=== PATIENT | female | born 1965 | race Caucasian/White ===

== ENCOUNTER → 2016-09-22 | Outpatient (CLI) | payer OTHER ==
--- NOTE | 2016-09-22 11:39 | REP ---
BILATERAL MAMMOGRAM WITH DIAGNOSTIC MAMMOGRAM RIGHT BREAST AND RIGHT BREAST ULTRASOUND: Bilateral mammography performed in the MLO and CC projections. Comparison made with prior studies 10/06/2010 and 10/28/2006. Moderate fibroglandular tissue is seen bilaterally. I see no mass or architectural distortion. Scattered tiny calcifications are again seen bilaterally compatible with sclerosis adenosis. Reportedly, there is a palpable abnormality at 12 -o'clock position right breast and that area is marked on the skin with a triangular marker. Additional spot compression views of that area failed to reveal an underlying mass. Real-time sonographic evaluation of the right breast is performed in the region of the 12 -o'clock position and demonstrates no cystic or solid nodule. IMPRESSION: ACR 2 benign. No mass or clustered microcalcifications. There is no mammographic or sonographic evidence of a mass at the site of the reported palpable abnormality at 12 -o'clock position right breast. A negative mammogram and ultrasound should not deter biopsy of there is a clinically suspicious palpable mass present. Recommend followup mammogram in one year. BI-RADS/ACR category 2 mammogram. Benign finding(s). Routine annual screening mammography (for women over age 40). This mammogram was interpreted with the aid of an FDA-approved computer-aided detection system. A. Negative x-ray reports should not delay biopsy if a dominant or clinically suspicious mass is present. B. Four to eight percent of cancers are not identified by x-ray. C. Adenosis and dense breasts may obscure an underlying neoplasm. The patient states she/he had a clinical breast exam in August 2016. The patient letter being requested is M2. Signed by Wolf Mercado MD 09/22/2016 05:21 P
== END ==
LOC: M RAD 09:30
PROVIDERS: ATTEND Family Medicine
DX: Z12.39 Encounter for other screening for malignant neoplasm of breast (principal); N63 Unspecified lump in breast

== ENCOUNTER → 2016-10-22 | Day surgery (SDC) | payer OTHER ==
[~2016-10-22] VITALS: Ht 170.2 cm; Wt 73.0 kg
[~2016-10-22] MED LIST: ATEN25TA PO; BUPIVACAINE/EPIN 0.25% 30 ML VIAL As Ordered ONE; CLINDAMYCIN 600 MG in APPROPRIATE DILUENT 1 EA IV ONE; EFFE150C PO; ENAL5TAB PO; GABA-283 PO; GLYCOPYRROLATE INJ 0.2 MG/ML 2 ML VIAL As Ordered ONE; HYDRO50TAB GT; LIDOCAINE 2% INJ 100 MG/5 ML SDV (FOR ANES.) As Ordered ONE; LR 1,000 ML IV SCH; MEPERIDINE INJ 25 MG/ML VIAL (J2175) IV PRN; MIDAZOLAM INJ 2 MG/2 ML VIAL (J2250) As Ordered ONE; NEOSTIGMINE 1MG/ML 5 ML SYRINGE (J2710) As Ordered ONE; NITR4TASL SL; NORCO, ANEXSIA 5/325MG TABLET (HYDROcodone/ACETAMINOPHEN) PO PRN; ONDANSETRON 4MG/2ML VIAL (J2405) As Ordered ONE; ONDANSETRON 4MG/2ML VIAL (J2405) IV PRN; PHENYLephrine HCL 500 MCG/5 ML (100MCG/ML) SYRINGE (J2370) As Ordered ONE; PRIL20CA9 PO; PROPOFOL 200 MG/20 ML VIAL As Ordered ONE; ROCURONIUM BROMIDE 50 MG/5 ML VIAL As Ordered ONE; SCOPOLAMINE 1.5 MG TRANSDERMAL As Ordered ONE; SCOPOLAMINE 1.5 MG TRANSDERMAL TOP ONE; VIST50CA PO; WELLTAB40 PO; XANA0.25 PO; ePHEDrine SULFATE 25 MG/5 ML(5MG/ML) SYRINGE As Ordered ONE; fentaNYL 100 MCG/2 ML INJECTION (J3010) As Ordered ONE; fentaNYL 100 MCG/2 ML INJECTION (J3010) IV PRN
[2016-10-22 10:10] VITALS: BP 110/60
--- NOTE | 2016-10-22 21:28 | RO ---
DATE OF PROCEDURE: 10/22/2016 PREOPERATIVE DIAGNOSIS: Symptomatic cholelithiasis. POSTOPERATIVE DIAGNOSIS: Symptomatic cholelithiasis. PROCEDURE: Laparoscopic cholecystectomy. SURGEON: Dr. Wolf Correa GYROSCOPIC INSTRUMENT MECHANIC: Dr. Nnamdi Rosas ANESTHESIA: General. ESTIMATED BLOOD LOSS: 5 mL. COMPLICATIONS: None. INDICATION FOR PROCEDURE: The patient is a 50-year-old female who presents with a history of persistent right upper quadrant abdominal pain, found to have stones on ultrasound. Recommendation was then to proceed with laparoscopic, possible open cholecystectomy. Risks and benefits of the procedure, not limited to but including bleeding, infection, hernia formation, damage to surrounding structures, and possible need for further surgery discussed in detail with the patient, informed consent was obtained and procedure was planned. DESCRIPTION OF PROCEDURE: The patient was brought back to operating room eight and after sufficient sedation, the abdomen was sterilely prepped and draped. Next, a time out was done to confirm proper patient and proper procedure. Following that, a stab incision was made in the left upper quadrant. Veress needle was inserted and the abdomen was insufflated to 15 mmHg. Next, a 5 mm infraumbilical incision was made. A 5 mm Optiview port was then used to gain access to the abdomen. Once the abdomen was entered, Veress needle site was examined. There were no signs of injury. Veress needle was then removed. 10 mm port was placed subxiphoid, two 5 mm ports in the right upper quadrant. The cystic duct and cystic artery were both then clearly dissected free. They were both then doubly clipped and cut. Gallbladder was then removed from the gallbladder fossa using electrocautery and then brought out through the subxiphoid port site in a 10 mm Endo Catch bag. The abdomen was then desufflated. Skin incisions were closed with #4-0 Vicryl subcuticular sutures. The abdomen was cleaned and dried. Steri-Strips, 4 x 4 and tape were applied, thus ending procedure.
== END | disposition home or self-care (01) ==
LOC: M SDC 06:06
PROVIDERS: ATTEND Surgery
DX: K80.20 Calculus of gallbladder without cholecystitis without obstruction (principal); I10 Essential (primary) hypertension; I25.2 Old myocardial infarction; F32.9 Major depressive disorder, single episode, unspecified; F17.290 Nicotine dependence, other tobacco product, uncomplicated; R94.31 Abnormal electrocardiogram [ECG] [EKG]; I20.9 Angina pectoris, unspecified; K21.9 Gastro-esophageal reflux disease without esophagitis; G89.29 Other chronic pain; M54.9 Dorsalgia, unspecified; M12.9 Arthropathy, unspecified; F41.9 Anxiety disorder, unspecified; M79.7 Fibromyalgia; G47.30 Sleep apnea, unspecified; Z88.1 Allergy status to other antibiotic agents; Z88.5 Allergy status to narcotic agent; Z88.6 Allergy status to analgesic agent; Z79.899 Other long term (current) drug therapy; Z98.84 Bariatric surgery status; Z90.710 Acquired absence of both cervix and uterus; Z98.51 Tubal ligation status
CPT/HCPCS: 47562; 88304; J2250; J2370; J2405; J2710; J3010

== ENCOUNTER 2016-11-07 14:23 | Emergency (ER) | payer OTHER ==
[~2016-11-07 14:23] MED LIST changes: -BUPIVACAINE/EPIN 0.25% 30 ML VIAL As Ordered ONE; -CLINDAMYCIN 600 MG in APPROPRIATE DILUENT 1 EA IV ONE; -GLYCOPYRROLATE INJ 0.2 MG/ML 2 ML VIAL As Ordered ONE; -LIDOCAINE 2% INJ 100 MG/5 ML SDV (FOR ANES.) As Ordered ONE; -LR 1,000 ML IV SCH; -MEPERIDINE INJ 25 MG/ML VIAL (J2175) IV PRN; -MIDAZOLAM INJ 2 MG/2 ML VIAL (J2250) As Ordered ONE; -NEOSTIGMINE 1MG/ML 5 ML SYRINGE (J2710) As Ordered ONE; -NORCO, ANEXSIA 5/325MG TABLET (HYDROcodone/ACETAMINOPHEN) PO PRN; -ONDANSETRON 4MG/2ML VIAL (J2405) As Ordered ONE; -ONDANSETRON 4MG/2ML VIAL (J2405) IV PRN; -PHENYLephrine HCL 500 MCG/5 ML (100MCG/ML) SYRINGE (J2370) As Ordered ONE; -PROPOFOL 200 MG/20 ML VIAL As Ordered ONE; -ROCURONIUM BROMIDE 50 MG/5 ML VIAL As Ordered ONE; -SCOPOLAMINE 1.5 MG TRANSDERMAL As Ordered ONE; -SCOPOLAMINE 1.5 MG TRANSDERMAL TOP ONE; -ePHEDrine SULFATE 25 MG/5 ML(5MG/ML) SYRINGE As Ordered ONE; -fentaNYL 100 MCG/2 ML INJECTION (J3010) As Ordered ONE; -fentaNYL 100 MCG/2 ML INJECTION (J3010) IV PRN
--- NOTE | 2016-11-07 15:06 | REP ---
Clinical: Trauma. Technique: AP, lateral, bilateral oblique and sunrise views of the right knee. Comparison: 03/28/2011. Findings: Mild tricompartmental osteoarthritic degenerative changes minimally progressed from prior examination. No acute fracture or dislocation. Small effusion cannot be excluded. No subcutaneous emphysema or radiodense foreign body. Impression: Mild tricompartmental degenerative changes. Possible small effusion. No acute fracture or dislocation Signed by Chris Ackerman MD 11/07/2016 02:58 P
[2016-11-07] MEDS ORDERED: ACETAMINOPHEN 325 MG TAB As Ordered ONE (15:43)
--- NOTE | 2016-11-07 15:53 | EDDOCDS ---
Physician Documentation [facility] Name: Lisa Samuel Age: 50 yrs Sex: Female : 1965 Arrival Date: 11/07/2016 Time: 14:23 Bed Triage 2 Private MD: Robbie Barnett W Disposition: 11/07/16 15:25 Discharged to Home/Self Care. Impression: Pain in right knee. - Condition is Stable. - Discharge Instructions: Knee Bracing, Knee Pain. - Medication Reconciliation, Local Pharmacy Hours form. - Follow up: Orthopaedics, [facility]; When: Call to arrange an appointment; Reason: Further diagnostic work-up, Recheck today's complaints, Continuance of care. - Problem is new. - Symptoms are unchanged. Historical: - Allergies: Keflex; Reglan; Ibuprofen (gastric bypass); - Home Meds: 1. atenolol 25 mg Oral tab 1 tab once daily 2. enalapril maleate 5 mg Oral tab 1 tab once daily 3. gabapentin 400 mg oral tab 3 times per day 4. Prilosec 20 mg Oral cpDR 1 cap 2 times per day 5. Wellbutrin XL 300 mg Oral Tb24 1 tab once daily 6. NitroQuick SL daily 7. Effexor 150 mg Oral daily 8. Vyvanse 20 mg oral cap once daily 9. hydroxyzine HCl 100 mg Oral tab nightly 1-2 tabs prn 10. Xanax 0.5 mg Oral tab 3 times per day - PMHx: CAD; Depression; Fibromyalgia; Hypertension; [place]; - PSHx: discetomy/laminectomy 01/2014; Hysterectomy; Laminectomy. lumbar; Gastric Bypass (October 2010); Cholecystectomy; - Social history: Smoking status: Patient uses tobacco products, current every day smoker. No barriers to communication noted, The patient speaks fluent Turkmen, Speaks appropriately for age. - Family history: Not pertinent. - : The pt / caregiver states he / she is not on anticoagulants. Home medication list is obtained from the patient. - Exposure Risk Screening:: None identified. 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 7 in. (170.18 cm) (R); Pain 10/10; 14:24 Body Mass Index 27.10 (78.47 kg, 170.18 cm) gr2 MDM: 14:34 Knee, Complete Ordered. EDMS 15:16 Financial registration complete. lg 15:25 Knee Immobilizer ordered. btw 15:25 Crutches ordered. btw 15:42 Acetaminophen Tablet 975 mg PO once ordered. btw Administered Medications: 15:49 Drug: Acetaminophen 975 mg [acetaminophen 325 mg tablet (3 tabs)] Route: PO; [facility] 15:52 Follow up: Response: Pt left department before re-evaluation is appropriate [facility] Signatures: Dispatcher [employer] EDMS Ruth Meyer, RN RN Umm Baer, Reg Reg Jim Rebolledo PA PA btw Gabi Lewis RN RN [facility] MTDD
--- NOTE | 2016-11-07 15:53 | EDDOCDS ---
Nurse's Notes [facility] Name: Lisa Samuel Age: 50 yrs Sex: Female : 1965 Arrival Date: 11/07/2016 Time: 14:23 Bed Triage 2 Private MD: Robbie Barnett W Diagnosis: Pain in right knee Presentation: 11/07 14:28 Presenting complaint: Patient states: right knee pain while dancing last night .felt srm knee popped. states its swollen and feels like its disconnected when i walk. Adult Sepsis Screening: The patient does not have new or worsening altered mentation. Patient's respiratory rate is less than 22. Systolic blood pressure is greater than 100. Patient has a qSOFA score of 0- Negative Sepsis Screen. Suicide/Homicide risk assessment- the patient denies having any suicidal and/or homicidal ideations and does not present with any other emotional, behavioral or mental health complaints. 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 Transition of care: patient was not received from another setting of care. 14:28 Acuity: BUDDY Level 4 srm 14:28 Method Of Arrival: Wheelchair [facility] Triage Assessment: 14:32 General: Appears in no apparent distress, Behavior is appropriate for age, cooperative. srm Pain: Pain currently is 6 out of 10 on a pain scale. HIV screening NA for this visit Offered previously. 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 atenolol 25 mg Oral tab 1 tab once daily 2. enalapril maleate 5 mg Oral tab 1 tab once daily 3. gabapentin 400 mg oral tab 3 times per day 4. Prilosec 20 mg Oral cpDR 1 cap 2 times per day 5. Wellbutrin XL 300 mg Oral Tb24 1 tab once daily 6. NitroQuick SL daily 7. Effexor 150 mg Oral daily 8. Vyvanse 20 mg oral cap once daily 9. hydroxyzine HCl 100 mg Oral tab nightly 1-2 tabs prn 10. Xanax 0.5 mg Oral tab 3 times per day - PMHx: CAD; Depression; Fibromyalgia; Hypertension; [place]; - PSHx: discetomy/laminectomy 01/2014; Hysterectomy; Laminectomy. lumbar; Gastric Bypass (October 2010); Cholecystectomy; - Social history: Smoking status: Patient uses tobacco products, current every day smoker. No barriers to communication noted, The patient speaks fluent Samoan, Speaks appropriately for age. - Family history: Not pertinent. - : The pt / caregiver states he / she is not on anticoagulants. Home medication list is obtained from the patient. - Exposure Risk Screening:: None identified. Screenin:49 Screening information is obtained from the patient. Fall risk: No risks identified. [facility] Assistance ADL's: requires no assistance with activities of daily living. Abuse/DV Screen: The patient / caregiver reports he/she is: not in a situation that causes fear, pain or injury. Nutritional screening: No deficits noted. Advance Directives: There is no active DNR order. home support is adequate. Assessment: 15:49 General: Appears uncomfortable, Behavior is crying, related concerns regarding pain to [facility] provider, medications ordered and administered. Pain: Location: right knee Pain currently is 10 out of 10 on a pain scale. Respiratory: Airway is patent Respiratory effort is even, unlabored, Respiratory pattern is regular, symmetrical. Derm: Skin is pink, warm & dry. Vital Signs: 14:24 BP 145 / 81; Pulse 107; Resp 18 S; Temp 98.7(O); Pulse Ox 99% on R/A; Weight 78.47 kg gr2 (R); Height 5 ft. 7 in. (170.18 cm) (R); Pain 10/10; 14:24 Body Mass Index 27.10 (78.47 kg, 170.18 cm) gr2 Vitals: 14:24 Log In Time: November 07, 2016 at 14:24. gr2 ED Course: 14:24 Patient visited by Jaqueline Hogan. gr2 14:24 Robbie Barnett is Private Physician. gr2 14:24 Patient moved to Waiting gr2 14:25 Patient visited by Jaqueline Hogan. gr2 14:26 Patient moved to Pre RCE gr2 14:29 Triage Initiated srm 15:09 Knee, Complete Returned. EDMS 15:10 Patient moved to Triage 2 bcj 15:14 Jim Rebolledo PA is PHCP. btw 15:14 Bianca Wheat MD is Attending Physician. btw 15:14 Patient visited by Jim Rebolledo PA. btw 15:[facility]. btw 15:49 Patient visited by Yaneli Lynn. sew 15:49 The patient / caregiver is instructed regarding the plan of care and ED course. [facility] 15:49 Crutch training done. Knee immobilizer applied on right knee. Patient with positive sew distal sensation and brisk distal capillary refill after application. 15:49 No IV's were initiated during this patient's visit. No procedures done that require [facility] assistance. Administered Medications: 15:49 Drug: Acetaminophen 975 mg [acetaminophen 325 mg tablet (3 tabs)] Route: PO; [facility] 15:52 Follow up: Response: Pt left department before re-evaluation is appropriate [facility] Order Results: Radiology Order: Knee, Complete Test: Knee, Complete REASON FOR EXAMINATION: Trauma; Clinical: Trauma.; ; Technique: AP, lateral, bilateral oblique and sunrise views of the right knee.; ; Comparison: 03/28/2011.; ; Findings:; Mild tricompartmental osteoarthritic degenerative changes minimally progressed; from prior examination. No acute fracture or dislocation. Small effusion cannot; be excluded. No subcutaneous emphysema or radiodense foreign body.; ; Impression:; Mild tricompartmental degenerative changes.; Possible small effusion.; No acute fracture or dislocation; ; ; Signed by; Chris Ackerman MD 11/07/2016 02:58 P; Outcome: 15:25 Discharge ordered by Provider. btw 15:49 Discharge Assessment: Patient awake, alert and oriented x 3. No cognitive and/or [facility] functional deficits noted. Patient verbalized understanding of disposition instructions. patient administered narcotics - no. The following High Risk Discharge criteria are identified: None. Discharged to home with crutches, with significant other. Condition: good Condition: stable Condition: improved. Discharge instructions given to patient, Instructed on discharge instructions, follow up and referral plans. Rest, Ice, Compression and Elevation. Demonstrated understanding of instructions, medications, Pt was receptive of discharge instructions/ teaching. No special radiology studies were completed. Property :Personal belongings accompany Pt. 15:52 Patient left the ED. [facility] Signatures: Dispatcher [employer] EDNV Gonzalez Billingsley RN RN bcj Michelson, Staci, RN RN srm Wolfenden, Brandon, PA PA btw Hafner, Jane, RN RN [facility] Yaneli Lynn Gainslee gr2 JOEY
--- NOTE | 2016-11-09 16:53 | EDDOCDS ---
Physician Documentation [facility] Name: Lisa Samuel Age: 50 yrs Sex: Female : 1965 Arrival Date: 11/07/2016 Time: 14:23 Bed Triage 2 Private MD: Robbie Barnett W Disposition: 11/07/16 15:25 Discharged to Home/Self Care. Impression: Pain in right knee. - Condition is Stable. - Discharge Instructions: Knee Bracing, Knee Pain. - Medication Reconciliation, Local Pharmacy Hours form. - Follow up: Orthopaedics, [facility]; When: Call to arrange an appointment; Reason: Further diagnostic work-up, Recheck today's complaints, Continuance of care. - Problem is new. - Symptoms are unchanged. Historical: - Allergies: Keflex; Reglan; Ibuprofen (gastric bypass); - Home Meds: 1. atenolol 25 mg Oral tab 1 tab once daily 2. enalapril maleate 5 mg Oral tab 1 tab once daily 3. gabapentin 400 mg oral tab 3 times per day 4. Prilosec 20 mg Oral cpDR 1 cap 2 times per day 5. Wellbutrin XL 300 mg Oral Tb24 1 tab once daily 6. NitroQuick SL daily 7. Effexor 150 mg Oral daily 8. Vyvanse 20 mg oral cap once daily 9. hydroxyzine HCl 100 mg Oral tab nightly 1-2 tabs prn 10. Xanax 0.5 mg Oral tab 3 times per day - PMHx: CAD; Depression; Fibromyalgia; Hypertension; [place]; - PSHx: discetomy/laminectomy 01/2014; Hysterectomy; Laminectomy. lumbar; Gastric Bypass (October 2010); Cholecystectomy; - Social history: Smoking status: Patient uses tobacco products, current every day smoker. No barriers to communication noted, The patient speaks fluent Yakut, Speaks appropriately for age. - Family history: Not pertinent. - : The pt / caregiver states he / she is not on anticoagulants. Home medication list is obtained from the patient. - Exposure Risk Screening:: None identified. 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 7 in. (170.18 cm) (R); Pain 10/10; 14:24 Body Mass Index 27.10 (78.47 kg, 170.18 cm) gr2 MDM: 14:34 Knee, Complete Ordered. EDMS 15:16 Financial registration complete. lg 15:25 Knee Immobilizer ordered. btw 15:25 Crutches ordered. btw 15:42 Acetaminophen Tablet 975 mg PO once ordered. btw 16:03 [facility] Payment Agreement was scanned into [employer] and attached to record. lg 21:22 T-Sheet-- Draft Copy was scanned into [employer] and attached to record. klr Administered Medications: 15:49 Drug: Acetaminophen 975 mg [acetaminophen 325 mg tablet (3 tabs)] Route: PO; [facility] 15:52 Follow up: Response: Pt left department before re-evaluation is appropriate [facility] Signatures: Dispatcher [employer] EDMS Ruth Meyer, RN KATHRYN [facility] Umm Car, Adair Reg Jim Rebolledo PA PA w Gabi Lewis RN RN [facility] Anaya Perez klpadmini The chart was reviewed and I authenticate all verbal orders and agree with the evaluation and treatment provided.Attachments: 16:03 [facility] Payment Agreement lg 21:22 T-Sheet-- Draft Copy klr Chart Complete MTDD
--- NOTE | 2016-11-09 16:53 | EDDOCDS ---
Nurse's Notes [facility] Name: Lisa Samuel Age: 50 yrs Sex: Female : 1965 Arrival Date: 11/07/2016 Time: 14:23 Bed Triage 2 Private MD: Robbie Barnett W Diagnosis: Pain in right knee Presentation: 11/07 14:28 Presenting complaint: Patient states: right knee pain while dancing last night .felt srm knee popped. states its swollen and feels like its disconnected when i walk. Adult Sepsis Screening: The patient does not have new or worsening altered mentation. Patient's respiratory rate is less than 22. Systolic blood pressure is greater than 100. Patient has a qSOFA score of 0- Negative Sepsis Screen. Suicide/Homicide risk assessment- the patient denies having any suicidal and/or homicidal ideations and does not present with any other emotional, behavioral or mental health complaints. Status: Patient is not a financial services auditor or dependent. Transition of care: patient was not received from another setting of care. 14:28 Acuity: BUDDY Level 4 srm 14:28 Method Of Arrival: Wheelchair [facility] Triage Assessment: 14:32 General: Appears in no apparent distress, Behavior is appropriate for age, cooperative. srm Pain: Pain currently is 6 out of 10 on a pain scale. HIV screening NA for this visit Offered previously. 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 atenolol 25 mg Oral tab 1 tab once daily 2. enalapril maleate 5 mg Oral tab 1 tab once daily 3. gabapentin 400 mg oral tab 3 times per day 4. Prilosec 20 mg Oral cpDR 1 cap 2 times per day 5. Wellbutrin XL 300 mg Oral Tb24 1 tab once daily 6. NitroQuick SL daily 7. Effexor 150 mg Oral daily 8. Vyvanse 20 mg oral cap once daily 9. hydroxyzine HCl 100 mg Oral tab nightly 1-2 tabs prn 10. Xanax 0.5 mg Oral tab 3 times per day - PMHx: CAD; Depression; Fibromyalgia; Hypertension; [place]; - PSHx: discetomy/laminectomy 01/2014; Hysterectomy; Laminectomy. lumbar; Gastric Bypass (October 2010); Cholecystectomy; - Social history: Smoking status: Patient uses tobacco products, current every day smoker. No barriers to communication noted, The patient speaks fluent Macedonian, Speaks appropriately for age. - Family history: Not pertinent. - : The pt / caregiver states he / she is not on anticoagulants. Home medication list is obtained from the patient. - Exposure Risk Screening:: None identified. Screenin:49 Screening information is obtained from the patient. Fall risk: No risks identified. [facility] Assistance ADL's: requires no assistance with activities of daily living. Abuse/DV Screen: The patient / caregiver reports he/she is: not in a situation that causes fear, pain or injury. Nutritional screening: No deficits noted. Advance Directives: There is no active DNR order. home support is adequate. Assessment: 15:49 General: Appears uncomfortable, Behavior is crying, related concerns regarding pain to [facility] provider, medications ordered and administered. Pain: Location: right knee Pain currently is 10 out of 10 on a pain scale. Respiratory: Airway is patent Respiratory effort is even, unlabored, Respiratory pattern is regular, symmetrical. Derm: Skin is pink, warm & dry. Vital Signs: 14:24 BP 145 / 81; Pulse 107; Resp 18 S; Temp 98.7(O); Pulse Ox 99% on R/A; Weight 78.47 kg gr2 (R); Height 5 ft. 7 in. (170.18 cm) (R); Pain 10/10; 14:24 Body Mass Index 27.10 (78.47 kg, 170.18 cm) gr2 Vitals: 14:24 Log In Time: November 07, 2016 at 14:24. gr2 ED Course: 14:24 Patient visited by Jaqueline Hogan. gr2 14:24 Robbie Barnett is Private Physician. gr2 14:24 Patient moved to Waiting gr2 14:25 Patient visited by Jaqueline Hogan. gr2 14:26 Patient moved to Pre RCE gr2 14:29 Triage Initiated srm 15:09 Knee, Complete Returned. EDMS 15:10 Patient moved to Triage 2 bcj 15:14 Jim Rebolledo PA is PHCP. btw 15:14 Bianca Wheat MD is Attending Physician. btw 15:14 Patient visited by Jim Rebolledo PA. btw 15:25 [facility]. btw 15:49 Patient visited by Yaneli Lynn. sew 15:49 The patient / caregiver is instructed regarding the plan of care and ED course. [facility] 15:49 Crutch training done. Knee immobilizer applied on right knee. Patient with positive sew distal sensation and brisk distal capillary refill after application. 15:49 No IV's were initiated during this patient's visit. No procedures done that require [facility] assistance. 16:03 [facility] Payment Agreement was scanned into [employer] and attached to record. lg 21:22 T-Sheet-- Draft Copy was scanned into [employer] and attached to record. klr Administered Medications: 15:49 Drug: Acetaminophen 975 mg [acetaminophen 325 mg tablet (3 tabs)] Route: PO; [facility] 15:52 Follow up: Response: Pt left department before re-evaluation is appropriate [facility] Order Results: Radiology Order: Knee, Complete Test: Knee, Complete REASON FOR EXAMINATION: Trauma; Clinical: Trauma.; ; Technique: AP, lateral, bilateral oblique and sunrise views of the right knee.; ; Comparison: 03/28/2011.; ; Findings:; Mild tricompartmental osteoarthritic degenerative changes minimally progressed; from prior examination. No acute fracture or dislocation. Small effusion cannot; be excluded. No subcutaneous emphysema or radiodense foreign body.; ; Impression:; Mild tricompartmental degenerative changes.; Possible small effusion.; No acute fracture or dislocation; ; ; Signed by; Chris Ackerman MD 11/07/2016 02:58 P; Outcome: 15:25 Discharge ordered by Provider. [facility] 15:49 Discharge Assessment: Patient awake, alert and oriented x 3. No cognitive and/or [facility] functional deficits noted. Patient verbalized understanding of disposition instructions. patient administered narcotics - no. The following High Risk Discharge criteria are identified: None. Discharged to home with crutches, with significant other. Condition: good Condition: stable Condition: improved. Discharge instructions given to patient, Instructed on discharge instructions, follow up and referral plans. Rest, Ice, Compression and Elevation. Demonstrated understanding of instructions, medications, Pt was receptive of discharge instructions/ teaching. No special radiology studies were completed. Property :Personal belongings accompany Pt. 15:52 Patient left the ED. [facility] Signatures: Dispatcher [employer] EDGonzalez Quintana, RN RN Ruth Abbasi, RN RN Umm Baer, Adair Reg Jim Rodriguez PA PA btw Hafner, JaneRN RN [facility] Yaneli Lynn Gainslee gr2 Anaya Perez Chart Complete MTDD
--- NOTE | 2016-11-09 16:53 | EDDOCDS ---
Physician Documentation [facility] Name: Lisa Samuel Age: 50 yrs Sex: Female : 1965 Arrival Date: 11/07/2016 Time: 14:23 Bed Triage 2 Private MD: Robbie Barnett W Disposition: 11/07/16 15:25 Discharged to Home/Self Care. Impression: Pain in right knee. - Condition is Stable. - Discharge Instructions: Knee Bracing, Knee Pain. - Medication Reconciliation, Local Pharmacy Hours form. - Follow up: Orthopaedics, [facility]; When: Call to arrange an appointment; Reason: Further diagnostic work-up, Recheck today's complaints, Continuance of care. - Problem is new. - Symptoms are unchanged. Historical: - Allergies: Keflex; Reglan; Ibuprofen (gastric bypass); - Home Meds: 1. atenolol 25 mg Oral tab 1 tab once daily 2. enalapril maleate 5 mg Oral tab 1 tab once daily 3. gabapentin 400 mg oral tab 3 times per day 4. Prilosec 20 mg Oral cpDR 1 cap 2 times per day 5. Wellbutrin XL 300 mg Oral Tb24 1 tab once daily 6. NitroQuick SL daily 7. Effexor 150 mg Oral daily 8. Vyvanse 20 mg oral cap once daily 9. hydroxyzine HCl 100 mg Oral tab nightly 1-2 tabs prn 10. Xanax 0.5 mg Oral tab 3 times per day - PMHx: CAD; Depression; Fibromyalgia; Hypertension; CT; - PSHx: discetomy/laminectomy 01/2014; Hysterectomy; Laminectomy. lumbar; Gastric Bypass (October 2010); Cholecystectomy; - Social history: Smoking status: Patient uses tobacco products, current every day smoker. No barriers to communication noted, The patient speaks fluent Latvian, Speaks appropriately for age. - Family history: Not pertinent. - : The pt / caregiver states he / she is not on anticoagulants. Home medication list is obtained from the patient. - Exposure Risk Screening:: None identified. JAVA J2EE TECHNICAL LEAD: 11/07 14:32 LMP N/A - [facility] Vital Signs: 14:24 BP 145 / 81; Pulse 107; Resp 18 S; Temp 98.7(O); Pulse Ox 99% on R/A; Weight 78.47 kg / gr2 173 lbs (R); Height 5 ft. 7 in. (170.18 cm) (R); Pain 10/10; 14:24 Body Mass Index 27.10 (78.47 kg, 170.18 cm) gr2 MDM: 14:34 Knee, Complete Ordered. EDMS 15:16 Financial registration complete. lg 15:25 Knee Immobilizer ordered. btw 15:25 Crutches ordered. btw 15:42 Acetaminophen Tablet 975 mg PO once ordered. btw 16:03 [facility] Payment Agreement was scanned into [employer] and attached to record. lg 21:22 T-Sheet-- Draft Copy was scanned into [employer] and attached to record. klr Administered Medications: 15:49 Drug: Acetaminophen 975 mg [acetaminophen 325 mg tablet (3 tabs)] Route: PO; [facility] 15:52 Follow up: Response: Pt left department before re-evaluation is appropriate [facility] Signatures: Dispatcher [employer] EDMS Ruth Meyer, RN KATHRYN [facility] Umm Car, [place] Reg Jim Rebolledo PA PA w Gabi Lewis RN RN [facility] Anaya Perez klpadmini The chart was reviewed and I authenticate all verbal orders and agree with the evaluation and treatment provided.Attachments: 16:03 [facility] Payment Agreement lg 21:22 T-Sheet-- Draft Copy klr Chart Complete MTDD
== END 2016-11-07 15:52 | disposition home or self-care (01) ==
LOC: M ED 14:23
DX: M25.561 Pain in right knee (principal); I10 Essential (primary) hypertension; I25.10 Atherosclerotic heart disease of native coronary artery without angina pectoris; F32.9 Major depressive disorder, single episode, unspecified; M79.7 Fibromyalgia; I25.2 Old myocardial infarction; Z79.899 Other long term (current) drug therapy; Z88.1 Allergy status to other antibiotic agents; Z88.8 Allergy status to other drugs, medicaments and biological substances; Z88.6 Allergy status to analgesic agent; Z98.84 Bariatric surgery status; F17.210 Nicotine dependence, cigarettes, uncomplicated

== ENCOUNTER → 2017-02-08 | Outpatient (REF) | payer OTHER ==
[2017-02-08 18:51] LABS: ALBUMIN 3.6 GM/DL (3.2-5.2); ALBUMIN/GLOBULIN RATIO 1.16 (1.00-1.93); ALKALINE PHOSPHATASE 81 U/L (45-117); ALT/SGPT 21 U/L (12-78); ANION GAP 6 MEQ/L (8-16); AST/SGOT 11 U/L (15-37); BILIRUBIN,TOTAL 0.4 MG/DL (0.2-1.0); BLOOD UREA NITROGEN 8 MG/DL (7-18); CALCIUM LEVEL 8.9 MG/DL (8.5-10.1); CARBON DIOXIDE LEVEL 26 MEQ/L (21-32); CHLORIDE LEVEL 107 MEQ/L (98-107); CHOLESTEROL LEVEL 203 MG/DL (<200); CREATININE FOR GFR 0.69 MG/DL (0.55-1.02); GLOMERULAR FILTRATION RATE > 60.0 (>58); GLUCOSE, FASTING 88 MG/DL (70-105); POTASSIUM SERUM 4.2 MEQ/L (3.5-5.1); SODIUM LEVEL 139 MEQ/L (136-145); TOTAL PROTEIN 6.7 GM/DL (6.4-8.2); TRIGLYCERIDES LEVEL 104 MG/DL (<150)
== END ==
LOC: M SFHCCLAY 09:45
PROVIDERS: ATTEND Family Medicine
DX: E78.2 Mixed hyperlipidemia (principal); I10 Essential (primary) hypertension

== ENCOUNTER → 2017-04-19 | Outpatient (REF) | payer OTHER ==
[2017-04-20 14:20] LABS: ANION GAP 10 MEQ/L (8-16); BLOOD UREA NITROGEN 8 MG/DL (7-18); CALCIUM LEVEL 8.8 MG/DL (8.5-10.1); CARBON DIOXIDE LEVEL 24 MEQ/L (21-32); CHLORIDE LEVEL 105 MEQ/L (98-107); CREATININE FOR GFR 0.72 MG/DL (0.55-1.02); FERRITIN 8 NG/ML (8-252); GLOMERULAR FILTRATION RATE > 60.0 (>58); GLUCOSE, FASTING 83 MG/DL (70-105); POTASSIUM SERUM 4.9 MEQ/L (3.5-5.1); SODIUM LEVEL 139 MEQ/L (136-145)
== END ==
LOC: M SFHCCLAY 16:35
PROVIDERS: ATTEND Family Medicine
DX: R61 Generalized hyperhidrosis (principal); R19.7 Diarrhea, unspecified

== ENCOUNTER → 2017-04-22 | Outpatient (REF) | payer OTHER | LOC: M LAB REF 10:48 → M LABDRAWC 10:48 | PROVIDERS: ATTEND Nurse Practitioner Psychiatric/Mental Health | DX: F60.3 Borderline personality disorder (principal) ==

== ENCOUNTER → 2017-04-22 | Outpatient (REF) | payer OTHER | LOC: M SFHCCLAY 10:43 | PROVIDERS: ATTEND Family Medicine | DX: R19.7 Diarrhea, unspecified (principal) ==

== ENCOUNTER → 2017-08-24 | Outpatient (REF) | payer OTHER | LOC: M SFHCCLAY 16:37 | PROVIDERS: ATTEND Family Medicine | DX: R10.31 Right lower quadrant pain (principal) ==

== ENCOUNTER → 2018-02-15 | Outpatient (CLI) | payer OTHER | LOC: M RAD 13:30 | DX: R10.11 Right upper quadrant pain (principal); R10.31 Right lower quadrant pain; K43.9 Ventral hernia without obstruction or gangrene; N83.202 Unspecified ovarian cyst, left side | CPT/HCPCS: 74177 ==

== ENCOUNTER → 2018-02-15 | Outpatient (REF) | payer OTHER | LOC: M LAB REF 11:10 | DX: R10.11 Right upper quadrant pain (principal) | CPT/HCPCS: 87086 ==

== ENCOUNTER → 2018-02-15 | Outpatient (CLI) | payer OTHER ==
[2018-02-15 21:35] LABS: ALBUMIN/GLOBULIN RATIO 1.25 (1.00-1.93); ALKALINE PHOSPHATASE 78 U/L (45-117); ALT/SGPT 26 U/L (12-78); AMYLASE 81 U/L (25-115); ANION GAP 5 MEQ/L (8-16); AST/SGOT 20 U/L (7-37); BILIRUBIN,TOTAL 0.4 MG/DL (0.2-1.0); BLOOD UREA NITROGEN 7 MG/DL (7-18); CALCIUM LEVEL 8.9 MG/DL (8.5-10.1); CARBON DIOXIDE LEVEL 29 MEQ/L (21-32); CHLORIDE LEVEL 106 MEQ/L (98-107); CREATININE FOR GFR 0.76 MG/DL (0.55-1.30); GLOMERULAR FILTRATION RATE > 60.0 (>51); GLUCOSE, FASTING 81 MG/DL (70-100); LIPASE 135 U/L (73-393); POTASSIUM SERUM 4.8 MEQ/L (3.5-5.1); SODIUM LEVEL 140 MEQ/L (136-145); TOTAL PROTEIN 7.2 GM/DL (6.4-8.2)
[2018-02-15 22:36] LABS: BASO # 0.1 10^3/uL (0.0-0.2); BASO % 0.6 % (0.0-1.0); EOS # 0.4 10^3/uL (0.0-0.50); EOS % 3.9 % (0.0-3.0); HEMATOCRIT 40.7 % (36.0-47.0); IMMATURE GRANULOCYTE % 0.3 % (0-3.0); LYMPH # 2.7 10^3/uL (1.5-4.5); LYMPH % 23.7 % (24.0-44.0); MEAN CORPUSCULAR HEMOGLOBIN 27.2 pg (27.0-33.0); MEAN CORPUSCULAR HGB CONC 31.9 g/dl (32.0-36.5); MEAN CORPUSCULAR VOLUME 85.1 fl (80.0-96.0); MONO # 0.6 10^3/uL (0.0-0.8); NEUTROPHILS # 7.4 10^3/uL (1.8-7.7); NEUTROPHILS % 66.5 % (36.0-66.0); PLATELET COUNT, AUTOMATED 269 10^3/uL (150-450); RED BLOOD COUNT 4.78 10^6/uL (4.00-5.40); RED CELL DISTRIBUTION WIDTH 16.6 % (11.5-14.5); WHITE BLOOD COUNT 11.2 10^3/uL (4.0-10.0)
== END ==
LOC: M WUC 12:29
DX: R10.11 Right upper quadrant pain (principal); Z98.84 Bariatric surgery status
CPT/HCPCS: 82150

== ENCOUNTER 2018-03-10 07:22 | Day surgery (SDC) | payer OTHER ==
[2018-03-10] MEDS ORDERED: CLINDAMYCIN 600 MG in APPROPRIATE DILUENT 1 EA IV (07:30)
[2018-03-10] MEDS ORDERED: PROPOFOL 200 MG/20 ML VIAL As Ordered (08:12)
[2018-03-10] MEDS ORDERED: ROCURONIUM BROMIDE 50 MG/5 ML VIAL As Ordered (08:12)
[2018-03-10] MEDS ORDERED: LIDOCAINE 2% INJ 100 MG/5 ML SDV (FOR ANES.) As Ordered (08:12)
[2018-03-10] MEDS ORDERED: fentaNYL 100 MCG/2 ML INJECTION (J3010) As Ordered ×3 (08:13→10:09)
[2018-03-10] MEDS ORDERED: ONDANSETRON 4MG/2ML VIAL (J2405) As Ordered (08:13)
[2018-03-10] MEDS ORDERED: dexameTHASONE 4 MG/ML 1ML VIAL (J1100) As Ordered (08:13)
[2018-03-10] MEDS ORDERED: MIDAZOLAM INJ 2 MG/2 ML VIAL (J2250) As Ordered (08:13)
[2018-03-10] MEDS: LR 1,000 ML IV (08:30)
[2018-03-10] MEDS ORDERED: ePHEDrine SULFATE 25 MG/5 ML(5MG/ML) SYRINGE As Ordered (09:11)
[2018-03-10] MEDS ORDERED: PHENYLephrine HCL 500 MCG/5 ML (100MCG/ML) SYRINGE (J2370) As Ordered (09:15)
[2018-03-10] MEDS: BUPIVACAINE/EPIN 0.25% 30 ML VIAL As Ordered (09:23)
[2018-03-10] MEDS ORDERED: GLYCOPYRROLATE INJ 0.2 MG/ML 2 ML VIAL As Ordered ×2 (09:25)
[2018-03-10] MEDS ORDERED: NEOSTIGMINE 10 MG/10 ML VIAL (J2710) As Ordered (09:25)
[2018-03-10] MEDS: fentaNYL 100 MCG/2 ML INJECTION (J3010) IV ×4 (10:12→10:33)
[2018-03-10] MEDS ORDERED: MORPHINE 10 MG/ML 1ML VIAL (J2270) IV (10:15)
[2018-03-10] MEDS ORDERED: ONDANSETRON 4MG/2ML VIAL (J2405) IV (10:15)
[2018-03-10] MEDS: NORCO, ANEXSIA 5/325MG TABLET (HYDROcodone/ACETAMINOPHEN) PO ×2 (10:40→12:05)
== END 2018-03-10 14:15 | disposition home or self-care (01) ==
LOC: M SDC 07:22
DX: K43.0 Incisional hernia with obstruction, without gangrene (principal); I10 Essential (primary) hypertension; E03.9 Hypothyroidism, unspecified; K21.9 Gastro-esophageal reflux disease without esophagitis; E78.5 Hyperlipidemia, unspecified; F41.9 Anxiety disorder, unspecified; F32.9 Major depressive disorder, single episode, unspecified; Z88.1 Allergy status to other antibiotic agents; Z88.5 Allergy status to narcotic agent; Z79.899 Other long term (current) drug therapy; I25.2 Old myocardial infarction; I20.9 Angina pectoris, unspecified; F17.210 Nicotine dependence, cigarettes, uncomplicated
CPT/HCPCS: 49655

== ENCOUNTER 2018-03-13 18:11 | Emergency (ER) | payer OTHER ==
[2018-03-13] MEDS: KETOROLAC 30 MG/ML VIAL (J1885) IV (21:15)
[2018-03-13] MEDS: NS 500 ML IV (21:15)
[2018-03-13 21:38] LABS: BASO # 0.1 10^3/uL (0.0-0.2); BASO % 0.4 % (0.0-1.0); EOS # 0.2 10^3/uL (0.0-0.50); EOS % 1.4 % (0.0-3.0); HEMOGLOBIN 12.3 g/dl (12.0-15.5); IMMATURE GRANULOCYTE % 0.6 % (0-3.0); LYMPH # 1.5 10^3/uL (1.5-4.5); LYMPH % 10.5 % (24.0-44.0); MEAN CORPUSCULAR HEMOGLOBIN 27.6 pg (27.0-33.0); MEAN CORPUSCULAR HGB CONC 33.2 g/dl (32.0-36.5); MEAN CORPUSCULAR VOLUME 83.1 fl (80.0-96.0); MONO # 0.6 10^3/uL (0.0-0.8); MONO % 4.2 % (0.0-5.0); NEUTROPHILS # 11.8 10^3/uL (1.8-7.7); NEUTROPHILS % 82.9 % (36.0-66.0); PLATELET COUNT, AUTOMATED 222 10^3/uL (150-450); RED BLOOD COUNT 4.45 10^6/uL (4.00-5.40); RED CELL DISTRIBUTION WIDTH 16.2 % (11.5-14.5); WHITE BLOOD COUNT 14.2 10^3/uL (4.0-10.0)
[2018-03-13 21:44] LABS: ANION GAP 9 MEQ/L (8-16); BLOOD UREA NITROGEN 7 MG/DL (7-18); CALCIUM LEVEL 8.6 MG/DL (8.5-10.1); CARBON DIOXIDE LEVEL 27 MEQ/L (21-32); CHLORIDE LEVEL 102 MEQ/L (98-107); CREATININE FOR GFR 0.96 MG/DL (0.55-1.30); GLOMERULAR FILTRATION RATE > 60.0 (>51); GLUCOSE, FASTING 129 MG/DL (70-100); POTASSIUM SERUM 4.1 MEQ/L (3.5-5.1); SODIUM LEVEL 138 MEQ/L (136-145)
[2018-03-13 21:56] LABS: LACTIC ACID SEPSIS PROTOCOL 2.6 MMOL/L (0.4-2.0)
[2018-03-13] MEDS ORDERED: ISOVUE-370 76% 100ML VIAL (Q9967) As Ordered (22:13)
[2018-03-13] MEDS: LevoFLOXacin IV 750 MG in APPROPRIATE DILUENT 1 EA IV (23:38)
[2018-03-13] MEDS: NS 1,000 ML IV (23:38)
[2018-03-14 01:06] LABS: LACTIC ACID SEPSIS PROTOCOL 0.8 MMOL/L (0.4-2.0)
== END 2018-03-14 01:18 | disposition home or self-care (01) ==
LOC: M ED 03-14 01:18
DX: J18.1 Lobar pneumonia, unspecified organism (principal); I10 Essential (primary) hypertension; I25.2 Old myocardial infarction; E78.5 Hyperlipidemia, unspecified; K21.9 Gastro-esophageal reflux disease without esophagitis; F33.9 Major depressive disorder, recurrent, unspecified; F17.210 Nicotine dependence, cigarettes, uncomplicated; Z98.890 Other specified postprocedural states; Z88.5 Allergy status to narcotic agent; Z88.8 Allergy status to other drugs, medicaments and biological substances; Z79.899 Other long term (current) drug therapy
CPT/HCPCS: J1956

== ENCOUNTER 2018-04-11 16:43 | Emergency (ER) | payer OTHER ==
[2018-04-11] MEDS: NORCO, ANEXSIA 5/325MG TABLET (HYDROcodone/ACETAMINOPHEN) PO (19:02)
== END 2018-04-11 19:11 | disposition home or self-care (01) ==
LOC: M ED 16:43
DX: S92.215A Nondisplaced fracture of cuboid bone of left foot, initial encounter for closed fracture (principal); X50.1XXA Overexertion from prolonged static or awkward postures, initial encounter; Y92.098 Other place in other non-institutional residence as the place of occurrence of the external cause; I10 Essential (primary) hypertension; I25.2 Old myocardial infarction; M79.7 Fibromyalgia; J44.9 Chronic obstructive pulmonary disease, unspecified; K21.9 Gastro-esophageal reflux disease without esophagitis; M54.9 Dorsalgia, unspecified; F41.9 Anxiety disorder, unspecified; F32.9 Major depressive disorder, single episode, unspecified; Z98.84 Bariatric surgery status; F17.200 Nicotine dependence, unspecified, uncomplicated; Z88.8 Allergy status to other drugs, medicaments and biological substances; Z88.5 Allergy status to narcotic agent; Z88.1 Allergy status to other antibiotic agents; Z79.899 Other long term (current) drug therapy
CPT/HCPCS: 73630

== ENCOUNTER 2018-04-12 07:47 | Day surgery (SDC) | payer OTHER ==
[~2018-04-12 07:47] MED LIST changes: -ATEN25TA PO; -EFFE150C PO; -ENAL5TAB PO; -GABA-283 PO; -HYDRO50TAB GT; +LIDOCAINE 2% MDV 20 ML VIAL As Ordered; -NITR4TASL SL; -PRIL20CA9 PO; +PROPOFOL 200 MG/20 ML VIAL As Ordered; -VIST50CA PO; -WELLTAB40 PO; -XANA0.25 PO
[2018-04-12] MEDS: NS 1,000 ML IV (08:00)
== END 2018-04-12 09:55 | disposition home or self-care (01) ==
LOC: M OPP 07:47
DX: Z12.11 Encounter for screening for malignant neoplasm of colon (principal); K52.9 Noninfective gastroenteritis and colitis, unspecified; K62.1 Rectal polyp; K57.30 Diverticulosis of large intestine without perforation or abscess without bleeding; I10 Essential (primary) hypertension; I25.2 Old myocardial infarction; E78.00 Pure hypercholesterolemia, unspecified; M54.2 Cervicalgia; M79.7 Fibromyalgia; F41.9 Anxiety disorder, unspecified; F32.9 Major depressive disorder, single episode, unspecified; F17.210 Nicotine dependence, cigarettes, uncomplicated; M06.9 Rheumatoid arthritis, unspecified; Z79.82 Long term (current) use of aspirin; Z79.899 Other long term (current) drug therapy; Z88.8 Allergy status to other drugs, medicaments and biological substances; Z91.89 Other specified personal risk factors, not elsewhere classified; Z90.710 Acquired absence of both cervix and uterus
CPT/HCPCS: 45380

== ENCOUNTER → 2018-04-26 | Outpatient (REF) | payer OTHER ==
[2018-04-26 17:13] LABS: BASO # 0.1 10^3/uL (0.0-0.2); BASO % 0.5 % (0.0-1.0); EOS # 0.3 10^3/uL (0.0-0.50); EOS % 3.4 % (0.0-3.0); HEMOGLOBIN 12.3 g/dl (12.0-15.5); IMMATURE GRANULOCYTE % 0.8 % (0-3.0); LYMPH # 2.7 10^3/uL (1.5-4.5); LYMPH % 29.7 % (24.0-44.0); MEAN CORPUSCULAR HGB CONC 32.4 g/dl (32.0-36.5); MEAN CORPUSCULAR VOLUME 86.6 fl (80.0-96.0); MONO # 0.5 10^3/uL (0.0-0.8); MONO % 5.4 % (0.0-5.0); NEUTROPHILS # 5.5 10^3/uL (1.8-7.7); NEUTROPHILS % 60.2 % (36.0-66.0); PLATELET COUNT, AUTOMATED 253 10^3/uL (150-450); RED BLOOD COUNT 4.39 10^6/uL (4.00-5.40); RED CELL DISTRIBUTION WIDTH 15.9 % (11.5-14.5); WHITE BLOOD COUNT 9.1 10^3/uL (4.0-10.0)
[2018-04-26 17:19] LABS: ALBUMIN 3.6 GM/DL (3.2-5.2); ALBUMIN/GLOBULIN RATIO 1.16 (1.00-1.93); ALKALINE PHOSPHATASE 77 U/L (45-117); ALT/SGPT 21 U/L (12-78); ANION GAP 5 MEQ/L (8-16); AST/SGOT 10 U/L (7-37); BILIRUBIN,TOTAL 0.4 MG/DL (0.2-1.0); BLOOD UREA NITROGEN 5 MG/DL (7-18); C REACTIVE PROTEIN QUANTITATIV < 0.30 MG/DL (0.00-0.30); CALCIUM LEVEL 9.2 MG/DL (8.5-10.1); CARBON DIOXIDE LEVEL 29 MEQ/L (21-32); CHLORIDE LEVEL 106 MEQ/L (98-107); CREATININE FOR GFR 0.72 MG/DL (0.55-1.30); GLOMERULAR FILTRATION RATE > 60.0 (>51); GLUCOSE, FASTING 79 MG/DL (70-100); POTASSIUM SERUM 4.2 MEQ/L (3.5-5.1); RHEUMATOID FACTOR QUANT < 10.0 IU/ML (<15.0); SODIUM LEVEL 140 MEQ/L (136-145); TOTAL PROTEIN 6.7 GM/DL (6.4-8.2)
[2018-04-26 18:46] LABS: ERYTHROCYTE SEDIMENTATION RATE 12 mm/hr (0-30)
[2018-04-29 00:06] LABS: ANA (HEP2) Positive (.)
== END ==
LOC: M SFHCCLAY 13:13
DX: M79.7 Fibromyalgia (principal)

== ENCOUNTER → 2018-08-15 | Outpatient (REF) | payer OTHER ==
[2018-08-18 00:06] LABS: CYCLIC CITRULLINATED PEPTIDE 4 units (0-19)
== END ==
LOC: M SFHCPLAZ 13:55
DX: R76.8 Other specified abnormal immunological findings in serum (principal)
CPT/HCPCS: 36415

== ENCOUNTER → 2018-08-29 | Outpatient (CLI) | payer OTHER | LOC: M RAD 10:25 | DX: M51.34 Other intervertebral disc degeneration, thoracic region (principal); M25.78 Osteophyte, vertebrae; M54.9 Dorsalgia, unspecified | CPT/HCPCS: 72070 ==

== ENCOUNTER → 2018-10-23 | Outpatient (REF) | payer OTHER ==
[~2018-10-23] MED LIST changes: +ALPR0.25 PO; +ATEN25TA PO; +BUSP10TA PO; +CYCL10TA PO; +EFFE150C2 PO; +ENAL5TAB PO; +GABA-845 PO; +HYDRO50TAB GT; +LEVA750T7 PO; -LIDOCAINE 2% MDV 20 ML VIAL As Ordered; +MULT1TAB10 PO; +NITR4TASL SL; +NORCOTAB PO; +PRIL20CA9 PO; -PROPOFOL 200 MG/20 ML VIAL As Ordered; +SIMV20TA2 PO; +VIIB40TA PO; +VIST50CA PO; +WELLTAB40 PO; +XANA0.25 PO
[2018-10-23 17:13] LABS: BASO # 0.1 10^3/uL (0.0-0.2); BASO % 0.8 % (0.0-1.0); EOS # 0.2 10^3/uL (0.0-0.50); EOS % 2.7 % (0.0-3.0); HEMATOCRIT 39.4 % (36.0-47.0); HEMOGLOBIN 12.5 g/dl (12.0-15.5); LYMPH # 2.3 10^3/uL (1.5-4.5); LYMPH % 26.5 % (24.0-44.0); MEAN CORPUSCULAR HEMOGLOBIN 26.7 pg (27.0-33.0); MEAN CORPUSCULAR HGB CONC 31.7 g/dl (32.0-36.5); MEAN CORPUSCULAR VOLUME 84.2 fl (80.0-96.0); MONO # 0.4 10^3/uL (0.0-0.8); MONO % 4.5 % (0.0-5.0); NEUTROPHILS # 5.7 10^3/uL (1.8-7.7); PLATELET COUNT, AUTOMATED 265 10^3/uL (150-450); RED BLOOD COUNT 4.68 10^6/uL (4.00-5.40); WHITE BLOOD COUNT 8.8 10^3/uL (4.0-10.0)
[2018-10-23 17:28] LABS: ALBUMIN 3.9 GM/DL (3.2-5.2); ALT/SGPT 17 U/L (12-78); BILIRUBIN,TOTAL 0.2 MG/DL (0.2-1.0); BLOOD UREA NITROGEN 8 MG/DL (7-18); CALCIUM LEVEL 9.4 MG/DL (8.5-10.1); CARBON DIOXIDE LEVEL 28 MEQ/L (21-32); CHLORIDE LEVEL 105 MEQ/L (98-107); FREE T4 0.97 NG/DL (0.76-1.46); GLOMERULAR FILTRATION RATE > 60.0 (>51); GLUCOSE, FASTING 91 MG/DL (70-100); POTASSIUM SERUM 4.3 MEQ/L (3.5-5.1); SODIUM LEVEL 140 MEQ/L (136-145); TOTAL PROTEIN 7.2 GM/DL (6.4-8.2)
[2018-10-23 17:29] LABS: FOLLICLE STIMULATING HORMONE 65.5 mIU/mL; LUTEINIZING HORMONE 40.7 mIU/mL
== END ==
LOC: M SFHCCLAY 12:06
PROVIDERS: ATTEND Family Medicine
DX: F32.9 Major depressive disorder, single episode, unspecified (principal)

== ENCOUNTER 2020-08-08 17:49 | Emergency (ER) | payer MEDICAID, OTHER, SELFPAY ==
[~2020-08-08] VITALS: Ht 170.2 cm; Wt 73.6 kg
[~2020-08-08 17:49] MED LIST changes: +CYCL-707 PO; -CYCL10TA PO; +ENAL5TA PO; -ENAL5TAB PO; +HYDR-3715 PO; +HYDR1TAB33 GT; -HYDRO50TAB GT; -NORCOTAB PO; -SIMV20TA2 PO; +SIMV20TA22 PO
--- NOTE | 2020-08-08 19:08 | REP ---
INDICATION: pain after fall COMPARISON: 03/28/2015 TECHNIQUE: AP, lateral, bilateral oblique views left foot. FINDINGS: Prior surgical intervention at the 5th metatarsal bone remains stable. Generalized age-related changes are appreciated. No acute fracture or dislocation. Lateral view demonstrates small calcaneal heel spur. IMPRESSION: No acute fracture or dislocation. <Electronically signed by Chris Ackerman > 08/08/20 5424
--- NOTE | 2020-08-08 19:11 | REP ---
INDICATION: pain after fall COMPARISON: None TECHNIQUE: AP, lateral, bilateral oblique views. FINDINGS: Small avulsion fracture of the distal fibula with overlying soft tissue swelling is suspected and should be correlated with physical examination, mechanism of injury and point of tenderness. IMPRESSION: Possible small avulsion fracture at the distal fibula with overlying soft tissue swelling. <Electronically signed by Chris Ackerman > 08/08/20 8421
[2020-08-08] MEDS ORDERED: KETOROLAC 60MG 2ML VIAL IM ONE (19:45)
[2020-08-08 20:31] VITALS: BP 138/68
== END 2020-08-08 20:00 | disposition home or self-care (01) ==
LOC: M ED 17:49
DX: S82.832A Other fracture of upper and lower end of left fibula, initial encounter for closed fracture (principal); X50.9XXA Other and unspecified overexertion or strenuous movements or postures, initial encounter; Y92.018 Other place in single-family (private) house as the place of occurrence of the external cause; I10 Essential (primary) hypertension; J44.9 Chronic obstructive pulmonary disease, unspecified; E78.5 Hyperlipidemia, unspecified; F33.9 Major depressive disorder, recurrent, unspecified; F41.9 Anxiety disorder, unspecified; M79.7 Fibromyalgia; M32.9 Systemic lupus erythematosus, unspecified; K21.9 Gastro-esophageal reflux disease without esophagitis; Z88.1 Allergy status to other antibiotic agents; Z88.5 Allergy status to narcotic agent; Z88.8 Allergy status to other drugs, medicaments and biological substances; F17.210 Nicotine dependence, cigarettes, uncomplicated
CPT/HCPCS: 73610; 73630; 96372; 99284; J1885

== ENCOUNTER 2020-12-14 20:28 | Day surgery (SDC) | payer MEDICAID, OTHER ==
[~2020-12-14] VITALS: Ht 170.2 cm; Wt 75.5 kg
[2020-12-14] MEDS ORDERED: IBUP80TA PO (20:39)
[2020-12-14 21:40] LABS: BASO # 0.1 10^3/uL (0.0-0.2); BASO % 0.6 % (0.0-1.0); EOS # 0.3 10^3/uL (0.0-0.5); EOS % 2.3 % (0.0-3.0); HEMATOCRIT 37.9 % (36.0-47.0); HEMOGLOBIN 12.1 g/dl (12.0-15.5); LYMPH # 2.8 10^3/uL (1.5-5.0); LYMPH % 25.7 % (24.0-44.0); MEAN CORPUSCULAR HEMOGLOBIN 27.8 pg (27.0-33.0); MEAN CORPUSCULAR HGB CONC 31.9 g/dl (32.0-36.5); MEAN CORPUSCULAR VOLUME 87.1 fl (80.0-96.0); MONO # 0.7 10^3/uL (0.0-0.8); NEUTROPHILS # 7.1 10^3/uL (1.5-8.5); PLATELET COUNT, AUTOMATED 228 10^3/uL (150-450); RED BLOOD COUNT 4.35 10^6/uL (4.00-5.40); WHITE BLOOD COUNT 10.8 10^3/uL (4.0-10.0)
[2020-12-14 21:53] LABS: ALBUMIN 3.8 GM/DL (3.2-5.2); ALT/SGPT 16 U/L (12-78); BILIRUBIN,DIRECT < 0.1 MG/DL (0.0-0.2); BILIRUBIN,TOTAL 0.3 MG/DL (0.2-1.0); LIPASE 158 U/L (73-393); TOTAL PROTEIN 7.1 GM/DL (6.4-8.2)
[2020-12-14] MEDS ORDERED: KETOROLAC 30 MG/ML 1ML VIAL IV ONE (22:00)
[2020-12-14] MEDS ORDERED: ONDANSETRON 4MG/2ML VIAL IV ONE (22:00)
[2020-12-14] MEDS ORDERED: NS 1,000 ML IV ONE (22:00)
[2020-12-14] MEDS ORDERED: ISOVUE-370 76% 100ML VIAL As Ordered ONE (22:13)
[2020-12-14] MEDS ORDERED: PIPERACILLIN/TAZOBACTAM SOD 3.375 GM in D5W MINI-BAG PLUS 50 ML IV ONE (22:55)
[2020-12-14] MEDS ORDERED: MORPHINE 4 MG/ML 1ML VIAL/SYRINGE (J2270) IV ONE (22:55)
[2020-12-14] MEDS ORDERED: MORPHINE 2 MG/ML 1ML VIAL (J2270) IV PRN (23:40)
[2020-12-14] MEDS ORDERED: ONDANSETRON 4MG/2ML VIAL IV PRN (23:40)
[2020-12-15] MEDS: LR 1,000 ML IV SCH ×2 (00:22→10:49)
[2020-12-15] MEDS ORDERED: LIDOCAINE 2% 100MG/5ML SDV (FOR ANES.) As Ordered ONE (01:12)
[2020-12-15] MEDS ORDERED: ROCURONIUM BROMIDE 50 MG/5 ML VIAL As Ordered ONE (01:12)
[2020-12-15] MEDS ORDERED: MIDAZOLAM INJ 2MG/2ML VIAL (J2250 PER 1MG) As Ordered ONE (01:12)
[2020-12-15] MEDS ORDERED: propofoL 200 MG/20 ML VIAL As Ordered ONE (01:12)
[2020-12-15] MEDS ORDERED: fentaNYL 100 MCG/2 ML INJECTION (J3010) As Ordered ONE ×2 (01:12→03:06)
[2020-12-15] MEDS ORDERED: SCOPOLAMINE 1MG TRANSDERMAL PATCH TOP ONE (02:25)
[2020-12-15] MEDS ORDERED: dexameTHASONE 4 MG/ML 1ML VIAL (J1100 PER 1MG) As Ordered ONE (02:34)
[2020-12-15] MEDS ORDERED: ACETAMINOPHEN 1000MG 100ML IV BTL (OFIRMEV) (J0131 PER 10MG) As Ordered ONE (02:38)
[2020-12-15] MEDS ORDERED: PHENYLephrine 500MCG 5ML (100MCG/ML) SYRINGE As Ordered ONE ×2 (02:38→02:59)
[2020-12-15] MEDS ORDERED: ePHEDrine SULFATE 25 MG/5 ML(5MG/ML) SYRINGE As Ordered ONE (02:44)
[2020-12-15] MEDS ORDERED: BUPIVACAINE HCL 0.25% 30ML VIAL As Ordered ONE (02:47)
[2020-12-15] MEDS ORDERED: ONDANSETRON 4MG/2ML VIAL As Ordered ONE (02:51)
[2020-12-15] MEDS ORDERED: NORCO, ANEXSIA 5/325MG TABLET (HYDROcodone/ACETAMINOPHEN) PO PRN (04:30)
[2020-12-15] MEDS ORDERED: KETOROLAC 30 MG/ML 1ML VIAL IV PRN (04:30)
[2020-12-15] MEDS ORDERED: ACETAMINOPHEN TAB 650MG DOSE (2X325MG) PO PRN (04:30)
[2020-12-15] MEDS ORDERED: HYDROMORPHONE HCL 0.5 MG/ 0.5 ML SYRINGE (J1170 PER 1) IV PRN (04:35)
[2020-12-15] MEDS ORDERED: LR 1,000 ML IV SCH (04:35)
[2020-12-15] MEDS ORDERED: ONDANSETRON 4MG/2ML VIAL IV PRN (04:35)
[2020-12-15] MEDS ORDERED: fentaNYL 100 MCG/2 ML INJECTION (J3010) IV PRN (04:35)
[2020-12-15 05:00] VITALS: BP 137/80
[2020-12-15 05:30] VITALS: BP 134/79
[2020-12-15 06:30] VITALS: BP 134/80
[2020-12-15] MEDS ORDERED: PIPERACILLIN/TAZOBACTAM SOD 3.375 GM in D5W MINI-BAG PLUS 50 ML IV ONE (06:30)
[2020-12-15 07:30] VITALS: BP 111/56
--- NOTE | 2020-12-15 09:07 | REP ---
INDICATION: RLQ abd pain, vomiting. The patient reports hysterectomy, cholecystectomy, and gastric bypass surgery along with incisional hernia surgery. Repeat dictation. Preliminary report is provided at the time of the exam by dhruv CHAU. COMPARISON: Comparison CT study February 15, 2018.. TECHNIQUE: Helical scanning was acquired and 4 mm axial images are re-formatted. Coronal and sagittal MPR images were generated and reviewed. The contrast enhancement dose is 100 mL of intravenous Isovue 370. 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 The lung bases are essentially clear on axial CT images. The liver and the spleen are normal in size homogeneous in texture. No abnormality is noted in the pancreas. The gallbladder surgically absent. There is an accessory splenule in the left upper quadrant. Normal adrenal glands are seen. The kidneys enhance symmetrically and are morphologically intact. No retroperitoneal mass or adenopathy is seen. Postoperative changes are seen in the stomach post bypass. Urinary bladder is intact. There is a septated cystic mass lesion in the cul-de-sac originating the left or Suzan. This measures 7.9 cm in greatest diameter. There are right ovarian cysts as well with 3.9 cm aggregate dimension. The prior CT study from 2018 showed bilateral ovarian cystic lesions. The left-sided cystic lesion has enlarged. The uterus is surgically absent. Today's CT study demonstrates mural thickening, fluid distention, and adjacent inflammatory change and fluid in the appendix consistent with acute appendicitis. There is no evidence of abscess or free air. No abdominal wall defect or bony destructive lesion is seen. IMPRESSION: 1. CT findings consistent with acute appendicitis. No abscess or free air. 2. Bilateral cystic ovarian masses left larger than right, 7.9 cm. Further evaluation with pelvic sonography and gynecologic evaluation should be considered. <Electronically signed by Justice Chadwick > 12/15/20 09
[2020-12-15 13:47] VITALS: BP 123/73
--- NOTE | 2020-12-15 19:18 | RO ---
OPERATIVE NOTE DATE OF OPERATION: 12/15/2020 PREOPERATIVE DIAGNOSIS: Acute appendicitis. POSTOPERATIVE DIAGNOSIS: Acute appendicitis. PROCEDURE PERFORMED: Laparoscopic appendectomy with resection of appendix with portion of cecum. SURGEON: Rodriguez Martinez MD ANESTHESIA: General. INDICATION FOR PROCEDURE: The patient is a 55-year-old woman who presented to the emergency department with a roughly one day history of abdominal pain, which became localized to the right lower quadrant. She was found to have moderate to marked tenderness to the right lower quadrant. Her white blood cell count was normal, but a CT scan showed inflammation involving the appendix. She is now for a laparoscopic appendectomy. OPERATIVE PROCEDURE: The patient was brought to the operating room and placed on the table in a supine position. She was placed under general endotracheal anesthesia. The patient's abdomen was prepped and draped in a sterile fashion. 25% Marcaine was infiltrated at each of the trocar sites as needed. I elected to attempt insufflation in the left upper quadrant. A short incision was made and the Veress needle was inserted. After a positive hanging drop test, insufflation was begun, but it was clear that the insufflation was going into the abdominal wall. Therefore the insufflation was stopped and the needle removed. I elected to move to the supraumbilical midline for placement of the Veress needle. A longitudinal incision was made and deepened to the fascia. The Veress needle was inserted; and after positive hanging drop test, the abdomen was insufflated with carbon dioxide without. Once the abdomen was filled, the Veress needle was removed and an incision was made in the fascia along the midline and a 12 mm port was placed without difficulty. The laparoscope was placed. Initial examination showed no evidence of significant inflammation in the small or large bowel. The liver appeared normal. 2 mm ports were placed in the left lower quadrant. The patient was rolled to the left and tilted to a Trendelenburg position. The cecum was identified in the right mid abdomen. The terminal ileum was elevated and the inflamed appendix was identified adherent to the retroperitoneum. With some blunt dissection with the graspers, the distal portion of the appendix was freed such that it could be grasped with a grasper to provide traction. The appendix was quite inflamed and adherent to the retroperitoneum just posterior to the cecum. It was necessary to use the hook cautery to dissect through the periappendiceal fibrofatty tissues. This was accomplished without significant difficulty. The mesoappendix was also quite inflamed and this was also divided with care to ensure complete cauterization of the appendicular vessels. The appendix overall appeared to be fairly short and stubby. As dissection worked towards the base of the appendix, it was clear that the base was somewhat indistinct and widened and was not a sharp demarcation at the junction with the cecum. Dissection was conducted to free the portion of the cecum and a stapler was used to transect the cecum and remove this with the appendix. Three loads of the stapler were used to complete the transection. The appendix was placed in an Endopouch. The right lower quadrant was then irrigated and inspected for hemostasis, which was found to be excellent. I then turned my attention briefly to the pelvis. Her CT scan had suggested the presence of a large approximately 7.5 cm cyst in the left adnexa. Inspection showed a right ovary and tube that contained perhaps two small thin walled fluid filled cysts. On the left hand side, there was a large cystic appearing mass. The wall was white and appeared significantly thicker. There was no obvious nodularity or metastatic deposits to suggest cancer. It was mobile relative to the retroperitoneum and appeared to be based off the usual vascular pedicle of the ovary. A photograph was taken for her record. The patient was then returned to a flat position. The abdomen was deflated and the trocars were removed. The appendix was recovered through the supraumbilical site, which necessitated extending the incision slightly. The fascia was then closed with interrupted simple sutures of 2-0 Vicryl. The skin incisions were all closed with buried 4-0 Vicryl and Steri-Strips. Some additional local anesthesia was injected, particularly at the supraumbilical site. Light dressings were applied. She was awaken then in the operating room and extubated and moved to the recovery room in stable condition.
--- NOTE | 2020-12-17 17:16 | IPN ---
PROGRESS NOTE DATE: 12/15/2020 HISTORY: Patient is a 55-year-old woman who presented to the emergency department on December 14 with a history of abdominal pain becoming localized in the right lower quadrant. She was admitted just before midnight on December 14 with a diagnosis confirmed by CT scan of acute appendicitis. She was taken to the operating room and had a laparoscopic appendectomy, which was completed at about 4 o'clock in the morning of December 15. She has been doing well since surgery. Vital signs show that she has been afebrile. Her pulse is in the 70s to 90s, and her blood pressure is good. Intake and output show that she has taken oral intake well with good urine output so far today. PHYSICAL EXAMINATION: Patient is lying quietly in the hospital bed. She denies any significant discomfort but admits to some soreness. She has had no nausea or vomiting. Heart exam shows a regular rhythm. The abdomen is flat. Her dressings are clean and dry. She has bowel sounds present and no undue tenderness on palpation. IMPRESSION: Patient is doing well, now about 8 hours postoperative from her laparoscopic appendectomy for acute appendicitis. She has been using any pain medication sparingly and believes she is ready to go home. PLAN: Patient will be discharged home. She was counseled that she should avoid any strenuous physical activity for about 2 weeks. Light activity is fine. She can shower 24 hours after the surgery but should leave her Steri-Strips to come off on their own. She was counseled to try [id number] pain medications as needed, and she indicated that this, she thinks, will be fine for her based on her past experience. She indicates that she is planning on traveling to [place] via [email or web address] within the next few days to celebrate [facility] with her family. I advised her there is no absolute reason she could not go on a trip as long as she is comfortable enough to travel. She should followup in my office on her return just for a routine visit. If she develops any new problems, she should contact my office as needed.
== END 2020-12-15 14:09 | disposition home or self-care (01) ==
LOC: M ED 20:28 → M SDC 23:38 → M MS5PR 12-15 05:05 → M SDC 12-15 14:09
PROVIDERS: ATTEND Surgery
DX: K35.890 Other acute appendicitis without perforation or gangrene (principal); I10 Essential (primary) hypertension; E78.49 Other hyperlipidemia; J44.9 Chronic obstructive pulmonary disease, unspecified; K21.9 Gastro-esophageal reflux disease without esophagitis; Z98.84 Bariatric surgery status; Z88.1 Allergy status to other antibiotic agents; Z88.8 Allergy status to other drugs, medicaments and biological substances; Z88.5 Allergy status to narcotic agent; M32.9 Systemic lupus erythematosus, unspecified; M79.7 Fibromyalgia; F17.218 Nicotine dependence, cigarettes, with other nicotine-induced disorders; I25.2 Old myocardial infarction
CPT/HCPCS: 36415; 44970; 80047; 80076; 81001; 83690; 85025; 88304; 96361; 96365; 96366; 96375; 96376; 99284; J0131; J1100; J1885; J2250; J2270; J2370; J2405; J2543; J3010; Q9967; U0002

== ENCOUNTER → 2021-01-08 | Outpatient (REF) | payer OTHER ==
[~2021-01-08] MED LIST changes: +GABA-283 PO; -GABA-845 PO; +IBUP80TA PO
[2021-01-08 15:45] LABS: CA 125 24.7 U/ML (<30.2)
[2021-01-12 07:33] LABS: CA19-9 TUMOR MARKER,CARBOHYDRA 10.9 U/ML (<35.0)
== END ==
LOC: M PLALAB 10:23
PROVIDERS: ATTEND Nurse Practitioner Women's Health
DX: N83.8 Other noninflammatory disorders of ovary, fallopian tube and broad ligament (principal); Z80.41 Family history of malignant neoplasm of ovary

== ENCOUNTER → 2021-01-21 | Outpatient (CLI) | payer OTHER ==
[~2021-01-21] MED LIST changes: -GABA-283 PO; +GABA-845 PO
--- NOTE | 2021-01-22 06:20 | REP ---
INDICATION: M25.551 RIGHT HIP PAIN COMPARISON: None. TECHNIQUE: AP and frog-lateral views of the right hip FINDINGS: Mild/moderate degenerative changes include increased sclerosis to the acetabulum with minimal joint space narrowing. No further overt osteoarthritic or significant degenerative changes are appreciated. No evidence for acute or healed injury. Surrounding soft tissues are normal. IMPRESSION: Mild/moderate degenerative change. <Electronically signed by Chris Ackerman > 01/22/21 0617
== END ==
LOC: M CLY 15:07
PROVIDERS: ATTEND Nurse Practitioner Family
DX: M25.551 Pain in right hip (principal)

== ENCOUNTER → 2021-02-27 | Outpatient (CLI) | payer OTHER ==
[~2021-02-27] MED LIST changes: +GABA-283 PO; -GABA-845 PO
[2021-02-27 12:57] LABS: BLOOD UREA NITROGEN 9 MG/DL (7-18); CREATININE FOR GFR 0.61 MG/DL (0.55-1.30); GLOMERULAR FILTRATION RATE > 60.0 (>51)
== END ==
LOC: M LAB 10:36
PROVIDERS: ATTEND Physician Assistant Surgical
DX: M51.26 Other intervertebral disc displacement, lumbar region (principal); M54.16 Radiculopathy, lumbar region

== ENCOUNTER → 2021-02-27 | Outpatient (CLI) | payer OTHER ==
[2021-02-27 12:14] LABS: BASO # 0.1 10^3/uL (0.0-0.2); EOS # 0.4 10^3/uL (0.0-0.5); HEMATOCRIT 36.7 % (36.0-47.0); HEMOGLOBIN 11.5 g/dl (12.0-15.5); LYMPH # 2.1 10^3/uL (1.5-5.0); LYMPH % 34.4 % (24.0-44.0); MEAN CORPUSCULAR HEMOGLOBIN 26.7 pg (27.0-33.0); MEAN CORPUSCULAR HGB CONC 31.3 g/dl (32.0-36.5); MEAN CORPUSCULAR VOLUME 85.2 fl (80.0-96.0); MONO # 0.4 10^3/uL (0.0-0.8); MONO % 5.9 % (2.0-8.0); NEUTROPHILS # 3.1 10^3/uL (1.5-8.5); NEUTROPHILS % 51.2 % (36.0-66.0); PLATELET COUNT, AUTOMATED 228 10^3/uL (150-450); RED BLOOD COUNT 4.31 10^6/uL (4.00-5.40); WHITE BLOOD COUNT 6.1 10^3/uL (4.0-10.0)
[2021-02-27 13:01] LABS: PERCENT SATURATION 11.4 % (13.2-45.0)
== END ==
LOC: M LAB 10:32
PROVIDERS: ATTEND Nurse Practitioner Family
DX: F50.89 Other specified eating disorder (principal)

== ENCOUNTER → 2021-04-24 | Outpatient (CLI) | payer OTHER ==
[~2021-04-24] MED LIST changes: +DICL50TA2 PO; +LISI-898 PO; +NITR0.4S14 SL; +ROSU20TA5 PO; +[UNRECOGNIZED DRUG - CODE] PO
--- NOTE | 2021-04-24 11:30 | ECGEPIP ---
[facility] Test Date: 2021-04-24 Pat Name: SHAW MCCLELLAN Department: Room: - Gender: Female [facility] Medicine: DARCY : 1965 Requested By: JIM Gasca Order Number: [id number] Reading MD: Lupe Cortez Measurements Intervals Heber Rate: 72 P: 64 WV: 152 QRS: 25 QRSD: 92 T: 51 QT: 386 QTc: 422 Interpretive Statements Normal sinus rhythm Low voltage QRS PRECODIAL LEADS NEW RATE FASTER C/W 06/26/16 Electronically Signed on 04-24-2021 11:30:27 EDT by Lupe Cortez
== END ==
LOC: M EKG 10:16
PROVIDERS: ATTEND Anesthesiology
DX: R07.89 Other chest pain (principal)

== ENCOUNTER → 2021-04-24 | Outpatient (CLI) | payer OTHER | LOC: M LABSMTC 09:34 | PROVIDERS: ATTEND Anesthesiology | DX: Z11.52 Encounter for screening for COVID-19 (principal) ==

== ENCOUNTER → 2021-05-13 | Outpatient (CLI) | payer OTHER ==
[2021-05-13 11:41] LABS: BASO # 0.1 10^3/uL (0.0-0.2); BASO % 0.8 % (0.0-1.0); EOS # 0.4 10^3/uL (0.0-0.5); EOS % 5.7 % (0.0-3.0); HEMOGLOBIN 13.6 g/dl (12.0-15.5); LYMPH # 2.3 10^3/uL (1.5-5.0); MEAN CORPUSCULAR HEMOGLOBIN 28.4 pg (27.0-33.0); MEAN CORPUSCULAR HGB CONC 31.6 g/dl (32.0-36.5); MEAN CORPUSCULAR VOLUME 89.8 fl (80.0-96.0); MONO # 0.4 10^3/uL (0.0-0.8); MONO % 4.9 % (2.0-8.0); NEUTROPHILS # 4.3 10^3/uL (1.5-8.5); NEUTROPHILS % 57.3 % (36.0-66.0); PLATELET COUNT, AUTOMATED 252 10^3/uL (150-450); RED BLOOD COUNT 4.79 10^6/uL (4.00-5.40); WHITE BLOOD COUNT 7.6 10^3/uL (4.0-10.0)
[2021-05-13 12:10] LABS: ALBUMIN 3.5 GM/DL (3.2-5.2); ALT/SGPT 24 U/L (12-78); BILIRUBIN,TOTAL 0.5 MG/DL (0.2-1.0); BLOOD UREA NITROGEN 6 MG/DL (7-18); CALCIUM LEVEL 9.5 MG/DL (8.5-10.1); CARBON DIOXIDE LEVEL 29 MEQ/L (21-32); CHLORIDE LEVEL 108 MEQ/L (98-107); CHOLESTEROL LEVEL 145 MG/DL (<200); CHOLESTEROL RISK RATIO 3.625 (<5); CREATININE FOR GFR 0.67 MG/DL (0.55-1.30); GLOMERULAR FILTRATION RATE > 60.0 (>51); GLUCOSE, FASTING 81 MG/DL (70-100); HDL CHOLESTEROL 40 MG/DL (>40); LDL CHOLESTEROL 84 MG/DL (<100); NON-HDL-C 105 MG/DL; POTASSIUM SERUM 4.5 MEQ/L (3.5-5.1); SODIUM LEVEL 139 MEQ/L (136-145); TOTAL PROTEIN 6.8 GM/DL (6.4-8.2); TRIGLYCERIDES LEVEL 107 MG/DL (<150)
== END ==
LOC: M LAB 10:34
PROVIDERS: ATTEND Physician Assistant
DX: I25.118 Atherosclerotic heart disease of native coronary artery with other forms of angina pectoris (principal); I10 Essential (primary) hypertension; E78.00 Pure hypercholesterolemia, unspecified

== ENCOUNTER → 2021-05-29 | Outpatient (CLI) | payer OTHER ==
[2021-05-29 12:05] LABS: BASO # 0.1 10^3/uL (0.0-0.2); BASO % 0.6 % (0.0-1.0); EOS # 0.5 10^3/uL (0.0-0.5); EOS % 5.4 % (0.0-3.0); HEMATOCRIT 41.3 % (36.0-47.0); HEMOGLOBIN 13.5 g/dl (12.0-15.5); LYMPH # 2.3 10^3/uL (1.5-5.0); LYMPH % 25.8 % (24.0-44.0); MEAN CORPUSCULAR HEMOGLOBIN 29.7 pg (27.0-33.0); MEAN CORPUSCULAR HGB CONC 32.7 g/dl (32.0-36.5); MEAN CORPUSCULAR VOLUME 90.8 fl (80.0-96.0); MONO # 0.4 10^3/uL (0.0-0.8); MONO % 4.7 % (2.0-8.0); NEUTROPHILS # 5.5 10^3/uL (1.5-8.5); PLATELET COUNT, AUTOMATED 207 10^3/uL (150-450); RED BLOOD COUNT 4.55 10^6/uL (4.00-5.40); WHITE BLOOD COUNT 8.7 10^3/uL (4.0-10.0)
[2021-05-29 12:47] LABS: BLOOD UREA NITROGEN 8 MG/DL (7-18); CALCIUM LEVEL 9.6 MG/DL (8.5-10.1); CARBON DIOXIDE LEVEL 31 mmol/L (20-29); CHLORIDE LEVEL 109 MEQ/L (98-107); CREATININE FOR GFR 0.55 MG/DL (0.55-1.30); GLOMERULAR FILTRATION RATE > 60.0 (>51); GLUCOSE, FASTING 85 MG/DL (70-100); POTASSIUM SERUM 4.1 MEQ/L (3.5-5.1); SODIUM LEVEL 142 MEQ/L (136-145)
== END ==
LOC: M LAB 11:37
PROVIDERS: ATTEND Internal Medicine Cardiovascular Disease
DX: R07.9 Chest pain, unspecified (principal); R06.09 Other forms of dyspnea; I25.10 Atherosclerotic heart disease of native coronary artery without angina pectoris

== ENCOUNTER → 2021-06-08 | Outpatient (CLI) | payer OTHER | LOC: M LABSMTC 09:36 | PROVIDERS: ATTEND Internal Medicine Cardiovascular Disease | DX: Z11.52 Encounter for screening for COVID-19 (principal) ==

== ENCOUNTER → 2021-07-14 | Outpatient (CLI) | payer OTHER ==
[~2021-07-14] MED LIST changes: +ACET1TAB55 PO; +FERR325T3 PO; +GABA-282 PO; +VITMTA PO; +foot cream
--- NOTE | 2021-07-14 14:27 | REP ---
INDICATION: RT HIP PAIN injury December 2019 in March 2020, pain COMPARISON: Radiographs 01/21/2021. pelvic ultrasound 01/14/2021. TECHNIQUE: Coronal T1, STIR through the pelvis, axial, coronal, sagittal T2 fat sat right hip. FINDINGS: There is a subcentimeter well-defined cyst in the right femoral head laterally. This may represent a synovial herniation pit. There is no bone marrow edema or occult fracture. There is no evidence of avascular necrosis. There are tears of the superior, anterior and posterior labrum. There is no paralabral cyst. Surrounding soft tissue structures demonstrate no abnormal signal. There is no joint effusion. Large complex septated ovarian cysts are again noted in the visualized portions of the pelvis. IMPRESSION: There are tears of the superior, anterior and posterior labrum. No occult fracture. A subcentimeter well-defined cyst in the subcortical right femoral head laterally may represent a synovial herniation pit. Large complex septated ovarian cysts are again seen, as visualized on the prior pelvic ultrasound 01/14/2021. <Electronically signed by Wolf Mercado > 07/14/21 1422
== END ==
LOC: M PLAIMG 13:18
PROVIDERS: ATTEND Nurse Practitioner Family
DX: S73.191A Other sprain of right hip, initial encounter (principal); Y92.9 Unspecified place or not applicable; Y93.9 Activity, unspecified; Y99.9 Unspecified external cause status; N83.299 Other ovarian cyst, unspecified side

== ENCOUNTER → 2021-07-15 | Outpatient (REF) | payer OTHER ==
[2021-07-15 15:54] LABS: MAGNESIUM LEVEL 1.8 MG/DL (1.8-2.4); PERCENT SATURATION 29.8 % (13.2-45.0)
[2021-07-15 16:03] LABS: WHITE BLOOD COUNT 10.1 10^3/uL (4.0-10.0)
[2021-07-15 16:04] LABS: BASO # 0.1 10^3/uL (0.0-0.2); BASO % 0.7 % (0.0-1.0); EOS # 0.3 10^3/uL (0.0-0.5); EOS % 3.3 % (0.0-3.0); HEMATOCRIT 43.2 % (36.0-47.0); HEMOGLOBIN 14.4 g/dl (12.0-15.5); LYMPH % 20.2 % (24.0-44.0); MEAN CORPUSCULAR HEMOGLOBIN 31.4 pg (27.0-33.0); MEAN CORPUSCULAR HGB CONC 33.3 g/dl (32.0-36.5); MEAN CORPUSCULAR VOLUME 94.3 fl (80.0-96.0); MONO # 0.6 10^3/uL (0.0-0.8); MONO % 5.7 % (2.0-8.0); NEUTROPHILS % 69.6 % (36.0-66.0); PLATELET COUNT, AUTOMATED 207 10^3/uL (150-450); RED BLOOD COUNT 4.58 10^6/uL (4.00-5.40)
== END ==
LOC: M SFHCCLAY 10:23
PROVIDERS: ATTEND Nurse Practitioner Family
DX: F50.89 Other specified eating disorder (principal); T14.8XXA Other injury of unspecified body region, initial encounter

== ENCOUNTER → 2021-07-27 | Outpatient (CLI) | payer OTHER | LOC: M LABSMTC 10:17 | PROVIDERS: ATTEND Anesthesiology | DX: Z01.818 Encounter for other preprocedural examination (principal); Z11.52 Encounter for screening for COVID-19 ==

== ENCOUNTER 2021-07-31 07:01 | Day surgery (SDC) | payer OTHER ==
[~2021-07-31] VITALS: Ht 170.2 cm; Wt 70.5 kg
[~2021-07-31 07:01] MED LIST changes: +LR 1,000 ML IV ONE
--- OUTSIDE RECORDS SUMMARY | 2021-07-31 07:05 | CCD | Continuity of Care Document ---
Author Author Lisa EASTMAN MD Organization Unknown Address [address] [place] [address] [address] [place] [address] Phone [phone] Care Team Providers Care Clinical Consultant Name Role Phone Chavez Vale MD AUTM Patty JaraP-C AUTM [phone] [facility] [place] AUTM [phone] Direct, [facility] AUTM Unavailable 2-7 AUTM [phone] Problems Description No Information Available Social History Type Date Description Comments Sex Unknown Allergies, Adverse Reactions, Alerts Description No Information Available Medications Description No Information Available Immunizations Description No Information Available Vital Signs Description No Information Available Results Test Acquired Date Facility Test Result H/L Range Note Coronavirus 2019 Nasopharygeal 06/08/2021 [facility] [phone] Coronavirus 2019 Nasopharygeal ASSAY INFORMATIO <SEE N OTE> 1 CBC With Differential 05/29/2021 [facility] [phone] White Blood Count 8.7 10 Normal 4.0-10.0 Red Blood Count 4.55 10 Normal 4.00-5.40 Hemoglobin 13.5 g/dL Normal 12.0-15.5 Hematocrit 41.3 % Normal 36.0-47.0 Mean Corpuscular Volume 90.8 fl Normal 80.0-96.0 Mean Corpuscular Hemoglobin 29.7 pg Normal 27.0-33.0 Mean Corpuscular HGB Conc 32.7 g/dL Normal 32.0-36.5 Red Cell Distribution Width 18.2 % High 11.5-14.5 Platelet Count, Automated 207 10 Normal 150-450 Neutrophils % 63.0 % Normal 36.0-66.0 Lymph % 25.8 % Normal 24.0-44.0 [place] % 4.7 % Normal 2.0-8.0 Eos % 5.4 % High 0.0-3.0 Baso % 0.6 % Normal 0.0-1.0 Immature Granulocyte % 0.5 % Normal 0-3.0 Nucleated Red Blood Cell % 0.0 % Normal 0-0 Neutrophils # 5.5 10 Normal 1.5-8.5 Lymph # 2.3 10 Normal 1.5-5.0 [place] # 0.4 10 Normal 0.0-0.8 Eos # 0.5 10 Normal 0.0-0.5 Baso # 0.1 10 Normal 0.0-0.2 Basic Metabolic Profile 05/29/2021 [facility] [phone] Glucose, Fasting 85 mg/dL Normal 70-100 Blood Urea Nitrogen 8 mg/dL Normal 7-18 Creatinine For GFR 0.55 mg/dL Normal 0.55-1.30 Glomerular Filtration Rate > 60.0 Normal >51 2 Sodium Level 142 mEq/L Normal 136-145 Potassium Serum 4.1 mEq/L Normal 3.5-5.1 Chloride Level 109 mEq/L High 98-107 Carbon Dioxide Level 31 mmol/L High 20-29 Anion Gap 2 mEq/L Low 8-16 Calcium Level 9.6 mg/dL Normal 8.5-10.1 1 ASSAY INFORMATION: Real Time RT-PCR or TMA. Both RT-PCR and TMA are nucleic acid amplification tests (NAAT) which are molecular testing modalities and recommended by the CDC for passenger travel. Testing and International Air Travel, cdc.gov/coronavirus/2019-ncov/travelers/serdawu-ltm-ccvvpo.html 11/06/2020 NOTE: The COVID-19 assay is under Emergency Use Authorization (EUA) by the U.S. Food and Drug Administration. [facility] are designated as high complexity laboratories by the Clinical Laboratory Improvement Amendments of 1988 (CLIA) and are qualified to perform this test. Not Detected 2 Units are mL/min/1.73 m2 Chronic Kidney Disease Staging per NKF: Stage I & II GFR >=60 Normal to Mildly Decreased Stage III GFR 30-59 Moderately Decreased Stage IV GFR 15-29 Severely Decreased Stage V GFR <15 Very Little GFR Left ESRD GFR <15 on CHARGE LPN Procedures Date Code Description Status 05/21/2021 08704 Left Heart Cath W/Wo LV & Everett ry Angiography Completed 05/21/2021 06120 Perc Transcatheter Placement, In tracoronary Stent W/Plasty Completed Medical Devices Description No Information Available Encounters Description No Information Available Assessments Description No Information Available Plan of Treatment No Information Available Functional Status Description No Information Available Mental Status Description No Information Available Referrals Description No Information Available
--- OUTSIDE RECORDS SUMMARY | 2021-07-31 07:05 | CCD | Continuity of Care Document ---
Author Author Lisa MANLEY MD Organization Unknown Address [address] [place] [address] [place] [id number] Phone [phone] Care Team Providers Care Clinic Mgr Name Role Phone Chavez Vale MD AUTM Patty JaraP-C AUTM [phone] [facility] AUTM [phone] Problems Description No Information Available Social History Type Date Description Comments Sex Unknown Allergies, Adverse Reactions, Alerts Description No Information Available Medications Description No Information Available Immunizations Description No Information Available Vital Signs Description No Information Available Results Test Acquired Date Facility Test Result H/L Range Note CBC With Differential 05/29/2021 [facility] [phone] White Blood Count 8.7 10 Normal 4.0-10.0 [...] 36.0-66.0 Lymph % 25.8 % Normal 24.0-44.0 [place] % 4.7 % Normal 2.0-8.0 Eos % 5.4 % High 0.0-3.0 Baso % 0.6 % Normal 0.0-1.0 Immature Granulocyte % 0.5 % Normal 0-3.0 Nucleated Red Blood Cell % 0.0 % Normal 0-0 Neutrophils # 5.5 10 Normal 1.5-8.5 Lymph # 2.3 10 Normal 1.5-5.0 [place] # 0.4 10 Normal 0.0-0.8 Eos # 0.5 10 Normal 0.0-0.5 Baso # 0.1 10 Normal 0.0-0.2 Basic Metabolic Profile 05/29/2021 [facility] [phone] Glucose, Fasting 85 mg/dL Normal 70-100 Blood Urea Nitrogen 8 mg/dL Normal 7-18 Creatinine For GFR 0.55 mg/dL Normal 0.55-1.30 Glomerular Filtration Rate > 60.0 Normal >51 1 Sodium Level 142 mEq/L Normal 136-145 Potassium Serum 4.1 mEq/L Normal 3.5-5.1 Chloride Level 109 mEq/L High 98-107 Carbon Dioxide Level 31 mmol/L High 20-29 Anion Gap 2 mEq/L Low 8-16 Calcium Level 9.6 mg/dL Normal 8.5-10.1 1 Units are mL/min/1.73 m2 Chronic Kidney Disease Staging per NKF: Stage I & II GFR >=60 Normal to Mildly Decreased Stage III GFR 30-59 Moderately Decreased Stage IV GFR 15-29 Severely Decreased Stage V GFR <15 Very Little GFR Left ESRD 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 Procedures Date Code Description Status 05/21/2021 42720 Left Heart Cath W/Wo LV & Everett ry Angiography Completed 05/21/2021 73127 Perc Transcatheter Placement, In tracoronary Stent W/Plasty Completed Medical Devices Description No Information Available Encounters Description No Information Available Assessments Description No Information Available Plan of Treatment Future Appointment(s):* 06/11/2021 1:00 pm - Fernanda Manley MD at [facility] Functional Status Description No Information Available Mental Status Description No Information Available Referrals Description No Information Available
--- OUTSIDE RECORDS SUMMARY | 2021-07-31 07:05 | CCD ---
Author Author [facility] Organization [facility] Address Unknown Phone Unavailable Care Team Providers Care Tank Cooper Name Role Phone Robbie Trimble Unavailable PROBLEMS Type Condition ICD9-CM Code [id number] Code Onset Dates Condition S tatus W/U Status Risk SNOMED Code Notes Problem Multilevel degenerative disc disease M53.9 Act theresa confirmed 42328380 Problem Essential hypertension I10 Active confirmed 25249851 Problem Fibromyalgia M79.7 Active confirmed 0188002 7 Problem Gastroesophageal reflux disease without esophagitis K21.9 Active confirmed 696015387 Problem Acute myocardial infarction, unspecified site, episode of care unspecified 410.90 Active confirmed 85287691 Problem Mixed hyperlipidemia E78.2 Active confirmed 635041241 Problem Back pain, unspecified back location, unspecified back pain laterality, unspecified chronicity M54.9 Active confirmed 6937424 05 Problem Tobacco use disorder Z72.0 Active confirmed 16990385 Problem Chronic neck pain M54.2 Active confirmed 11 78096139542 Problem Ovarian mass, left N83.8 Active confirmed 1 [id number] Problem Family hx of ovarian malignancy Z80.41 Active confi rmed 389684127 Problem Hx of hysterectomy Z90.710 Active confirmed 955631438 Problem Nicotine dependence, uncomplicated, unspecified nicotine product type F17.200 Active confirmed 34613480 Problem Paresthesia of skin R20.2 Active confirmed 43701782 Problem Anxiety state F41.1 Active confirmed 435610 003 Problem Iron deficiency anemia secondary to inadequate d ietary iron intake D50.8 Active confirmed 248876608 Problem Positive HAVEN (antinuclear antibody) R76.8 Acti ve confirmed 805814229 Problem Chronic back pain M54.9 Active confirmed 13 2403041 Problem Depressive disorder, not elsewhere classified F32. 9 Active confirmed 93944163 Problem Dyspareunia in female N94.10 Active confirmed 88948800 Problem Tobacco use disorder F17.200 Active confirmed 373033957 Problem Coronary artery disease I25.10 Active confirmed 00930441 Problem Pica in adults F50.89 Active confirmed 81669 003 ALLERGIES Allergen (clinical drug ingredient) Drug/Non Drug Allergy do cumented on EMR Reaction Allergy Type Onset Date Status ibuprofen Ibuprofen([facility] Code:[address]-14) Cannot take du e to gastric bypass Drug Allergy Active cephalexin Keflex([facility] Code:[address]-09) Rash Drug Allergy Active acetaminophen / oxycodone Percocet([facility] Code:[address]-06) Nause a/Vomiting Drug Allergy Active metoclopramide Reglan([facility] Code:[address]-96) Anxiety Drug Allergy Active ENCOUNTERS from 1967 to 2021-06-08 Encounter Location Date Provider Diagnosis [facility] [phone] [place] [address] May, Robbie Trimble Ovarian cyst N83.209 IMMUNIZATIONS Vaccine Route Administration Date Status Influenza 18 yrs & older Flublok IM Intramuscular Jul 24, 2018 Administered Influenza 6mo & up Fluzone Unknown February 08, 2017 Refus ed Influenza 6mo & up Fluzone IM Sep 15, 2010 Admin istered SOCIAL HISTORY Tobacco Use: Social History Observation Description Date Details (start date - stop date) Current Smoker Sex Assigned At : Social History Observation Description Sex Assigned At Unknown Education: Question Answer Notes Level of Education: Not Finished College Audit Question Answer Notes Total Score: 0 Interpretation: Alcohol Education Language: Question Answer Notes Languages spoken: Slovenian Zoroastrian: Question Answer Notes Zoroastrian 08 [facility] Drug and Alcohol Question Answer Notes Total Score: 0 Interpretation: No problems reported Alcohol Screening: Question Answer Notes Did you have a drink containing alcohol in the past year? No Points 0 Interpretation Negative BMI Care Goal Follow-Up Question Answer Notes Above Normal BMI Follow-Up Dietary management educatio n, guidance, and counseling 25.4 Tobacco Use: Question Answer Notes Are you a: current smoker Additional Findings: Tobacco User Light cigarette smoker ((1 -9 cigs/day) Smoking Cessation Information Given 01/21/2021 Patient counseled on the dangers of tobacco use and urged to quit: 01/21/2021 How many cigarettes a day do you smoke? 6-10 Are you interested in quitting? Ready to quit Counseled the patient on tobacco use, cessation provided 01/2021 REASON FOR REFERRAL No Information VITAL SIGNS Weight 158 lbs May, Height 67.75 in May, BMI 24.2 kg/m2 May, Blood pressure systolic 132 mm Hg May, Blood pressure diastolic 78 mm Hg May, MEDICATIONS Medication SIG (Take, Route, Frequency, Duration) Notes Start Da te End Date Status Lisinopril 5 MG TAKE 1 TABLET BY MOUTH EVERY NIGHT AT BEDTIME Oral Active Gabapentin 400 MG 1 capsule Orally MDD 3 three times daily fibro myalgia Apr, Not-Taking Multivitamin Adult - 1 tablet Orally Once a day for 30 day(s) Active Rosuvastatin Calcium 20 MG TAKE 1 TABLET BY MOUTH EVERYDAY AT BEDTI ME Oral Active PriLOSEC 20 MG TAKE 1 CAPSULE BY MOUTH TWICE A DAY for 30 Not-Taking ALPRAZolam 0.25 MG 1 tablet Orally Daily anxiety Not-Taking Sleep Aid Active hydrOXYzine HCl 50 MG 2-3 tablet as needed Orally before bedtime anxiety, sleep Not-Taking Melatonin 5 MG 1 tablet in the evening Orally Once a day Not-Taking Diclofenac Sodium 50 MG TAKE 1 TABLET BY MOUTH TWICE A DAY NEEDED FOR PAIN Oral for 30 Active busPIRone HCl 10 MG 2 tablet Orally Twice a day anxiety Not-Taking Simvastatin 20 MG 1 tablet in the evening Orally Once a da y hypercholesterolemia Not-Taking Acetaminophen Active Enalapril Maleate 5 MG 1 tablet orally Daily hypertension Not-Taking Aspirin 81 Active Ferrous Sulfate 325 (65 Fe) MG 1 tablet Orally Once a day for 30 day(s) Mar, Active Brilinta 90 MG 1 tablet Twice a day Active predniSONE 20 MG 2 tablet Orally Once a day for 5 Not-Taking Famotidine 40 MG 1 tablet at bedtime Orally Once a day for 30 da y(s) Oct, Not-Taking Viibryd 40 MG TAKE 1 TABLET BY MOUTH ONCE A DAY IN THE MORNING. Orally Once a day depression Not-Taking Atenolol 25 mg 1 tablet Orally Once a day for 30 day(s) Not-Taking Chantix Starting Month Michael 0.5 MG X 11 & 1 MG X 42 1 tab Ora lly as directed on 1 mg now Aug, Not-Taking Cipro 500 MG 1 tablet Orally every 12 hrs for 10 day(s) Jul, Not-Taking Omeprazole 40 MG 1 capsule Orally bid for 30 day(s) January Not-Taking Aspirin 325 MG 1 tablet Orally Once a day CAD Not-Taking Cyclobenzaprine HCl 10 MG 1 tablet as needed Orally Th ree times a day prn pain/spasms for 30 day(s) muscle relaxant Not-Ta cha Nitroglycerin 0.4 MG 1 tablet under the tongue Sublingual prn Chest pain CAD Not-Taking Magnesium 250 MG 1 tablet with a meal Orally Once a day Not-Taking PROCEDURES No Information RESULTS No Results REASON FOR VISIT PRE OP SURG 06/05/21 MEDICAL (GENERAL) HISTORY Type Description Date Medical History Fibromyalgia Medical History Hypertension Medical History Cyst lt breast Medical History Elevated cholesterol Medical History Depression Medical History GERD Medical History [place]/CAD 2007 Medical History Antibody 1 lupus Surgical History Tubal 1991 Surgical History Hysterectomy Ovaries remain 1997 Surgical History laminectomyL4-5, L5-S1 2008 Surgical History Bx on lt breast 2002 Surgical History Abd lipoma removal 2005 Surgical History Bariatric Surgery 10/24/10 Surgical History Back surgery X 3 01/2014 Surgical History bunionectomy left foot 03/2015 Surgical History Cholecystectomy 10/23/16 Surgical History Incisional hernia-post gall bladder 03/14 Surgical History colonoscopy: Hyperplastic Polyp, diverti culosis 03/2018 Surgical History Injections-right knee 10/13/18 Surgical History Appendectomy 12/15/20 Hospitalization History [place] 2007 Hospitalization History [facility] overnight for overdose on tyleno l pm 02/22/2013 Hospitalization History [facility] ER-chest pain 06/25/16 Hospitalization History [facility] knee injury 11/07/16 Hospitalization History [facility] 03/18/18 Goals Section No Information Health Concerns No Information MEDICAL EQUIPMENT No Information MENTAL STATUS No Information FUNCTIONAL STATUS No Information ASSESSMENTS Encounter Date Diagnosis Assessment Notes Treatment Notes Treatm ent Clinical Notes May, Ovarian cyst (ICD-10 - N83.209) PLAN OF TREATMENT Next Appt Details Provider Name:Patty Jara, 2020-0 9- 03:00:00 PM, [address], , [place], [address], Provider Name:Robbie Florentino Trimble, 2021-06-19 08:15:00 AM, [address] [facility], , [place], [address], Insurance Providers Payer Name Payer Address Payer Phone Insured Name Patient Relati onship to Insured Coverage Start Date Coverage End Date [facility] [address] [facility] [address] [place]AW MCCLELLAN self
--- OUTSIDE RECORDS SUMMARY | 2021-07-31 07:05 | CCD ---
Author Author [facility] Organization [facility] Address Unknown Phone Unavailable Care Team Providers Care Bar Manager Name Role Phone Robbie Trimble Unavailable PROBLEMS Type Condition ICD9-CM Code NJE71-RD Code Onset Dates Condition S tatus W/U Status Risk SNOMED Code Notes Problem Multilevel degenerative disc disease M53.9 Act theresa confirmed 29851103 Problem Essential hypertension I10 Active confirmed 93396315 Problem Fibromyalgia M79.7 Active confirmed 3525556 7 Problem Gastroesophageal reflux disease without esophagitis K21.9 Active confirmed 114016031 Problem Acute myocardial infarction, unspecified site, episode of care unspecified 410.90 Active confirmed 22517971 Problem Mixed hyperlipidemia E78.2 Active confirmed 623280043 Problem Back pain, unspecified back location, unspecified back pain laterality, unspecified chronicity M54.9 Active confirmed 9837617 05 Problem Tobacco use disorder Z72.0 Active confirmed 50391823 Problem Chronic neck pain M54.2 Active confirmed 11 17688117718 Problem Ovarian mass, left N83.8 Active confirmed 1 7340674208932449 Problem Family hx of ovarian malignancy Z80.41 Active confi rmed 772662574 Problem Hx of hysterectomy Z90.710 Active confirmed 698817122 Problem Nicotine dependence, uncomplicated, unspecified nicotine product type F17.200 Active confirmed 79646395 Problem Paresthesia of skin R20.2 Active confirmed 49835862 Problem Anxiety state F41.1 Active confirmed 670451 003 Problem Iron deficiency anemia secondary to inadequate d ietary iron intake D50.8 Active confirmed 107756731 Problem Positive HAVEN (antinuclear antibody) R76.8 Acti ve confirmed 912014974 Problem Chronic back pain M54.9 Active confirmed 13 9453341 Problem Depressive disorder, not elsewhere classified F32. 9 Active confirmed 13933563 Problem Dyspareunia in female N94.10 Active confirmed 50151797 Problem Tobacco use disorder F17.200 Active confirmed 601280343 Problem Coronary artery disease I25.10 Active confirmed 80226137 Problem Pica in adults F50.89 Active confirmed 16631 003 ALLERGIES Allergen (clinical drug ingredient) Drug/Non Drug Allergy do cumented on EMR Reaction Allergy Type Onset Date Status ibuprofen Ibuprofen([facility] Code:[address]-56) Cannot take du e to gastric bypass Drug Allergy Active cephalexin Keflex([facility] Code:[address]-91) Rash Drug Allergy Active acetaminophen / oxycodone Percocet([facility] Code:[address]-09) Nause a/Vomiting Drug Allergy Active metoclopramide Reglan([facility] Code:[address]-50) Anxiety Drug Allergy Active ENCOUNTERS from 1967 to 2021-05-14 Encounter Location Date Provider Diagnosis [facility] [employer] [facility] [phone] [place] [address] Apr, Robbie Trimble IMMUNIZATIONS Vaccine Route Administration Date Status Influenza [...] Education Language: Question Answer Notes Languages spoken: Sri Lankan Presybeterian: Question Answer Notes Presybeterian 08 Catholic Drug and Alcohol Question Answer Notes Total [...] REASON FOR REFERRAL No Information VITAL SIGNS No information MEDICATIONS Medication SIG (Take, Route, Frequency, Duration) Notes Start Da te End Date Status busPIRone HCl 10 MG 2 tablet Orally Twice a day anxiety Not-Taking Omeprazole 40 MG 1 capsule Orally bid for 30 day(s) January Not-Taking Cipro 500 MG 1 tablet Orally every 12 hrs for 10 day(s) Jul, Not-Taking predniSONE 20 MG 2 tablet Orally Once a day for 5 Not-Taking Nitroglycerin 0.4 MG 1 tablet under the tongue Sublingual prn Chest pain CAD Not-Taking Gabapentin 400 MG 1 capsule Orally MDD 3 three times daily fibro myalgia Apr, Not-Taking Aspirin 325 MG 1 tablet Orally Once a day CAD Not-Taking hydrOXYzine HCl 50 MG 2-3 tablet as needed Orally before bedtime anxiety, sleep Not-Taking Enalapril Maleate 5 MG 1 tablet orally Daily hypertension Not-Taking Viibryd 40 MG TAKE 1 TABLET BY MOUTH ONCE A DAY IN THE MORNING. Orally Once a day depression Not-Taking ALPRAZolam 0.25 MG 1 tablet Orally Daily anxiety Not-Taking Multivitamin Adult - 1 tablet Orally Once a day for 30 day(s) Active Acetaminophen Active Cyclobenzaprine HCl 10 MG 1 tablet as needed Orally Th ree times a day prn pain/spasms for 30 day(s) muscle relaxant Not-Ta cha Ferrous Sulfate 325 (65 Fe) MG 1 tablet Orally Once a day for 30 day(s) Mar, Active Chantix Starting Month Michael 0.5 MG X 11 & 1 MG X 42 1 tab Ora lly as directed on 1 mg now Aug, Not-Taking Magnesium 250 MG 1 tablet with a meal Orally Once a day Not-Taking Atenolol 25 mg 1 tablet Orally Once a day for 30 day(s) Not-Taking Melatonin 5 MG 1 tablet in the evening Orally Once a day Not-Taking Simvastatin 20 MG 1 tablet in the evening Orally Once a da y hypercholesterolemia Not-Taking Rosuvastatin Calcium 20 MG TAKE 1 TABLET BY MOUTH EVERYDAY AT BEDTI ME Oral Active Lisinopril 5 MG TAKE 1 TABLET BY MOUTH EVERY NIGHT AT BEDTIME Oral Active Sleep Aid Active PriLOSEC 20 MG TAKE 1 CAPSULE BY MOUTH TWICE A DAY for 30 Not-Taking Famotidine 40 MG 1 tablet at bedtime Orally Once a day for 30 da y(s) Oct, Not-Taking Diclofenac Sodium 50 MG TAKE 1 TABLET BY MOUTH TWICE A DAY NEEDED FOR PAIN Oral for 30 Active PROCEDURES No Information RESULTS No Results REASON FOR VISIT SURGERY 06/05/21 AUTH MEDICAL (GENERAL) HISTORY Type Description Date Medical History Fibromyalgia Medical History Hypertension Medical History Cyst lt breast Medical History Elevated cholesterol Medical History Depression Medical History GERD Medical History [place]/CAD 2007 Medical History Antibody 1 lupus Surgical [...] 12/15/20 Hospitalization History [place] 2007 Hospitalization History [facility] overnight for overdose on tyleno l pm 02/22/2013 Hospitalization History [facility] ER-chest pain 06/25/16 Hospitalization History [facility] knee injury 11/07/16 Hospitalization History [facility] 03/18/18 Goals Section No Information Health Concerns No Information MEDICAL EQUIPMENT No Information MENTAL STATUS No Information FUNCTIONAL STATUS No Information ASSESSMENTS No Information PLAN OF TREATMENT Next Appt Details Provider Name:Robbie Trimble, 2021-05-20 08:00:00 AM, [address] [facility], , [place], [address], Provider Name:Patty Jara, 06-03 08:00:00 AM, [address] [place] [address], , [place], [address], Provider Name:Robbie Trimble, 2021-06-05 11:30:00 AM, [address] [facility] [phone], [place], [address], Provider Name:Patty Jara, 06-16 03:00:00 PM, [facility], , [place], [address], Provider Name:Robbie Trimble, 2021-06-19 08:15:00 AM, [address] [facility], , [place], [address], Insurance Providers Payer Name Payer Address Payer Phone Insured Name Patient Relati onship to Insured Coverage Start Date Coverage End Date [facility] COMM[facility] [address] [facility] [phone] [place]AW MCCLELLAN self
--- OUTSIDE RECORDS SUMMARY | 2021-07-31 07:05 | CCD ---
Author Author [facility] Organization [facility] Address Unknown Phone Unavailable Care Team Providers Care Associate Entertainment Editor Name Role Phone Patty Jara Unavailable PROBLEMS Type Condition ICD9-CM Code CCK90-[place] Code Onset Dates Condition S tatus W/U Status Risk SNOMED Code Notes Problem Gastroesophageal reflux disease without esophagitis K21.9 Active confirmed 315090295 Problem Multilevel degenerative disc disease M53.9 Act theresa confirmed 59994602 Problem Mixed hyperlipidemia E78.2 Active confirmed 046821156 Problem Fibromyalgia M79.7 Active confirmed 7363351 7 Problem Chronic neck pain M54.2 Active confirmed 11 [id number] Problem Acute myocardial infarction, unspecified site, episode of care unspecified 410.90 Active confirmed 20709811 Problem Positive HAVEN (antinuclear antibody) R76.8 Acti ve confirmed 009340581 Problem Chronic back pain M54.9 Active confirmed 13 4939724 Problem Back pain, unspecified back location, unspecified back pain laterality, unspecified chronicity M54.9 Active confirmed 1804016 05 Problem Tobacco use disorder Z72.0 Active confirmed 06179994 Problem Tobacco use disorder F17.200 Active confirmed 671910234 Problem Family hx of ovarian malignancy Z80.41 Active confi rmed 994987001 Problem Hx of hysterectomy Z90.710 Active confirmed 655974472 Problem Iron deficiency anemia secondary to inadequate d ietary iron intake D50.8 Active confirmed 463529626 Problem Dyspareunia in female N94.10 Active confirmed 47918587 Problem Depressive disorder, not elsewhere classified F32. 9 Active confirmed 31558423 Problem Cigarette nicotine dependence without complication F17.210 Active confirmed 57476975 Problem Paresthesia of skin R20.2 Active confirmed 98044076 Problem Anxiety state F41.1 Active confirmed 150526 003 Problem Essential hypertension I10 Active confirmed 37274849 Problem Ovarian mass, left N83.8 Active confirmed 1 [id number] Problem Coronary artery disease I25.10 Active confirmed 73679613 Problem Pica in adults F50.89 Active confirmed 95252 003 Problem Nicotine dependence, uncomplicated, unspecified nicotine product type F17.200 Active confirmed 30239175 ALLERGIES Allergen (clinical drug ingredient) Drug/Non Drug Allergy do cumented on EMR Reaction Allergy Type Onset Date Status ibuprofen Ibuprofen([facility] Code:[address]-19) Cannot take du e to gastric bypass Drug Allergy Active cephalexin Keflex([facility] Code:[address]-30) Rash Drug Allergy Active acetaminophen / oxycodone Percocet([facility] Code:[address]-05) Nause a/Vomiting Drug Allergy Active metoclopramide Reglan([facility] Code:[address]-90) Anxiety Drug Allergy Active ENCOUNTERS from 1967 to 2021-07-16 Encounter Location Date Provider Diagnosis [facility] Benny GOMEZ [phone] [place] [address] Jun, Pattyleonor [place]ry Tear of right acetabular labrum, subsequ ent encounter S73.191D ; Bruising T14.8XXA and Pica in adults F50.89 IMMUNIZATIONS Vaccine Route Administration Date Status Influenza [...] Education Language: Question Answer Notes Languages spoken: Wolof Gnosticist: Question Answer Notes Gnosticist 08 Mandaeism Drug and Alcohol Question Answer Notes Total [...] use, cessation provided 01/2021 REASON FOR REFERRAL from 1967 to 2021-07-16 Reason please eval and treat for ri ght hip pain with labral tear confirmed on MRI. Diagnosis 1 Tear of right acetabular lab rum, subsequent encounter (S73.191D) Referral Organization [facility] Benny Referring Provider First Name Patty Referring Provider Last Name Marek Referring Provider Specialty Family Medicine Referred Provider Gerry Gifford Referral Priority Routine General Notes Elizabeth Keene 07/15/2021 11:59:25 AM > sent with imaging attached. VITAL SIGNS Weight 155.8 lbs Jun, Weight-kg 70.67 kg Jun, Height 67.75 in Jun, BMI 23.86 kg/m2 Jun, Heart Rate 90 /min Jun, Respiratory Rate 20 /min Jun, Temperature 98.2 degrees Fahrenheit Jun, Oximetry 98 Jun, Blood pressure systolic 108 mm Hg Jun, Blood pressure diastolic 72 mm Hg Jun, MEDICATIONS Medication SIG (Take, Route, Frequency, Duration) Notes Start Da te End Date Status Diclofenac Sodium 50 MG TAKE 1 TABLET BY MOUTH TWICE A DAY NEEDED FOR PAIN Oral for 30 Active Magnesium 250 MG 1 tablet with a meal Orally Once a day Not-Taking Multivitamin Adult - 1 tablet Orally Once a day for 30 day(s) Active Gabapentin 400 MG 1 capsule Orally MDD 3 three times daily fibro myalgia Apr, Not-Taking Atenolol 25 mg 1 tablet Orally Once a day for 30 day(s) Not-Taking Aspirin 81 Active predniSONE 20 MG 2 tablet Orally Once a day for 5 Not-Taking Aspirin 325 MG 1 tablet Orally Once a day CAD Not-Taking Acetaminophen Active Enalapril Maleate 5 MG 1 tablet orally Daily hypertension Not-Taking Clopidogrel Bisulfate 75 MG 1 tablet Orally Once a day for 30 day(s) Not-Taking busPIRone HCl 10 MG 2 tablet Orally Twice a day anxiety Not-Taking Lisinopril 5 MG TAKE 1 TABLET BY MOUTH EVERY NIGHT AT BEDTIME Oral Active Rosuvastatin Calcium 20 MG TAKE 1 TABLET BY MOUTH EVERYDAY AT BEDTI ME Oral Active Ferrous Sulfate 325 (65 Fe) MG TAKE 1 TABLET BY MOUTH EVERY DAY for 3 0 Active Nitroglycerin 0.4 MG 1 tablet under the tongue Sublingual prn Chest pain CAD Active Cyclobenzaprine HCl 10 MG 1 tablet as needed Orally Th ree times a day prn pain/spasms for 30 day(s) muscle relaxant Not-Ta cha ALPRAZolam 0.25 MG 1 tablet Orally Daily anxiety Not-Taking Gabapentin 300 MG 1 capsule Orally tid for 30 day(s) 2020 Active Omeprazole 40 MG 1 capsule Orally bid for 30 day(s) January Not-Taking hydrOXYzine HCl 50 MG 2-3 tablet as needed Orally before bedtime anxiety, sleep Not-Taking Brilinta 90 MG 1 tablet Twice a day Active Cipro 500 MG 1 tablet Orally every 12 hrs for 10 day(s) Jul, Not-Taking Sleep Aid Active Chantix Starting Month Michael 0.5 MG X 11 & 1 MG X 42 1 tab Ora lly as directed on 1 mg now Aug, Not-Taking Viibryd 40 MG TAKE 1 TABLET BY MOUTH ONCE A DAY IN THE MORNING. Orally Once a day depression Not-Taking Melatonin 5 MG 1 tablet in the evening Orally Once a day Not-Taking Famotidine 40 MG 1 tablet at bedtime Orally Once a day for 30 da y(s) Oct, Not-Taking Simvastatin 20 MG 1 tablet in the evening Orally Once a da y hypercholesterolemia Not-Taking PriLOSEC 20 MG TAKE 1 CAPSULE BY MOUTH TWICE A DAY for 30 Not-Taking PROCEDURES No Information RESULTS Component Value Reference Range CBC with Differential Reviewed date:07/16/2021 07:03:12 Interpretation:Normal Performing Lab:[facility], [facility] [id number] , ,[place] [address] WHITE BLOOD COUNT 10.1 4.0-10.0 RED BLOOD COUNT 4.58 4.00-5.40 HEMOGLOBIN 14.4 12.0-15.5 HEMATOCRIT 43.2 36.0-47.0 MEAN CORPUSCULAR VOLUME 94.3 80.0-96.0 MEAN CORPUSCULAR HEMOGLOBIN 31.4 27.0-33.0 MEAN CORPUSCULAR HGB CONC 33.3 32.0-36.5 RED CELL DISTRIBUTION WIDTH 15.7 11.5-14.5 PLATELET COUNT, AUTOMATED 207 150-450 NEUTROPHILS % 69.6 36.0-66.0 LYMPH % 20.2 24.0-44.0 MONO % 5.7 2.0-8.0 EOS % 3.3 0.0-3.0 BASO % 0.7 0.0-1.0 NEUTROPHILS # 7.0 1.5-8.5 LYMPH # 2.0 1.5-5.0 MONO # 0.6 0.0-0.8 EOS # 0.3 0.0-0.5 BASO # 0.1 0.0-0.2 MAGNESIUM LEVEL Reviewed date:07/16/2021 07:03:12 Interpretation:Normal Performing Lab:[facility] [address] [place] [address] , ,[place] [address] MAGNESIUM LEVEL 1.8 1.8-2.4 TOTAL IRON BINDING CAPACIT Reviewed date:07/16/2021 07:03:12 Interpretation:Normal Performing Lab:[facility] [address] [address] , ,[place] [address] IRON (FE) 98 50-170 TOTAL IRON BINDING CAPACITY 329 250-450 PERCENT SATURATION 29.8 13.2-45.0 VITAMIN B12 LEVEL Reviewed date:07/16/2021 07:03:12 Interpretation:Normal Performing Lab:[facility] [address] [address] , ,[place] [address] VITAMIN B12 LEVEL [phone] REASON FOR VISIT 4 wk MEDICAL (GENERAL) HISTORY Type Description Date Medical History Fibromyalgia Medical History Hypertension Medical History Cyst lt breast Medical History Elevated cholesterol Medical History Depression Medical History GERD Medical History CT/CAD 2007 Medical History Antibody 1 lupus Surgical History Tubal 1992 Surgical History Hysterectomy Ovaries remain 1997 Surgical [...] Injections-right knee 10/13/18 Surgical History Appendectomy 12/15/20 Surgical History Angioplasty - [facility] [place] 06/11/2021 Hospitalization History [place] 2007 Hospitalization History [facility] overnight for overdose on tyleno l pm 02/22/2013 Hospitalization History [facility] ER-chest pain 06/25/16 Hospitalization History [facility] knee injury 11/07/16 Hospitalization History [facility] 03/18/18 Hospitalization History Childbirth Goals Section No Information Health Concerns No Information MEDICAL EQUIPMENT No Information MENTAL STATUS No Information FUNCTIONAL STATUS No Information ASSESSMENTS Encounter Date Diagnosis Assessment Notes Treatment Notes Treatm ent Clinical Notes Jun, Tear of right acetabular lab rum, subsequent encounter (ICD-10 - S73.191D) referred to orthopedics. MRI reviewed with patient. Jun, Bruising (ICD-10 - T14.8XXA) labs ordered. Jun, Pica in adults (ICD-10 - F50.89) resolved with addition of iron PLAN OF TREATMENT Treatment Notes Assessment Notes Clinical Notes Tear of right acetabular labrum, subsequent encounter referred to orthopedics. MRI reviewed with patient. Bruising labs ordered. Pica in adults resolved with additi on of iron Referrals Referral Date Details please eval and treat for ri ght hip pain with labral tear confirmed on MRI.Gerry Next Appt Details Provider Name:Robbie Trimble, 2021-07-31 08:45:00 AM, [address] [place] [address], , [place], [address], Provider Name:Robbie Trimble, 2021-08-17 09:00:00 AM, [address] [place] [address], , [place], [address], Insurance Providers Payer Name Payer Address Payer Phone Insured Name Patient Relati onship to Insured Coverage Start Date Coverage End Date [facility] [place] [place] [address] [facility] [address] SHAW MCCLELLAN self
--- OUTSIDE RECORDS SUMMARY | 2021-07-31 07:05 | CCD | Continuity of Care Document ---
Author Author [facility]IE P.A[facility] Organization Unknown Address [address], [facility] [address] [place] [address] Phone [phone] Care Team Providers Care Producer Assistant Name Role Phone Cande Jara AUTM [phone] Gerry Gifford MD AUTM [phone] Problems Description No Information Available Social History Type Date Description Comments Sex Unknown ETOH Use Rarely consumes alcohol Tobacco Use Start: Unknown Patient is a current smoker, smo kes every day Allergies and adverse reactions Active Allergies Criticality Reaction | Severity Comments Date Keflex Unable to assess criticality 11/15/2016 Ibuprofen Unable to assess criticality 11/15/2016 Reglan Unable to assess criticality 11/15/2016 Percocet Unable to assess criticality 11/15/2016 Medications Active Medications SIG Qnty Indications Ordering Provide r Date Enalapril Tablets Unknown Atenolol Tablets 1 by jesica th every day Unknown Hydroxyzine HCL Tablets 1 by mouth four times daily Unknown Prilosec Capsules DR 1 by mouth every day, please fill generic Unknown 000 Gabapentin Capsules 1 by mouth twice a day Unknown Cyclobenzaprine HCL 10mg Tablets take one tablet by mouth three times a day as needed Unkn own Multivitamins Capsules Unknown Simvastatin 20mg Tablets take one tablet by mouth at bedtime Unknown Alprazolam 0.25mg Tablets 1 by mouth two times a day Unknown Viibryd 40mg Tablets Unknown Buspirone HCL 10mg Tablets 1 by mouth by mouth twice a day Unknown Nitroglycerin 0.4mg Tablets Sub 1 tab sl every 5 min times 3 doses as needed chest discomfort/pain Unknown Immunizations Description No Information Available Vital Signs Date Vital Result Comment 07/24/2021 8:50am Body Temperature 96.9 F Height 66.5 inches 5'6.50" Weight 156.12 lb BMI (Body Mass Index) 24.8 kg/m2 08/12/2020 11:25am Body Temperature 97.3 F Height 67 inches 5'7" Weight 162.00 lb BMI (Body Mass Index) 25.4 kg/m2 Results Description No Information Available Procedures Description No Information Available Medical Devices Description No Information Available Encounters Description No Information Available Assessments Date Code Description Provider 07/24/2021 M16.11 Unilateral primary osteoarthriti s, right hip Talat Marie, Jill. 07/24/2021 M67.853 Other specified disorders of ten don, right hip Paulina Goyal Plan of Treatment 07/24/2021 - Jill Goyal.* M16.11 Unilateral primary osteoarthritis, right hip* New Xrays:* Fluroscopic xray guided steroid injection right hip, Ordered: 07/24/21 * Follow up:* after rt hip inj with [facility] * M67.853 Other specified disorders of tendon, right hip Functional Status Description No Information Available Mental Status Description No Information Available Referrals Refer to Reason for Referral Status Appt Date Gerry Gifford MD S73.191D OTHER SPRAIN OF RIGHT HIP, SUBS EQUENT ENCOUNTER Created [facility], [address] [place] [address] [phone]
--- OUTSIDE RECORDS SUMMARY | 2021-07-31 07:05 | CCD ---
Author Author [facility] Organization [facility] Address Unknown Phone Unavailable Care Team Providers Care Caustic Strength Inspector Name Role Phone Patty Jara Unavailable PROBLEMS Type Condition ICD9-CM Code SRT09-MG Code Onset Dates Condition S tatus W/U Status Risk SNOMED Code Notes Problem Gastroesophageal reflux disease without esophagitis K21.9 Active confirmed 639024421 Problem Multilevel degenerative disc disease M53.9 Act theresa confirmed 77932432 Problem Mixed hyperlipidemia E78.2 Active confirmed 302780689 Problem Fibromyalgia M79.7 Active confirmed 1328567 7 Problem Chronic neck pain M54.2 Active confirmed 11 06145949898 Problem Acute myocardial infarction, unspecified site, episode of care unspecified 410.90 Active confirmed 63692055 Problem Positive HAVEN (antinuclear antibody) R76.8 Acti ve confirmed 224403806 Problem Chronic back pain M54.9 Active confirmed 13 4966967 Problem Back pain, unspecified back location, unspecified back pain laterality, unspecified chronicity M54.9 Active confirmed 8059352 05 Problem Tobacco use disorder Z72.0 Active confirmed 44723712 Problem Tobacco use disorder F17.200 Active confirmed 245652410 Problem Family hx of ovarian malignancy Z80.41 Active confi rmed 823977230 Problem Hx of hysterectomy Z90.710 Active confirmed 343260503 Problem Iron deficiency anemia secondary to inadequate d ietary iron intake D50.8 Active confirmed 963051962 Problem Dyspareunia in female N94.10 Active confirmed 94792700 Problem Depressive disorder, not elsewhere classified F32. 9 Active confirmed 77862412 Problem Cigarette nicotine dependence without complication F17.210 Active confirmed 47843964 Problem Paresthesia of skin R20.2 Active confirmed 52024086 Problem Anxiety state F41.1 Active confirmed 582995 003 Problem Essential hypertension I10 Active confirmed 88713168 Problem Ovarian mass, left N83.8 Active confirmed 1 0598686285028921 Problem Coronary artery disease I25.10 Active confirmed 06840432 Problem Pica in adults F50.89 Active confirmed 09595 003 Problem Nicotine dependence, uncomplicated, unspecified nicotine product type F17.200 Active confirmed 20234656 ALLERGIES Allergen (clinical drug ingredient) Drug/Non Drug Allergy do cumented on EMR Reaction Allergy Type Onset Date Status ibuprofen Ibuprofen([facility] Code:[address]-76) Cannot take du e to gastric bypass Drug Allergy Active cephalexin Keflex([facility] Code:[address]-73) Rash Drug Allergy Active acetaminophen / oxycodone Percocet([facility] Code:[address]-08) Nause a/Vomiting Drug Allergy Active metoclopramide Reglan([facility] Code:[address]-37) Anxiety Drug Allergy Active ENCOUNTERS from 1967 to 2021-06-17 Encounter Location Date Provider Diagnosis [facility] [address] [place] [address] [place] [address] 28 May, 2021 Patty Alberry Right hip pain M25.551 ; Ovarian cyst, l eft N83.202 ; Ovarian cyst, right N83.201 ; Fibromyalgia M79.7 ; Essential hypertension I10 ; Gastroesophageal reflux disease without esophagitis K21.9 ; Multilevel degenerative disc disease M53.9 ; Weakness R53.1 ; Paresthesia of skin R20.2 ; Coronary artery disease, unspecified vessel or lesion type, unspecified whether angina present, unspecified whether [place] or transplanted heart I25.10 ; Pica in adults F50.89 ; Pain in left foot M79.672 ; Pain in right foot M79.671 and Cigarette nicotine dependence without complication F17.210 IMMUNIZATIONS Vaccine Route Administration Date Status Influenza [...] Education Language: Question Answer Notes Languages spoken: [place] Evangelical: Question Answer Notes Evangelical 08 Anglican Drug and Alcohol Question Answer Notes Total [...] FOR REFERRAL No Information VITAL SIGNS Weight 157 lbs May, Weight-kg 71.21 kg May, Height 67.75 in May, BMI 24.05 kg/m2 May, Heart Rate 93 /min May, Respiratory Rate 20 /min May, Temperature 98.4 degrees Fahrenheit May, Oximetry 99 May, Blood pressure systolic 130 mm Hg May, Blood pressure diastolic 74 mm Hg May, MEDICATIONS Medication SIG (Take, Route, Frequency, Duration) Notes Start Da te End Date Status Rosuvastatin Calcium 20 MG TAKE 1 TABLET BY MOUTH EVERYDAY AT BEDTI ME Oral Active PriLOSEC 20 MG TAKE 1 CAPSULE BY MOUTH TWICE A DAY for 30 Not-Taking Chantix Starting Month Michael 0.5 MG X 11 & 1 MG X 42 1 tab Ora lly as directed on 1 mg now Aug, Not-Taking Famotidine 40 MG 1 tablet at bedtime Orally Once a day for 30 da y(s) Oct, Not-Taking Melatonin 5 MG 1 tablet in the evening Orally Once a day Not-Taking busPIRone HCl 10 MG 2 tablet Orally Twice a day anxiety Not-Taking Lisinopril 5 MG TAKE 1 TABLET BY MOUTH EVERY NIGHT AT BEDTIME Oral Active Nitroglycerin 0.4 MG 1 tablet under the tongue Sublingual prn Chest pain CAD Active hydrOXYzine HCl 50 MG 2-3 tablet as needed Orally before bedtime anxiety, sleep Not-Taking Viibryd 40 MG TAKE 1 TABLET BY MOUTH ONCE A DAY IN THE MORNING. Orally Once a day depression Not-Taking ALPRAZolam 0.25 MG 1 tablet Orally Daily anxiety Not-Taking Gabapentin 400 MG 1 capsule Orally MDD 3 three times daily fibro myalgia Apr, Not-Taking predniSONE 20 MG 2 tablet Orally Once a day for 5 Not-Taking Clopidogrel Bisulfate 75 MG 1 tablet Orally Once a day for 30 day(s) Active Aspirin 325 MG 1 tablet Orally Once a day CAD Not-Taking Cipro 500 MG 1 tablet Orally every 12 hrs for 10 day(s) Jul, Not-Taking Simvastatin 20 MG 1 tablet in the evening Orally Once a da y hypercholesterolemia Not-Taking Sleep Aid Active Acetaminophen Active Ferrous Sulfate 325 (65 Fe) MG 1 tablet Orally Once a day for 30 day(s) Mar, Active Multivitamin Adult - 1 tablet Orally Once a day for 30 day(s) Active Gabapentin 100 MG 1 capsule Orally tid for 30 day(s) 2020 Active Diclofenac Sodium 50 MG TAKE 1 TABLET BY MOUTH TWICE A DAY NEEDED FOR PAIN Oral for 30 Active Brilinta 90 MG 1 tablet Twice a day Active Aspirin 81 Active Magnesium 250 MG 1 tablet with a meal Orally Once a day Not-Taking Omeprazole 40 MG 1 capsule Orally bid for 30 day(s) January Not-Taking Cyclobenzaprine HCl 10 MG 1 tablet as needed Orally Th ree times a day prn pain/spasms for 30 day(s) muscle relaxant Not-Ta cha Enalapril Maleate 5 MG 1 tablet orally Daily hypertension Not-Taking Atenolol 25 mg 1 tablet Orally Once a day for 30 day(s) Not-Taking PROCEDURES No Information RESULTS No Results REASON FOR VISIT 3 MONTHS MEDICAL (GENERAL) HISTORY Type Description Date Medical History Fibromyalgia Medical History Hypertension Medical History Cyst lt breast Medical History Elevated cholesterol Medical History Depression Medical History GERD Medical History [place]/CAD 2007 Medical History Antibody 1 lupus Surgical [...] Hospitalization History Mi 2007 Hospitalization History [facility] overnight for overdose on tyleno l pm 02/22/2013 Hospitalization History [facility] ER-chest pain 06/25/16 Hospitalization History [facility]-urfpi knee injury 11/07/16 Hospitalization History [facility]-Uaxxmmpry LLL 03/18/18 Hospitalization History Childbirth Goals Section No Information Health Concerns No Information MEDICAL EQUIPMENT No Information MENTAL STATUS No Information FUNCTIONAL STATUS No Information ASSESSMENTS Encounter Date Diagnosis Assessment Notes Treatment Notes Treatm ent Clinical Notes May, Right hip pain (ICD-10 - M25.551) Spine surgeon does not feel related to spinal disease, has recommended spinal fusion and patient wishes to hold off on this. In tolerant to PT. Will proceed with MRI. May, Ovarian cyst, left (ICD-10 - N83.202) Continue with Dr. Olea. May, Ovarian cyst, right (ICD-10 - N83.201) May, Fibromyalgia (ICD-10 - M79.7) She declines referral back to rheumatology. Trial Gabapentin May, Essential hypertension (ICD-10 - I10) Her blood pressure is stable today. Continue with cardiology May, Gastroesophageal reflux dise ase without esophagitis (ICD-10 - K21.9) Denies any active symptoms May, Multilevel degenerative disc disease (ICD-10 - M 53.9) Continue with spine surgeon and the recommendations as well as testing May, Weakness (ICD-10 - R53.1) May be related to her spine issues May, Paresthesia of skin (ICD-10 - R20.2) May, Coronary artery disease, uns pecified vessel or lesion type, unspecified whether angina present, unspecified whether [place] or transplanted heart (ICD-10 - I25.10) Continue with cardiology. May, Pica in adults (ICD-10 - F50.89) We will Thornton, CBC, iron and B12 level. This may be some type of abnormal post Covid symptom. We will continue to monitor May, Pain in left foot (ICD-10 - M79.672) Continue with podiatry May, Pain in right foot (ICD-10 - M79.671) Continue with podiatry May, Cigarette nicotine dependenc e without complication (ICD-10 - F17.210) smoking cessation counseling given. Risks of smoking, including vascular disease (including stroke, heart attack), COPD ( including emphysema and chronic bronchitis), as well as reduced quality of life reviewed with pt PLAN OF TREATMENT Medication Medication Name Sig Start Date Stop Date Gabapentin 100 MG 1 capsule Orally tid for 30 day(s) May, Treatment Notes Assessment Notes Clinical Notes Right hip pain Spine surgeon does n ot feel related to spinal disease, has recommended spinal fusion and patient wishes to hold off on this. In tolerant to PT. Will proceed with MRI. Ovarian cyst, left Continue with Dr. Gagnon. Fibromyalgia She declines referra l back to rheumatology. Trial Gabapentin Essential hypertension Her blood pressur e is stable today. Continue with cardiology Gastroesophageal reflux disease without esophagitis Denies any active symptoms Multilevel degenerative disc disease Con tinue with spine surgeon and the recommendations as well as testing Weakness May be related to he r spine issues Coronary artery disease, unspecified ves katrin or lesion type, unspecified whether angina present, unspecified whether [place] or transplanted heart Continue with cardiology. Pica in adults We will Thornton, CBC, iron and B12 level. This may be some type of abnormal post Covid symptom. We will continue to monitor Pain in left foot Continue with podia try Cigarette nicotine dependence without complication smoking cessation counseling given. Risks of smoking, including vascular disease (including stroke, heart attack), COPD ( including emphysema and chronic bronchitis), as well as reduced quality of life reviewed with pt Pain in right foot Continue with podia try Treatment Notes Test Name Order Date [facility] MRI Hip WITHOUT CONTRAST 2021-06-16 Next Appt Details 4 Weeks Reason: Provider Name:Robbie Trimble, 2021-06-19 08:15:00 AM, [address] [facility], , [place], [address], Provider Name:Patty Jara, 2020-09 10:00:00 AM, [address], , [place], [address], Insurance Providers Payer Name Payer Address Payer Phone Insured Name Patient Relati onship to Insured Coverage Start Date Coverage End Date [facility] PLAN [facility] [address] [facility] [address] SHAW MCCLELLAN self
--- OUTSIDE RECORDS SUMMARY | 2021-07-31 07:05 | CCD ---
Author Author [facility] Organization [facility] Address Unknown Phone Unavailable Care Team Providers Care Sample Weaver Name Role Phone Robbie Trimble Unavailable PROBLEMS Type Condition ICD9-CM Code AKP77-YH Code Onset Dates Condition S tatus W/U Status Risk SNOMED Code Notes Problem Multilevel degenerative disc disease M53.9 Act theresa confirmed 43759053 Problem Essential hypertension I10 Active confirmed 88112192 Problem Fibromyalgia M79.7 Active confirmed 1745930 7 Problem Gastroesophageal reflux disease without esophagitis K21.9 Active confirmed 846487564 Problem Acute myocardial infarction, unspecified site, episode of care unspecified 410.90 Active confirmed 08604829 Problem Mixed hyperlipidemia E78.2 Active confirmed 151352723 Problem Back pain, unspecified back location, unspecified back pain laterality, unspecified chronicity M54.9 Active confirmed 6675623 05 Problem Tobacco use disorder Z72.0 Active confirmed 20192803 Problem Chronic neck pain M54.2 Active confirmed 11 67558356316 Problem Ovarian mass, left N83.8 Active confirmed 1 1295704807015877 Problem Family hx of ovarian malignancy Z80.41 Active confi rmed 500450185 Problem Hx of hysterectomy Z90.710 Active confirmed 630968024 Problem Nicotine dependence, uncomplicated, unspecified nicotine product type F17.200 Active confirmed 25986062 Problem Paresthesia of skin R20.2 Active confirmed 43321060 Problem Anxiety state F41.1 Active confirmed 799157 003 Problem Iron deficiency anemia secondary to inadequate d ietary iron intake D50.8 Active confirmed 667422156 Problem Positive HAVEN (antinuclear antibody) R76.8 Acti ve confirmed 154803032 Problem Chronic back pain M54.9 Active confirmed 13 4032306 Problem Depressive disorder, not elsewhere classified F32. 9 Active confirmed 80357058 Problem Dyspareunia in female N94.10 Active confirmed 21946062 Problem Tobacco use disorder F17.200 Active confirmed 631099556 Problem Coronary artery disease I25.10 Active confirmed 48103653 Problem Pica in adults F50.89 Active confirmed 86115 003 ALLERGIES Allergen (clinical drug ingredient) Drug/Non Drug Allergy do cumented on EMR Reaction Allergy Type Onset Date Status ibuprofen Ibuprofen([facility] Code:[address]-61) Cannot take du e to gastric bypass Drug Allergy Active cephalexin Keflex([facility] Code:[address]-94) Rash Drug Allergy Active acetaminophen / oxycodone Percocet([facility] Code:[address]-39) Nause a/Vomiting Drug Allergy Active metoclopramide Reglan([facility] Code:[address]-52) Anxiety Drug Allergy Active ENCOUNTERS from 1967 to 2021-05-13 Encounter Location Date Provider Diagnosis [facility] [phone] [place] [address] Apr, Robbie Trimble IMMUNIZATIONS Vaccine Route Administration [...] Education Language: Question Answer Notes Languages spoken: Polish Sabianist: Question Answer Notes Sabianist 08 Worship Drug and Alcohol Question Answer Notes Total [...] Information RESULTS No Results REASON FOR VISIT abnl echo MEDICAL (GENERAL) HISTORY Type Description Date Medical [...] 12/15/20 Hospitalization History Mi 2007 Hospitalization History [facility] overnight for overdose on tyleno l pm 02/22/2013 Hospitalization History [facility] ER-chest pain 06/25/16 Hospitalization History [facility]-IB-krird knee injury 11/07/16 Hospitalization History [facility]-QS-Qmryoteqz LLL 03/18/18 Goals Section No Information Health Concerns No Information MEDICAL EQUIPMENT No Information MENTAL STATUS No Information FUNCTIONAL STATUS No Information ASSESSMENTS No Information PLAN OF TREATMENT Next Appt Details Provider Name:Robbie Trimble, 2021-05-20 08:00:00 AM, [address] [facility] [phone], [place], [address], Provider Name:Patty Jara, 06-03 08:00:00 AM, [address] [place] [address], , [place], [address], Provider Name:Robbie Trimble 2021-06-05 11:30:00 AM, [address] [facility] [phone], [place], [address], Provider Name:Patty Jara, 06-16 03:00:00 PM, [address] [facility], , [place], [address], Provider Name:Robbie Trimble, 2021-06-19 08:15:00 AM, [address] [facility], , [place], [address], Insurance Providers Payer Name Payer Address Payer Phone Insured Name Patient Relati onship to Insured Coverage Start Date Coverage End Date [facility] PLAN [facility] [address] [facility] [address] SHAW MCCLELLAN self
--- OUTSIDE RECORDS SUMMARY | 2021-07-31 07:05 | CCD ---
Author Author [facility] Organization [facility] Address Unknown Phone Unavailable Care Team Providers Care Allergy Nurse Name Role Phone Robbie Trimble Unavailable PROBLEMS Type Condition ICD9-CM Code [id number] Code Onset Dates Condition S tatus W/U Status Risk SNOMED Code Notes Problem Multilevel degenerative disc disease M53.9 Act theresa confirmed 65921215 Problem Essential hypertension I10 Active confirmed 88752447 Problem Fibromyalgia M79.7 Active confirmed 2714709 7 Problem Gastroesophageal reflux disease without esophagitis K21.9 Active confirmed 799874492 Problem Acute myocardial infarction, unspecified site, episode of care unspecified 410.90 Active confirmed 19696202 Problem Mixed hyperlipidemia E78.2 Active confirmed 901470826 Problem Back pain, unspecified back location, unspecified back pain laterality, unspecified chronicity M54.9 Active confirmed 1628061 05 Problem Tobacco use disorder Z72.0 Active confirmed 92830014 Problem Chronic neck pain M54.2 Active confirmed 11 71372371875 Problem Ovarian mass, left N83.8 Active confirmed 1 1430351547990344 Problem Family hx of ovarian malignancy Z80.41 Active confi rmed 454108830 Problem Hx of hysterectomy Z90.710 Active confirmed 464736843 Problem Nicotine dependence, uncomplicated, unspecified nicotine product type F17.200 Active confirmed 29364226 Problem Paresthesia of skin R20.2 Active confirmed 09221274 Problem Anxiety state F41.1 Active confirmed 673303 003 Problem Iron deficiency anemia secondary to inadequate d ietary iron intake D50.8 Active confirmed 144898159 Problem Positive HAVEN (antinuclear antibody) R76.8 Acti ve confirmed 356818354 Problem Chronic back pain M54.9 Active confirmed 13 7990612 Problem Depressive disorder, not elsewhere classified F32. 9 Active confirmed 41012909 Problem Dyspareunia in female N94.10 Active confirmed 71626427 Problem Tobacco use disorder F17.200 Active confirmed 072699379 Problem Coronary artery disease I25.10 Active confirmed 15903304 Problem Pica in adults F50.89 Active confirmed 92318 003 ALLERGIES Allergen (clinical drug ingredient) Drug/Non Drug Allergy do cumented on EMR Reaction Allergy Type Onset Date Status ibuprofen Ibuprofen([facility] Code:[address]-62) Cannot take du e to gastric bypass Drug Allergy Active cephalexin Keflex([facility] Code:[address]-65) Rash Drug Allergy Active acetaminophen / oxycodone Percocet([facility] Code:[address]-48) Nause a/Vomiting Drug Allergy Active metoclopramide Reglan([facility] Code:[address]-70) Anxiety Drug Allergy Active ENCOUNTERS from 1967 to 2021-05-21 Encounter Location Date Provider Diagnosis [facility] [phone] [place] [address] May, Robbie Trimble IMMUNIZATIONS Vaccine Route Administration Date [...] Education Language: Question Answer Notes Languages spoken: Grenadian Anabaptism: Question Answer Notes Anabaptism 08 Mormon Drug and Alcohol Question Answer Notes Total [...] Information RESULTS No Results REASON FOR VISIT CANCEL 06/05/21 SURGERY MEDICAL (GENERAL) HISTORY Type Description Date Medical History Fibromyalgia Medical History Hypertension Medical History Cyst lt breast Medical History Elevated cholesterol Medical History Depression Medical History GERD Medical History [place]/CAD 2007 Medical History Antibody 1 lupus Surgical [...] 12/15/20 Hospitalization History Mi 2007 Hospitalization History [facility] overnight for overdose on tyleno l pm 02/22/2013 Hospitalization History [facility] ER-chest pain 06/25/16 Hospitalization History [facility]-ksrsj knee injury 11/07/16 Hospitalization History [facility]-Cemmeftmk LLL 03/18/18 Goals Section No Information Health Concerns No Information MEDICAL EQUIPMENT No Information MENTAL STATUS No Information FUNCTIONAL STATUS No Information ASSESSMENTS No Information PLAN OF TREATMENT Next Appt Details Provider Name:Patty Jara, 06-03 08:00:00 AM, [address], , [place], [address], Provider Name:Patty Jara 06-16 03:00:00 PM, [address], , [place], [address], Provider Name:Robbie Trimble 2021-06-19 08:15:00 AM, [address] [facility], , [place], [address], Insurance Providers Payer Name Payer Address Payer Phone Insured Name Patient Relati onship to Insured Coverage Start Date Coverage End Date [facility] PLAN [facility] [address] [facility] [address] SHAW MCCLELLAN self
--- OUTSIDE RECORDS SUMMARY | 2021-07-31 07:05 | CCD ---
Author Author [facility] Organization [facility] Address Unknown Phone Unavailable Care Team Providers Care Timber Treating Tank Operator Name Role Phone Patty Jara Unavailable PROBLEMS Type Condition ICD9-CM Code [id number] Code Onset Dates Condition S tatus W/U Status Risk SNOMED Code Notes Problem Gastroesophageal reflux disease without esophagitis K21.9 Active confirmed 785118619 Problem Multilevel degenerative disc disease M53.9 Act theresa confirmed 46248439 Problem Mixed hyperlipidemia E78.2 Active confirmed 165482960 Problem Fibromyalgia M79.7 Active confirmed 1531382 7 Problem Chronic neck pain M54.2 Active confirmed 11 05534981269 Problem Acute myocardial infarction, unspecified site, episode of care unspecified 410.90 Active confirmed 63572072 Problem Positive HAVEN (antinuclear antibody) R76.8 Acti ve confirmed 028239157 Problem Chronic back pain M54.9 Active confirmed 13 6959150 Problem Back pain, unspecified back location, unspecified back pain laterality, unspecified chronicity M54.9 Active confirmed 2612099 05 Problem Tobacco use disorder Z72.0 Active confirmed 86327353 Problem Tobacco use disorder F17.200 Active confirmed 449818236 Problem Family hx of ovarian malignancy Z80.41 Active confi rmed 980180898 Problem Hx of hysterectomy Z90.710 Active confirmed 884926456 Problem Iron deficiency anemia secondary to inadequate d ietary iron intake D50.8 Active confirmed 199571504 Problem Dyspareunia in female N94.10 Active confirmed 54767921 Problem Depressive disorder, not elsewhere classified F32. 9 Active confirmed 01075159 Problem Cigarette nicotine dependence without complication F17.210 Active confirmed 58070742 Problem Paresthesia of skin R20.2 Active confirmed 10321513 Problem Anxiety state F41.1 Active confirmed 388806 003 Problem Essential hypertension I10 Active confirmed 76253683 Problem Ovarian mass, left N83.8 Active confirmed 1 [id number] Problem Coronary artery disease I25.10 Active confirmed 79155589 Problem Pica in adults F50.89 Active confirmed 62927 003 Problem Nicotine dependence, uncomplicated, unspecified nicotine product type F17.200 Active confirmed 09755643 ALLERGIES Allergen (clinical drug ingredient) Drug/Non Drug Allergy do cumented on EMR Reaction Allergy Type Onset Date Status ibuprofen Ibuprofen([facility] Code:[address]-25) Cannot take du e to gastric bypass Drug Allergy Active cephalexin Keflex([facility] Code:[address]-75) Rash Drug Allergy Active acetaminophen / oxycodone Percocet([facility] Code:[address]-27) Nause a/Vomiting Drug Allergy Active metoclopramide Reglan([facility] Code:[address]-12) Anxiety Drug Allergy Active ENCOUNTERS from 1967 to 2021-06-30 Encounter Location Date Provider Diagnosis [facility] [phone] [place] [address] Jun, 2021 Patty Alberry Fibromyalgia M79.7 IMMUNIZATIONS Vaccine Route Administration Date Status Influenza [...] Education Language: Question Answer Notes Languages spoken: Icelandic Religious: Question Answer Notes Religious 08 Gnosticism Drug and Alcohol Question Answer Notes Total [...] Notes Start Da te End Date Status Gabapentin 300 MG 1 capsule Orally tid for 30 day(s) 2020 Active Famotidine 40 MG 1 tablet at bedtime Orally Once a day for 30 da y(s) Oct, Not-Taking Chantix Starting Month Michael 0.5 MG X 11 & 1 MG X 42 1 tab Ora lly as directed on 1 mg now Aug, Not-Taking Multivitamin Adult - 1 tablet Orally Once a day for 30 day(s) Active Lisinopril 5 MG TAKE 1 TABLET BY MOUTH EVERY NIGHT AT BEDTIME Oral Active Nitroglycerin 0.4 MG 1 tablet under the tongue Sublingual prn Chest pain CAD Active Rosuvastatin Calcium 20 MG TAKE 1 TABLET BY MOUTH EVERYDAY AT BEDTI ME Oral Active PriLOSEC 20 MG TAKE 1 CAPSULE BY MOUTH TWICE A DAY for 30 Not-Taking ALPRAZolam 0.25 MG 1 tablet Orally Daily anxiety Not-Taking Melatonin 5 MG 1 tablet in the evening Orally Once a day Not-Taking busPIRone HCl 10 MG 2 tablet Orally Twice a day anxiety Not-Taking hydrOXYzine HCl 50 MG 2-3 tablet as needed Orally before bedtime anxiety, sleep Not-Taking predniSONE 20 MG 2 tablet Orally Once a day for 5 Not-Taking Clopidogrel Bisulfate 75 MG 1 tablet Orally Once a day for 30 day(s) Active Aspirin 325 MG 1 tablet Orally Once a day CAD Not-Taking Cipro 500 MG 1 tablet Orally every 12 hrs for 10 day(s) Jul, Not-Taking Ferrous Sulfate 325 (65 Fe) MG 1 tablet Orally Once a day for 30 day(s) Mar, Active Sleep Aid Active Acetaminophen Active Viibryd 40 MG TAKE 1 TABLET BY MOUTH ONCE A DAY IN THE MORNING. Orally Once a day depression Not-Taking Simvastatin 20 MG 1 tablet in the evening Orally Once a da y hypercholesterolemia Not-Taking Gabapentin 400 MG 1 capsule Orally MDD 3 three times daily fibro myalgia Apr, Not-Taking Diclofenac Sodium 50 MG TAKE 1 [...] Information RESULTS No Results REASON FOR VISIT MRI of hip/increase gabapentin MEDICAL (GENERAL) HISTORY Type Description Date Medical [...] 12/15/20 Hospitalization History Mi 2007 Hospitalization History [facility] overnight for overdose on tyleno l pm 02/22/2013 Hospitalization History [facility] ER-chest pain 06/25/16 Hospitalization History [facility] knee injury 11/07/16 Hospitalization History [facility] 03/18/18 Hospitalization History Childbirth Goals Section No Information Health Concerns No Information MEDICAL EQUIPMENT No Information MENTAL STATUS No Information FUNCTIONAL STATUS No Information ASSESSMENTS Encounter Date Diagnosis Assessment Notes Treatment Notes Treatm ent Clinical Notes Jun, Fibromyalgia (ICD-10 - M79.7) PLAN OF TREATMENT Medication Medication Name Sig Start Date Stop Date Gabapentin 300 MG 1 capsule Orally tid for 30 day(s) May, Next Appt Details Provider Name:Patty Jara, 2020- 0 10:00:00 AM, [address] , , [place], [address], Provider Name:Robbie Trimble, 2021-07-31 08:45:00 AM, [address] [place] [address], , [place], [address], Provider Name:Robbie Trimble, 2021-08-17 09:00:00 AM, [address] [place] [address], , [place], [address], Insurance Providers Payer Name Payer Address Payer Phone Insured Name Patient Relati onship to Insured Coverage Start Date Coverage End Date [facility] [address] [facility] [address] SHAW MCCLELLAN self
--- OUTSIDE RECORDS SUMMARY | 2021-07-31 07:06 | CCD ---
Author Author [facility] Organization [facility] Address Unknown Phone Unavailable Care Team Providers Care Clutch Inspector Name Role Phone Patty Jara Unavailable PROBLEMS Type Condition ICD9-CM Code NPI06-JB Code Onset Dates Condition S tatus W/U Status Risk SNOMED Code Notes Problem Multilevel degenerative disc disease M53.9 Act theresa confirmed 84152030 Problem Essential hypertension I10 Active confirmed 25027283 Problem Fibromyalgia M79.7 Active confirmed 3686693 7 Problem Gastroesophageal reflux disease without esophagitis K21.9 Active confirmed 591314043 Problem Acute myocardial infarction, unspecified site, episode of care unspecified 410.90 Active confirmed 88084716 Problem Mixed hyperlipidemia E78.2 Active confirmed 215798918 Problem Back pain, unspecified back location, unspecified back pain laterality, unspecified chronicity M54.9 Active confirmed 4072121 05 Problem Tobacco use disorder Z72.0 Active confirmed 56612170 Problem Chronic neck pain M54.2 Active confirmed 11 49372471650 Problem Ovarian mass, left N83.8 Active confirmed 1 3373732313902683 Problem Family hx of ovarian malignancy Z80.41 Active confi rmed 644182525 Problem Hx of hysterectomy Z90.710 Active confirmed 734864861 Problem Nicotine dependence, uncomplicated, unspecified nicotine product type F17.200 Active confirmed 50615120 Problem Paresthesia of skin R20.2 Active confirmed 05542723 Problem Anxiety state F41.1 Active confirmed 139016 003 Problem Iron deficiency anemia secondary to inadequate d ietary iron intake D50.8 Active confirmed 068525782 Problem Positive HAVEN (antinuclear antibody) R76.8 Acti ve confirmed 631282545 Problem Chronic back pain M54.9 Active confirmed 13 0124047 Problem Depressive disorder, not elsewhere classified F32. 9 Active confirmed 92155265 Problem Dyspareunia in female N94.10 Active confirmed 79837418 Problem Tobacco use disorder F17.200 Active confirmed 573600136 Problem Coronary artery disease I25.10 Active confirmed 78489518 Problem Pica in adults F50.89 Active confirmed 65468 003 ALLERGIES Allergen (clinical drug ingredient) Drug/Non Drug Allergy do cumented on EMR Reaction Allergy Type Onset Date Status ibuprofen Ibuprofen([facility] Code:[address]-60) Cannot take du e to gastric bypass Drug Allergy Active cephalexin Keflex([facility] Code:[address]-52) Rash Drug Allergy Active acetaminophen / oxycodone Percocet([facility] Code:[address]-65) Nause a/Vomiting Drug Allergy Active metoclopramide Reglan([facility] Code:[address]-64) Anxiety Drug Allergy Active ENCOUNTERS from 1967 to 2021-05-07 Encounter Location Date Provider Diagnosis [address] [phone] [place] [address] Apr, Patty Jara Essential hypertension I10 and Gastroeso phageal reflux disease without esophagitis K21.9 IMMUNIZATIONS Vaccine Route Administration Date Status Influenza [...] Education Language: Question Answer Notes Languages spoken: Turkmen Scientology: Question Answer Notes Scientology 08 Alevism Drug and Alcohol Question Answer Notes Total [...] Information RESULTS No Results REASON FOR VISIT pre op appt MEDICAL (GENERAL) HISTORY Type Description Date Medical History Fibromyalgia Medical History Hypertension Medical History Cyst lt breast Medical History Elevated cholesterol Medical History Depression Medical History GERD Medical History [place]/CAD 2007 Medical History Antibody 1 lupus Surgical [...] 12/15/20 Hospitalization History Mi 2007 Hospitalization History [facility] overnight for overdose on tyleno l pm 02/22/2013 Hospitalization History [facility] ER-chest pain 06/25/16 Hospitalization History [facility] knee injury 11/07/16 Hospitalization History [facility] LLL 03/18/18 Goals Section No Information Health Concerns No Information MEDICAL EQUIPMENT No Information MENTAL STATUS No Information FUNCTIONAL STATUS No Information ASSESSMENTS Encounter Date Diagnosis Assessment Notes Treatment Notes Treatm ent Clinical Notes Apr, Essential hypertension (ICD-10 - I10) Apr, Gastroesophageal reflux dise ase without esophagitis (ICD-10 - K21.9) PLAN OF TREATMENT Future Test Test Name Order Date Comprehensive Metabolic Profile (CMP) [id number] Next Appt Details Provider Name:Robbie Trimble, 2021-05-20 08:00:00 AM, [address] [facility], , [place], [address], Provider Name:Patty Jara, 06-03 08:00:00 AM, [address] , , [place], [address], Provider Name:Robbie Trimble, 2021-06-05 11:30:00 AM, [address] [facility], , [place], [address], Provider Name:Patty Jara, 06-16 03:00:00 PM, [address] , , [place], [address], Provider Name:Robbie Trimble, 2021-06-19 08:15:00 AM, [address] [facility], , [place], [address], Insurance Providers Payer Name Payer Address Payer Phone Insured Name Patient Relati onship to Insured Coverage Start Date Coverage End Date [facility] [employer] [facility] [address] [facility] [address] SHAW MCCLELLAN self
--- OUTSIDE RECORDS SUMMARY | 2021-07-31 07:06 | CCD | Continuity of Care Document ---
Author Author [facility] , Lisa Chapin Organization Unknown Address [address] [facility] [place] [address] Phone [phone] Care Team Providers Care Restorative Art Embalmer Name Role Phone Chris StevensonC AUTM [phone] Candida Smith MD AUTM [phone] Cameron Aguilar MD AUTM [phone] Wolf Correa DO AUTM [phone] Patty Jara GENERAL SERVICE TECHNICIAN AUTM [phone] Problems Active Problems Provider Date Coronary arteriosclerosis Jo Boone PA-C Onset: 2013 Old myocardial infarction Jo Boone PA-C Onset: 2013 Essential hypertension NATALIIA Cunha-C Onset: 6 Pure hypercholesterolemia NATALIIA Cunha-C Onset: 2013 Cigarette smoker NATALIIA Cunha-C Onset: 09/27/2016 Syncope and collapse NATALIIA Cunha-C Onset: 08/24/2017 Paroxysmal supraventricular tachycardia NATALIIA Cunha-C Onset: 02/27/2018 Social History Type Date Description Comments Sex Unknown Tobacco Use Start: Unknown End: Unknown Former Cigarette Smo ker Smoked cigarettes x 25 years, up to 2ppd. Quit 01/2008. ETOH Use Does not consume alcohol Tobacco Use Start: Unknown Patient is a current smoker, smo kes every day started in 2011, currently smoking 1ppd Smoking Status Reviewed: 02/26/21 Patient is a current smoker, smokes every day started in 2011, currently smoking 1ppd Exercise Type/Frequency Does housework daily Exercise Type/Frequency Walks sporadically Exercise Limitations Fibromyalgia Exercise Limitations Back Pain Exercise Limitations Joint Pain Exercise Limitations Orthopedic Problem bilatera l feet Allergies, Adverse Reactions, Alerts Active Allergies Criticality Reaction | Severity Comments Date Keflex Unable to assess criticality rash, facial swelling 02/20/2008 Reglan Unable to assess criticality irratated,an xious 06/19/2010 Lipitor Unable to assess criticality nausea 09/08/2014 NSAIDs Unable to assess criticality gastric bypa ss patient 03/09/2015 Pravastatin Unable to assess criticality GI upset 03/25/2016 Ibuprofen Unable to assess criticality 09/27/2016 Medications Active Medications SIG Qnty Indications Ordering Provide r Date Lisinopril 5mg Tablets 1 by mouth every night at bedtime 90tabs I10 Chano Mederos MD 02/26/2021 I25.118 Rosuvastatin Calcium 20mg Tablets 1 by mouth every night at bedtime 90tabs E78.00 Chano Mederos MD 02/26/2021 I25.[address] 1 by mouth every day I25.118 Chano Mederos MD 02/26/2021 Nitrostat 0.4mg Tablets Sub 1 sl every 5min x3 as needed for chest pain 25tabs I25.118 Chano Mederos MD 03/06/2014 Tylenol Extra Strength 500mg Table ts As needed Unknown Immunizations Description No Information Available Vital Signs Date Vital Result Comment 05/08/2021 8:16am Weight 149.00 lb Height 67 inches 5'7" BMI (Body Mass Index) 23.3 kg/m2 02/26/2021 9:43am Weight 163.00 lb Home Weight 159lb Height 67 inches 5'7" BMI (Body Mass Index) 25.5 kg/m2 Heart Rate 84 /min Regular Respiratory Rate 16 /min BP Systolic Right Arm 144 mmHg sitting, regular c uff BP Diastolic Right Arm 80 mmHg sitting, regular cuff BP Systolic Left Arm 144 mmHg sitting BP Diastolic Left Arm 84 mmHg sitting Results Test Acquired Date Facility Test Result H/L Range Note Liver Function Test/ Liver Hep 12/14/2020 [facility] - not interfaced (315)- - Ast/Sgot 7 7-37 Alt/SGPT 16 30-65 Alk Phos 97 50-136 Albumin 3.8 3.2-5.2 Total Bilirubin 0.3 0.0-1.0 Total Protein 7.1 6.4-8.2 A/G Ratio 1.2 1.00-1.93 Laboratory test finding 12/14/2020 [facility] - not interf aced (315)- - Lipase 158 CBC without Differential 12/14/2020 [facility] - not inter faced (315)- - White Blood Count 10.8 High 4.0-10.0 Red Blood Count 4.35 4.00-5.40 Platelets 228 150-450 Hemoglobin 12.1 Hematocrit 37.9 Procedures Date Code Description Status 05/08/2021 52568 Stress Echocardiography Complete d 05/08/2021 18519 Doppler Color Flow Velocity Zeke ing Completed 02/26/2021 57254 Smoking & Tobacco Ce ssation Counseling Visit Intermediate 3-10Min Completed 02/26/2021 67260 Office/Outpatient Established Mo d MDM 30-39 Min Completed 02/26/2021 28847 ECG 12-Lead Completed Medical Devices Description No Information Available Encounters Type Date Location Provider Dx Diagnosis Office Visit 02/26/2021 9:45a Main Office Jo Boone PA-C I25.1 18 Athscl heart disease [place] cor art w oth ang pctrs I25.2 Old myocardial infarction I10 Essential (primary) hyperten aline I47.1 Supraventricular tachycardia E78.00 Pure hypercholesterolemia, u nspecified F17.218 Nicotine dependence, cigaret jamir, w oth disorders Z87.891 Personal history of nicotine dependence Z71.6 Tobacco abuse counseling Assessments Date Code Description Provider 05/08/2021 R06.02 Shortness of breath Stress Nucle ar/Reg Treadmill 05/08/2021 I25.118 Atherosclerotic hear t disease [place] coronary artery with other forms of angina pectoris Stress Nuclear/Reg Treadmill 02/26/2021 I25.118 Atherosclerotic hear t disease [place] coronary artery with other forms of angina pectoris Jo Boone PA-C 02/26/2021 I25.2 Old myocardial infarction Jo Boone PA-C 02/26/2021 I10 Essential (primary) hypertension Jo Boone PA-C 02/26/2021 I47.1 Supraventricular tachycardia Aydee Boone PA-C 02/26/2021 E78.00 Pure hypercholesterolemia, unspe cified Jo Boone PA-C 02/26/2021 F17.218 Nicotine dependence, cigarettes, with other nicotine-induced Jo Boone PA-C 02/26/2021 Z87.891 Personal history of nicotine dep endence Jo Boone PA-C 02/26/2021 Z71.6 Tobacco abuse counseling Jo Boone PA-C Plan of Treatment Future Appointment(s):* 08/28/2021 1:00 pm - Jo Boone PA-C at Main Office 02/26/2021 - Jo Boone PA-C* I25.118 Atherosclerotic heart disease of [place] coronary artery with other forms of angina pectoris* New Medication:* Lisinopril 5 mg - 1 by mouth every night at bedtime * Rosuvastatin Calcium 20 mg - 1 by mouth every night at bedtime * Aspirin 81 mg - 1 by mouth every day * New Labs:* Comprehensive Metabolic Profil, Scheduled: 05/04/21 * Lipid Panel, Scheduled: 05/04/21 * Recommendations:* 1. Start aspirin 81 mg one pill every day. 2. Start rosuvastatin 20 mg one pill every evening. 3. Start taking lisinopril 5 mg one pill every evening. 4. Do fasting lab work in about 2 months. * I25.2 Old myocardial infarction * I10 Essential (primary) hypertension* New Medication:* Lisinopril 5 mg - 1 by mouth every night at bedtime * New Labs:* Comprehensive Metabolic Profil, Scheduled: 05/04/21 * I47.1 Supraventricular tachycardia * E78.00 Pure hypercholesterolemia, unspecified* New Medication:* Rosuvastatin Calcium 20 mg - 1 by mouth every night at bedtime * New Labs:* Comprehensive Metabolic Profil, Scheduled: 05/04/21 * Lipid Panel, Scheduled: 05/04/21 * F17.218 Nicotine dependence, cigarettes, with other nicotine-induced* Recommendations:* Smoke cessation is crucial. * Z87.891 Personal history of nicotine dependence * Z71.6 Tobacco abuse counseling * All * Follow up:* 6 month follow up. 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 [place] Cr [place]ated [address] [facility] [address] [phone]
--- OUTSIDE RECORDS SUMMARY | 2021-07-31 07:06 | CCD ---
Author Author [facility] Organization [facility] Address Unknown Phone Unavailable Support Name Relationship Address Phone SELF Next Of Kin Unknown Unavailable DOORDASH Next Of Kin [id number] [place] [address] CHAYITO RAIN Next Of Kin [address] [place] [address] STEPHANIE TARANGO Next Of Kin [address] [facility] [address] [place] [address] ELEUTERIO LISA Next Of Kin [address] [place] [address] Meri Ac Next Of Kin [address] [facility] [place] [address] [address] BARB TARANGO Next Of Kin [address] [facility] [address] [place] [address] CHAYITO HARTMAN Next Of Kin [address] [place] [address] JACOBO HARTMAN Next Of Kin Unknown [facility]* Next Of Kin [address] [place] [address] [facility] Next Of Kin [address] [place] [address] UE Next Of Kin Unknown Unavailable CARFRESH Next Of Kin [address] [place] [address] [facility]* Next Of Kin [address] [place] [address] UNEMPLOYED Next Of Kin Unknown JENN AGUILERA Next Of Kin [address] [place] [address] [facility] Next Of Kin [address] [place] [address] JENN YADAV Next Of Kin [address] [place], [place] [id number] JULIO, CHIQUI Next Of Kin [address] [place], [place] [id number] [facility] Next Of Kin Unknown Unavailable ANGELIQUE ZHAO Next [place] [address] Chayito Hartamn ECON [address] [place] [address] [phone] Care Team Providers Care Inbound Telemarketer Name Role Phone Alberry, D Patty MANAGER INTERVENTIONAL Unavailable Unavailable Alberry, D Patty MANAGER INTERVENTIONAL Unavailable Unavailable Alberry, D Patty MANAGER INTERVENTIONAL Unavailable Unavailable Alberry, D Patty MANAGER INTERVENTIONAL Unavailable Unavailable Alberry, D Patty MANAGER INTERVENTIONAL Unavailable Unavailable Alberry, D Patty MANAGER INTERVENTIONAL Unavailable Unavailable Alberry, D Patty MANAGER INTERVENTIONAL Unavailable Unavailable Alberry, D Patty MANAGER INTERVENTIONAL Unavailable Unavailable Alberry, D Patty MANAGER INTERVENTIONAL Unavailable Unavailable Alberry, D Patty MANAGER INTERVENTIONAL Unavailable Unavailable Alberry, D Patty MANAGER INTERVENTIONAL Unavailable Unavailable Alberry, D Patty MANAGER INTERVENTIONAL Unavailable Unavailable Alberry, D Patty MANAGER INTERVENTIONAL Unavailable Unavailable Alberry, D Patty MANAGER INTERVENTIONAL Unavailable Unavailable Alberry, D Patty MANAGER INTERVENTIONAL Unavailable Unavailable Alberry, D Patty MANAGER INTERVENTIONAL Unavailable Unavailable Alberry, D Patty MANAGER INTERVENTIONAL Unavailable Unavailable Alberry, D Patty MANAGER INTERVENTIONAL Unavailable Unavailable Alberry, D Patty MANAGER INTERVENTIONAL Unavailable Unavailable Alberry, D Patty MANAGER INTERVENTIONAL Unavailable Unavailable Alberry, D Patty MANAGER INTERVENTIONAL Unavailable Unavailable Alberry, D Patty MANAGER INTERVENTIONAL Unavailable Unavailable Alberry, D Patty MANAGER INTERVENTIONAL Unavailable Unavailable Alberry, D Patty MANAGER INTERVENTIONAL Unavailable Unavailable Alberry, D Patty MANAGER INTERVENTIONAL Unavailable Unavailable Alberry, D Patty MANAGER INTERVENTIONAL Unavailable Unavailable Alberry, D Patty MANAGER INTERVENTIONAL Unavailable Unavailable Alberry, D Patty MANAGER INTERVENTIONAL Unavailable Unavailable Alberry, D Patty MANAGER INTERVENTIONAL Unavailable Unavailable Alberry, D Patty MANAGER INTERVENTIONAL Unavailable Unavailable Alberry, D Patty MANAGER INTERVENTIONAL Unavailable Unavailable Alberry, D Patty MANAGER INTERVENTIONAL Unavailable Unavailable Alberry, D Patty MANAGER INTERVENTIONAL Unavailable Unavailable Alberry, D Patty MANAGER INTERVENTIONAL Unavailable Unavailable Alberry, D Patty MANAGER INTERVENTIONAL Unavailable Unavailable Alberry, D Patty MANAGER INTERVENTIONAL Unavailable Unavailable Alberry, D Patty MANAGER INTERVENTIONAL Unavailable Unavailable Alberry, D Patty MANAGER INTERVENTIONAL Unavailable Unavailable Alberry, D Patty MANAGER INTERVENTIONAL Unavailable Unavailable Alberry, D Patty MANAGER INTERVENTIONAL Unavailable Unavailable Alberry, D Patty MANAGER INTERVENTIONAL Unavailable Unavailable Alberry, D Patty MANAGER INTERVENTIONAL Unavailable Unavailable Alberry, D Patty MANAGER INTERVENTIONAL Unavailable Unavailable Alberry, D Patty MANAGER INTERVENTIONAL Unavailable Unavailable Alberry, D Patty MANAGER INTERVENTIONAL Unavailable Unavailable Alberry, D Patty MANAGER INTERVENTIONAL Unavailable Unavailable Alberry, D Patty MANAGER INTERVENTIONAL Unavailable Unavailable Alberry, D Patty MANAGER INTERVENTIONAL Unavailable Unavailable Alberry, D Patty MANAGER INTERVENTIONAL Unavailable Unavailable Alberry, D Patty MANAGER INTERVENTIONAL Unavailable Unavailable Alberry, D Patty MANAGER INTERVENTIONAL Unavailable Unavailable Alberry, D Patty MANAGER INTERVENTIONAL Unavailable Unavailable Alberry, D Patty MANAGER INTERVENTIONAL Unavailable Unavailable Alberry, D Patty MANAGER INTERVENTIONAL Unavailable Unavailable Alberry, D Patty MANAGER INTERVENTIONAL Unavailable Unavailable Connie, A Jay Jay MONSIVAIS Unavailable Unavailable Connie, A Jay Jay MONSIVAIS Unavailable Unavailable Connie, A Jay Jay MONSIVAIS Unavailable Unavailable Connie, A Jay Jay MONSIVAIS Unavailable Unavailable Connie, A Jay Jay MONSIVAIS Unavailable Unavailable Connie, A Jay Jay MONSIVAIS Unavailable Unavailable Connie, A Jay Jay MONSIVAIS Unavailable Unavailable Connie, Chapin Goyal MD Unavailable Unavailable Connie, Chapin Goyal MD Unavailable Unavailable Connie, Chapin Goyal MD Unavailable Unavailable Connie, Chapin Goyal MD Unavailable Unavailable Connie, A Jay Jay MONSIVAIS Unavailable Unavailable Connie, A Jay Jay MONSIVAIS Unavailable Unavailable Connie, Chapin Goyal MD Unavailable Unavailable Connie, Chapin Goyal MD Unavailable Unavailable Connie, Chapin Goyal MD Unavailable Unavailable Connie, Chapin Goyal MD Unavailable Unavailable Connie, Chapin Goyal MD Unavailable Unavailable Connie, A Jay Jay MONSIVAIS Unavailable Unavailable Connie, Chapin Goyal MD Unavailable Unavailable Connie, A Jay Jay MONSIVAIS Unavailable Unavailable Connie, Chapin Goyal MD Unavailable Unavailable Connie, Chapin Goyal MD Unavailable Unavailable Connie, Chapin Goyal MD Unavailable Unavailable Connie, Chapin Goyal MD Unavailable Unavailable Connie, Chapin Goyal MD Unavailable Unavailable Connie, Chapin Goyal MD Unavailable Unavailable Connie, Chapin Goyal MD Unavailable Unavailable Connie, Chapin Goyal MD Unavailable Unavailable Connie, Chapin Goyal MD Unavailable Unavailable Connie, Chapin Goyal MD Unavailable Unavailable Connie, Chapin Goyal MD Unavailable Unavailable Connie, Chapin Goyal MD Unavailable Unavailable Connie, A Jay Jay MONSIVAIS Unavailable Unavailable Connie, Chapin Goyal MD Unavailable Unavailable Connie, Chapin Goyal MD Unavailable Unavailable Connie, A Jay Jay MD Unavailable Unavailable Connie, A Jay Jay MD Unavailable Unavailable Connie, A Jay Jay MD Unavailable Unavailable Connie, A Jay Jay MD Unavailable Unavailable Connie, A Jay Jay MD Unavailable Unavailable Connie, A Jay Jay MD Unavailable Unavailable Connie, A Jay Jay MD Unavailable Unavailable Connie, A Jay Jay MD Unavailable Unavailable Connie, A Jay Jay MD Unavailable Unavailable Connie, A Jay Jay MD Unavailable Unavailable Connie, A Jay Jay MD Unavailable Unavailable Connie, A Jay Jay MD Unavailable Unavailable Connie, A Jay Jay MD Unavailable Unavailable Connie, A Jay Jay MD Unavailable Unavailable Connie, A Jay Jay MD Unavailable Unavailable Connie, A Jay Jay MD Unavailable Unavailable Connie, A Jay Jay MD Unavailable Unavailable Connie, A Jay Jay MD Unavailable Unavailable Connie, A Jay Jay MD Unavailable Unavailable Connie, A Jay Jay MD Unavailable Unavailable Connie, A Jay Jay MD Unavailable Unavailable Connie, A Jay Jay MD Unavailable Unavailable Connie, A Jay Jay MD Unavailable Unavailable Connie, A Jay Jay MD Unavailable Unavailable Connie, A Jay Jay MD Unavailable Unavailable Connie, A Jay Jay MD Unavailable Unavailable Connie, A Jay Jay MD Unavailable Unavailable Connie, A Jay Jay MD Unavailable Unavailable Connie, A Jay Jay MD Unavailable Unavailable Connie, A Jay Jay MD Unavailable Unavailable Connie, A Jay Jay MD Unavailable Unavailable Connie, A Jay Jay MD Unavailable Unavailable Connie, A Jay Jay MD Unavailable Unavailable Connie, A Jay Jay MD Unavailable Unavailable Connie, A Jay Jay MD Unavailable Unavailable Connie, A Jay Jay MD Unavailable Unavailable Connie, A Jay Jay MD Unavailable Unavailable Connie, A Jay Jay MD Unavailable Unavailable Connie, A Jay Jay MD Unavailable Unavailable Connie, A Jay Jay MD Unavailable Unavailable Connie, A Jay Jay MD Unavailable Unavailable Symenow, Naomi Jo PA Unavailable Unavailable Symenow, Naomi Jo PA Unavailable Unavailable Symenow, Naomi Jo PA Unavailable Unavailable Symenow, Naomi Jo PA Unavailable Unavailable Symenow, Naomi Jo PA Unavailable Unavailable Symenow, Naomi Jo PA Unavailable Unavailable Symenow, Naomi Jo PA Unavailable Unavailable Symenow, Naomi Jo PA Unavailable Unavailable Symenow, Naomi Jo PA Unavailable Unavailable Symenow, Naomi Jo PA Unavailable Unavailable Symenow, Naomi Jo PA Unavailable Unavailable Symenow, Naomi Jo PA Unavailable Unavailable Symenow, Naomi Jo PA Unavailable Unavailable Symenow, Naomi Jo PA Unavailable Unavailable Symenow, Naomi Jo PA Unavailable Unavailable Symenow, Naomi Jo PA Unavailable Unavailable Symenow, Naomi Jo PA Unavailable Unavailable Symenow, Naomi Jo PA Unavailable Unavailable Symenow, Naomi Jo PA Unavailable Unavailable Symenow, Naomi Jo PA Unavailable Unavailable Symenow, Naomi Jo PA Unavailable Unavailable Symenow, Naomi Jo PA Unavailable Unavailable Symenow, Naomi Jo PA Unavailable Unavailable Symenow, Naomi Jo PA Unavailable Unavailable Symenow, Naomi Jo PA Unavailable Unavailable Symenow, Naomi Jo PA Unavailable Unavailable Symenow, Naomi Jo PA Unavailable Unavailable Symenow, Naomi Jo PA Unavailable Unavailable Symenow, Naomi Jo PA Unavailable Unavailable Symenow, Naomi Jo PA Unavailable Unavailable Symenow, Naomi Jo PA Unavailable Unavailable Symenow, Naomi Jo PA Unavailable Unavailable Symenow, Naomi Jo PA Unavailable Unavailable Symenow, Naomi Jo PA Unavailable Unavailable Emilia KAT MD Unavailable Unavailable Emilia KAT MD Unavailable Unavailable Emilia KAT MD Unavailable Unavailable Emilia KAT MD Unavailable Unavailable Emilia KAT MD Unavailable Unavailable Emilia KAT MD Unavailable Unavailable Emilia KAT MD Unavailable Unavailable Emilia KAT MD Unavailable Unavailable Emilia KTA MD Unavailable Unavailable Emilia KAT MD Unavailable Unavailable Emilia KAT MD Unavailable Unavailable Emilia KAT MD Unavailable Unavailable Emilia KAT MD Unavailable Unavailable Emilia KAT MD Unavailable Unavailable Emliia KAT MD Unavailable Unavailable Emilia KAT MD Unavailable Unavailable Emilia KAT MD Unavailable Unavailable Emilia KAT MD Unavailable Unavailable Emilia KAT MD Unavailable Unavailable Emilia KAT MD Unavailable Unavailable Emilia KAT MD Unavailable Unavailable Emilia KAT MD Unavailable Unavailable Emilia KAT MD Unavailable Unavailable Emilia KAT MD Unavailable Unavailable Emilia KAT MD Unavailable Unavailable Emilia KAT MD Unavailable Unavailable Emilia KAT MD Unavailable Unavailable Emilia KAT MD Unavailable Unavailable Emilia KAT MD Unavailable Unavailable Emilia KAT MD Unavailable Unavailable Emilia KAT MD Unavailable Unavailable Emilia KAT MD Unavailable Unavailable Emilia KAT MD Unavailable Unavailable Emilia KAT MD Unavailable Unavailable Emilia KAT MD Unavailable Unavailable Emilia KAT MD Unavailable Unavailable Emilia KAT MD Unavailable Unavailable Emilia KAT MD Unavailable Unavailable Emilia KAT MD Unavailable Unavailable Emilia KAT MD Unavailable Unavailable Emilia KAT MD Unavailable Unavailable Emilia KAT MD Unavailable Unavailable Emilia KAT MD Unavailable Unavailable Emilia KAT MD Unavailable Unavailable Emilia KAT MD Unavailable Unavailable HANIFIN, M CHAZ PA Unavailable Unavailable HANIFIN, M CHAZ PA Unavailable Unavailable HANIFIN, M CHAZ PA Unavailable Unavailable HANIFIN, M CHAZ PA Unavailable Unavailable HANIFIN, M CHAZ PA Unavailable Unavailable HANIFIN, M CHAZ PA Unavailable Unavailable HANIFIN, M CHAZ PA Unavailable Unavailable HANIFIN, M CHAZ PA Unavailable Unavailable HANIFIN, M CHAZ PA Unavailable Unavailable HANIFIN, M CHAZ PA Unavailable Unavailable HANIFIN, M CHAZ PA Unavailable Unavailable HANIFIN, M CHAZ PA Unavailable Unavailable HANIFIN, M CHAZ PA Unavailable Unavailable HANIFIN, M CHAZ PA Unavailable Unavailable HANIFIN, M CHAZ PA Unavailable Unavailable HANIFIN, M CHAZ PA Unavailable Unavailable HANIFIN, M CHAZ PA Unavailable Unavailable HANIFIN, M CHAZ PA Unavailable Unavailable HANIFIN, M CHAZ PA Unavailable Unavailable HANIFIN, M CHAZ PA Unavailable Unavailable HANIFIN, M CHAZ PA Unavailable Unavailable HANIFIN, M CHAZ PA Unavailable Unavailable HANIFIN, M CHAZ PA Unavailable Unavailable HANIFIN, M CHAZ PA Unavailable Unavailable HANIFIN, M CHAZ PA Unavailable Unavailable HANIFIN, M CHAZ PA Unavailable Unavailable HANIFIN, M CHAZ PA Unavailable Unavailable HANIFIN, M CHAZ PA Unavailable Unavailable HANIFIN, M CHAZ PA Unavailable Unavailable HANIFIN, M CHAZ PA Unavailable Unavailable HANIFIN, M CHAZ PA Unavailable Unavailable HANIFIN, M CHAZ PA Unavailable Unavailable HANIFIN, M CHAZ PA Unavailable Unavailable HANIFIN, M CHAZ PA Unavailable Unavailable HANIFIN, M CHAZ PA Unavailable Unavailable HANIFIN, M CHAZ PA Unavailable Unavailable HANIFIN, M CHAZ PA Unavailable Unavailable HANIFIN, M CHAZ PA Unavailable Unavailable HANIFIN, M CHAZ PA Unavailable Unavailable HANIFIN, M CHAZ PA Unavailable Unavailable HANIFIN, M CHAZ PA Unavailable Unavailable HANIFIN, M CHAZ PA Unavailable Unavailable HANIFIN, M CHAZ PA Unavailable Unavailable HANIFIN, M CHAZ PA Unavailable Unavailable HANIFIN, M CHAZ PA Unavailable Unavailable HANIFIN, M CHAZ PA Unavailable Unavailable HANIFIN, M CHAZ PA Unavailable Unavailable HANIFIN, M CHAZ PA Unavailable Unavailable HANIFIN, M CHAZ PA Unavailable Unavailable HANIFIN, M CHAZ PA Unavailable Unavailable HANIFIN, M CHAZ PA Unavailable Unavailable HANIFIN, M CHAZ PA Unavailable Unavailable HANIFIN, M CHAZ PA Unavailable Unavailable HANIFIN, M CHAZ PA Unavailable Unavailable DRAZEK, I FRACISCO PA Unavailable Unavailable DRAZEK, I FRACISCO PA Unavailable Unavailable DRAZEK, I FRACISCO PA Unavailable Unavailable DRAZEK, I FRACISCO PA Unavailable Unavailable DRAZEK, I FRACICSO PA Unavailable Unavailable DRAZEK, I FRACISCO PA Unavailable Unavailable DRAZEK, I FRACISCO PA Unavailable Unavailable DRAZEK, I FRACISCO PA Unavailable Unavailable DRAZEK, I FRACISCO PA Unavailable Unavailable DRAZEK, I FRACISCO PA Unavailable Unavailable DRAZEK, I FRACISCO PA Unavailable Unavailable DRAZEK, I FRACISCO PA Unavailable Unavailable DRAZEK, I FRACISCO PA Unavailable Unavailable DRAZEK, I FRACISCO PA Unavailable Unavailable DRAZEK, I FRACISCO PA Unavailable Unavailable DRAZEK, I FRACISCO PA Unavailable Unavailable DRAZEK, I FRACISCO PA Unavailable Unavailable DRAZEK, I FRACISCO PA Unavailable Unavailable DRAZEK, I FRACISCO PA Unavailable Unavailable DRAZEK, I FRACISCO PA Unavailable Unavailable DRAZEK, I FRACISCO PA Unavailable Unavailable DRAZEK, I FRACISCO PA Unavailable Unavailable DRAZEK, I FRACISCO PA Unavailable Unavailable DRAZEK, I FRACISCO PA Unavailable Unavailable DRAZEK, I FRACISCO PA Unavailable Unavailable DRAZEK, I FRAICSCO PA Unavailable Unavailable DRAZEK, I FRACISCO PA Unavailable Unavailable DRAZEK, I FRACISCO PA Unavailable Unavailable DRAZEK, I FRACISCO PA Unavailable Unavailable DRAZEK, I FRACISCO PA Unavailable Unavailable Shayne ARORA SYEDA MONSIVAIS Unavailable Unavailable HAHER R SYEDA MONSIVAIS Unavailable Unavailable HAHER, R SYEDA MONSIVAIS Unavailable Unavailable HAHER, R SYEDA MONSIVAIS Unavailable Unavailable HAHER, R SYEDA MONSIVAIS Unavailable Unavailable HAHER, R SYEDA MONSIVAIS Unavailable Unavailable HAHER, R SYEDA MONSIVAIS Unavailable Unavailable HAHER, R SYEDA MONSIVAIS Unavailable Unavailable HAHER, R SYEDA MONSIVAIS Unavailable Unavailable HAHER, R SYEDA MONSIVAIS Unavailable Unavailable HAHER, R SYEDA MONSIVAIS Unavailable Unavailable HAHER, R SYEDA MONSIVAIS Unavailable Unavailable HAHER, R SYEDA MONSIVAIS Unavailable Unavailable HAHER, R SYEDA MONSIVAIS Unavailable Unavailable HAHER, R SYEDA MONSIVAIS Unavailable Unavailable HAHER, R SYEDA MONSIVAIS Unavailable Unavailable HAHER, R SYEDA MONSIVAIS Unavailable Unavailable HAHER, R SYEDA MONSIVAIS Unavailable Unavailable HAHER, R SYEDA MONSIVAIS Unavailable Unavailable HAHER R SYEDA MONSIVAIS Unavailable Unavailable HA, R SYEDA MONSIVAIS Unavailable Unavailable HAHER R SYEDA MONSIVAIS Unavailable Unavailable HAHER R SYEDA MONSIVAIS Unavailable Unavailable HAHER R SYEDA MONSIVAIS Unavailable Unavailable HAHER R SYEDA MONSIVAIS Unavailable Unavailable HAHER R SYEDA MONSIVAIS Unavailable Unavailable HAHER R SYEDA MONSIVAIS Unavailable Unavailable HAHER R SYEDA MONSIVAIS Unavailable Unavailable HAHER R SYEDA MONSIVAIS Unavailable Unavailable HAHER R SYEDA MONSIVAIS Unavailable Unavailable HAHER R SYEDA MONSIVAIS Unavailable Unavailable HAShayne ATKINS MD Unavailable Unavailable HAHER R SYEDA MONSIVAIS Unavailable Unavailable HAHER R SYEDA MONSIVAIS Unavailable Unavailable HAHER R SYEDA MONSIVAIS Unavailable Unavailable HAHER R SYEDA MONSIVAIS Unavailable Unavailable HAHER R SYEDA MONSIVAIS Unavailable Unavailable HAHER R SYEDA MONSIVAIS Unavailable Unavailable HAHER R SYEDA MONSIVAIS Unavailable Unavailable HAHER R SYEDA MONSIVAIS Unavailable Unavailable HAHER R SYEDA MONSIVAIS Unavailable Unavailable HAHER R SYEDA MONSIVAIS Unavailable Unavailable HAHER R SYEDA MONSIVAIS Unavailable Unavailable HAHER R SYEDA MONSIVAIS Unavailable Unavailable HAHER R SYEDA MONSIVAIS Unavailable Unavailable HAHER R SYEDA MONSIVAIS Unavailable Unavailable HAHER R SYEDA MONSIVAIS Unavailable Unavailable HAHER R SYEDA MONSIVAIS Unavailable Unavailable HAHER R SYEDA MONSIVAIS Unavailable Unavailable HAHER R SYEDA MONSIVAIS Unavailable Unavailable HAHER R SYEDA MONSIVAIS Unavailable Unavailable HAHER R SYEDA MONSIVAIS Unavailable Unavailable HAHER R SYEDA MONSIVAIS Unavailable Unavailable HAHER R SYEDA MONSIVAIS Unavailable Unavailable HAHER R SYEDA MONSIVAIS Unavailable Unavailable HAHER R SYEDA MONSIVAIS Unavailable Unavailable HAHER R SYEDA MONSIVAIS Unavailable Unavailable HAHER R SYEDA MONSIVAIS Unavailable Unavailable HAHER R SYEDA MONSIVAIS Unavailable Unavailable HAHER R SYEDA MONSIVAIS Unavailable Unavailable HAHER R SYEDA MONSIVAIS Unavailable Unavailable HAHER R SYEDA MONSIVAIS Unavailable Unavailable HAHER R SYEDA MONSIVAIS Unavailable Unavailable HAHER R SYEDA MONSIVAIS Unavailable Unavailable HAHER R SYEDA MONSIVAIS Unavailable Unavailable HAHER, R SYEDA MONSIVAIS Unavailable Unavailable HA, R SYEDA MONSIVAIS Unavailable Unavailable HA, R SYEDA MONSIVAIS Unavailable Unavailable HA, R SYEDA MONSIVAIS Unavailable Unavailable HA, R SYEDA MONSIVAIS Unavailable Unavailable HA, R SYEDA MD Unavailable Unavailable JAREN S AYMAN MD Unavailable Unavailable JAREN, S AYMAN MD Unavailable Unavailable JAREN, S AYMAN MD Unavailable Unavailable JAREN, S AYMAN MD Unavailable Unavailable JAREN, S AYMAN MD Unavailable Unavailable JAREN, S AYMAN MD Unavailable Unavailable JAREN, S AYMAN MD Unavailable Unavailable JAREN, S AYMAN MD Unavailable Unavailable JAREN S AYDEMETRIUS MONSIVAIS Unavailable Unavailable JAREN S AYDEMETRIUS MONSIVAIS Unavailable Unavailable JAREN S AYMAN MD Unavailable Unavailable JAREN S AYDEMETRIUS MD Unavailable Unavailable JAREN S AYMAN MD Unavailable Unavailable JAREN S AYDEMETRIUS MONSIVAIS Unavailable Unavailable JAREN S AYDEMETRIUS MONSIVAIS Unavailable Unavailable JAREN S AYDEMETRIUS MD Unavailable Unavailable JAREN S AYMAN MD Unavailable Unavailable JAREN S AYMAN MD Unavailable Unavailable JAREN S AYDEMETRIUS MONSIVAIS Unavailable Unavailable JAREN, S AYDEMETRIUS MONSIVAIS Unavailable Unavailable JAREN, S AYDEMETRIUS MONSIVAIS Unavailable Unavailable JAREN S AYDEMETRIUS MD Unavailable Unavailable JAREN S AYDEMETRIUS MD Unavailable Unavailable JAREN S AYMAN MD Unavailable Unavailable JAREN, S AYDEMETRIUS MONSIVAIS Unavailable Unavailable JAREN, S AYDEMETRIUS MONSIVAIS Unavailable Unavailable JAREN, S AYDEMETRIUS MONSIVAIS Unavailable Unavailable JAREN S AYMAN MD Unavailable Unavailable JAREN S AYMAN MD Unavailable Unavailable JAREN S AYMAN MD Unavailable Unavailable JAREN S AYMAN MD Unavailable Unavailable JAREN, S AYMAN MD Unavailable Unavailable JAREN S AYMAN MD Unavailable Unavailable JAREN, S AYMAN MD Unavailable Unavailable JAREN, S AYMAN MD Unavailable Unavailable JAREN S AYMAN MD Unavailable Unavailable JAREN, S AYMAN MD Unavailable Unavailable JAREN S AYMAN MD Unavailable Unavailable JAREN, S AYMAN MD Unavailable Unavailable JAREN, S AYMAN MD Unavailable Unavailable JAERN, S AYMAN MD Unavailable Unavailable JAREN, S AYMAN MD Unavailable Unavailable JAREN, S AYMAN MD Unavailable Unavailable JAREN, S AYMAN MD Unavailable Unavailable JAREN, S AYMAN MD Unavailable Unavailable JAREN, S AYMAN MD Unavailable Unavailable JAREN, S AYMAN MD Unavailable Unavailable JAREN, S AYMAN MD Unavailable Unavailable JAREN, S AYMAN MD Unavailable Unavailable JAREN, S AYMAN MD Unavailable Unavailable JAREN, S AYMAN MD Unavailable Unavailable JAREN, S AYMAN MD Unavailable Unavailable JAREN, S AYMAN MD Unavailable Unavailable JAREN, S AYMAN MD Unavailable Unavailable JAREN, S AYMAN MD Unavailable Unavailable JAREN, S AYMAN MD Unavailable Unavailable JAREN, S AYMAN MD Unavailable Unavailable JAREN, S AYMAN MD Unavailable Unavailable JAREN, S AYMAN MD Unavailable Unavailable JAREN, S AYMAN MD Unavailable Unavailable JAREN, S AYMAN MD Unavailable Unavailable JAREN, S AYMAN MD Unavailable Unavailable JAREN, S AYMAN MD Unavailable Unavailable JAREN, S AYMAN MD Unavailable Unavailable JAREN, S AYMAN MD Unavailable Unavailable JAREN, S AYMAN MD Unavailable Unavailable JAREN, S AYMAN MD Unavailable Unavailable JAREN, S AYMAN MD Unavailable Unavailable JAREN, S AYMAN MD Unavailable Unavailable JAREN, S AYMAN MD Unavailable Unavailable JAREN, S AYMAN MD Unavailable Unavailable JAREN, S AYMAN MD Unavailable Unavailable JAREN, S AYMAN MD Unavailable Unavailable JAREN, S AYMAN MD Unavailable Unavailable JAREN, S AYMAN MD Unavailable Unavailable JAREN, S AYMAN MD Unavailable Unavailable JAREN, S AYMAN MD Unavailable Unavailable JAREN, S AYMAN MD Unavailable Unavailable JAREN, S AYMAN MD Unavailable Unavailable JAREN, S AYMAN MD Unavailable Unavailable JAREN, S AYMAN MD Unavailable Unavailable JAREN, S AYMAN MD Unavailable Unavailable JAREN, S AYMAN MD Unavailable Unavailable JAREN, S AYMAN MD Unavailable Unavailable JAREN, S AYMAN MD Unavailable Unavailable JAREN, S AYMAN MD Unavailable Unavailable Jermaine MANLEY MD Unavailable Unavailable Re-disclosure Warning The records that you are about to access may contain information from federally-assisted alcohol or drug abuse programs. If such information is present, then the following federally mandated warning applies: This information has been disclosed to you from records protected by federal confidentiality rules (42 CFR part 2). The federal rules prohibit you from making any further disclosure of this information unless further disclosure is expressly permitted by the written consent of the person to whom it pertains or as otherwise permitted by 42 CFR part 2. A general authorization for the release of medical or other information is NOT sufficient for this purpose. The Federal rules restrict any use of the information to criminally investigate or prosecute any alcohol or drug abuse patient.The records that you are about to access may contain highly sensitive health information, the redisclosure of which is protected by Article 27-F of the [facility] Public Health law. If you continue you may have access to information: Regarding HIV / AIDS; Provided by facilities licensed or operated by the [facility] Office of Mental Health; or Provided by the [facility] Office for People With Developmental Disabilities. If such information is present, then the following [facility] mandated warning applies: This information has been disclosed to you from confidential records which are protected by state law. State law prohibits you from making any further disclosure of this information without the specific written consent of the person to whom it pertains, or as otherwise permitted by law. Any unauthorized further disclosure in violation of state law may result in a fine or mcc sentence or both. A general authorization for the release of medical or other information is NOT sufficient authorization for further disc losure. Allergies and Adverse Reactions Type Description Substance Reaction Status Data Source(s ) Propensity to adverse reactions HYDROCODONE-ACETAMINOPHEN Hydrocodone-Acetaminophen Active [facility] Propensity to adverse reactions IBUPROFEN Ibuprofen Acti ve [facility] Propensity to adverse reactions CEPHALEXIN Cephalexin Rash Low Acti ve [facility] Low Family History Family Member Name Family Member Gender Family Member Status Date o f Status Description Data Source(s) Unknown Unknown Problem [facility] ([facility]) Encounters Encounter Providers Location Date Indications Data Source(s ) Unknown [address] [facility] [address] 07/21/2021 12:00:00 AM EDT eCW1 ([facility]patient [address] [facility] [address] 07/15/2021 12:00:00 AM EDT eCW1 [facility] Unknown [address] [facility] [address] 06/30/2021 12:00:00 AM EDT eCW1 ([facility]) Outpatient [address] [facility] [place] [address] 06/16/2021 12:00:00 AM EDT eCW1 ([facility]) Outpatient Attender: FERNANDA MANLEY MDA dmitter: FERNANDA MANLEY MDReferrer: FERNANDA MANLEY MD [email or web address].CVAU 06/11/2021 10:15:00 AM EDT - 06/11/2021 08:00:00 PM EDT [facility] Patient discharged. Unknown [address] [facility] [address] 05/21/2021 12:00:00 AM EDT eCW1 (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 [address] 05/13/2021 12:00:00 AM EDT eCW1 ([facility] Unknown [address] [facility] [place] [address] 05/12/2021 12:00:00 AM EDT eCW1 ([facility] Unknown [address] [facility] [place] [address] 05/07/2021 12:00:00 AM EDT eCW1 ([facility]) Unknown [address] [facility] [address] 04/27/2021 12:00:00 AM EDT eCW1 ([facility]) Outpatient [address] [facility] [address] 04/15/2021 12:00:00 AM EDT eCW1 ([facility]) Outpatient [address] [facility] [address] 04/15/2021 12:00:00 AM EDT eCW1 ([facility]) Unknown [address] [facility] [address] 04/08/2021 12:00:00 AM EDT eCW1 ([facility]) Outpatient Attender: Jay Jay Tamayo: Patty ruggiero [facility] 03/09/2021 02:46:04 PM EDT [facility] Outpatient Attender: Jo WILLIAM Main Office 02/26/2021 09:45:00 AM EDT MEDENT ([facility]) Outpatient [address] [facility] [address] 02/19/2021 12:00:00 AM EDT eCW1 ([facility]) Unknown [address] [facility] [address] 02/13/2021 12:00:00 AM EDT eCW1 ([facility]) Outpatient Attender: CHAZ Mckeoner: Patty KHANP 02/12/2021 11:38:10 AM EDT [facility] Recurring Patient Attender: CHAZ Mckeoner: Patty FRIEDMAN 02/11/2021 12:36:42 PM EDT [facility] Unknown [address] [facility] [address] 02/11/2021 12:00:00 AM EDT eCW1 ([facility]) Recurring Patient Attender: CHAZ Henryerrer: Patty FRIEDMAN 01/29/2021 01:15:15 PM EDT [facility] Recurring Patient Attender: CHAZ LADYALFREDA PAReferrer: Patty Chapin loly MANAGER INTERVENTIONAL 01/29/2021 10:54:49 AM EDT [facility] Recurring Patient Attender: SYEDA MAITE MDReferrer: Patty Sixto jenae MANAGER INTERVENTIONAL 01/28/2021 02:19:47 PM EDT [facility] Unknown [address] [facility] [address] 01/28/2021 12:00:00 AM EDT eCW1 ([facility]) Outpatient [address] [facility] [address] 01/26/2021 12:00:00 AM EDT eCW1 ([facility]) Outpatient [address] [facility] [address] 01/21/2021 12:00:00 AM EDT eCW1 ([facility]) Outpatient [address] [facility] [address] 01/08/2021 12:00:00 AM EDT eCW1 ([facility]) Office Visit Attender: CARLIE Tovar/Olga/Harsh/Elvia indclif 12/31/2020 03:00:00 PM EDT MEDENT ([facility] Unknown [address] [facility] [address] 12/29/2020 12:00:00 AM EDT eCW1 ([facility]) Outpatient Attender: FRACISCO WILLIAM Physical Therapy 08/27/2020 0 1:15:00 PM EST MEDENT ([facility]) Outpatient Attender: FRACISCO WILLIAM Physical Therapy 08/12/2020 0 9:15:00 AM EST MEDENT ([facility]) Medications Medication Brand Name Start Date Product Form Dose Route Admi nistrative Instructions Pharmacy Instructions Status Indications Reaction Description Data Source(s) gabapentin 300 MG Oral Capsule Gabapentin 300 MG Gabapentin 300 MG 06/16/2021 12:00:00 AM EDT 1.0 {capsule} active G abapentin 300 MG [facility] gabapentin 300 MG Oral Capsule Gabapentin 300 MG Gabapentin 300 MG 06/16/2021 12:00:00 AM EDT 1.0 {capsule} active G abapentin 300 MG [facility]CW[facility] gabapentin 300 MG Oral Capsule Gabapentin 300 MG Gabapentin 300 MG 06/16/2021 12:00:00 AM EDT 1.0 {capsule} active G abapentin 300 MG [facility]CW[facility] gabapentin 100 MG Oral Capsule Gabapentin 100 MG Gabapentin 100 MG 06/16/2021 12:00:00 AM EDT 1.0 {capsule} active G abapentin 100 MG [facility] sodium chloride 0.9% (NS) infusion 1846-9744-07 06/11/2021 03:00:00 PM EDT 75 mL/h Intravenous completed at 75 mL /hr, 75 mL/hr, Intravenous, Continuous, Starting on Marily 06/11/21 at 1500, For 6 hours, Post-op [facility] Medication administered onsite normal saline flush 0.9 % injection 3 mL 08759-249-87 06/11/2021 03:00:00 PM EDT 3 mL Intravenous active 3 mL , Intravenous, PROTOCOL, First dose on Marily 06/11/21 at 1500, Pre-op
flush per protocol, D/C Main IV fluid if appropriate
[facility] Medication administered onsite iopamidol (ISOVUE-370) 76 % [id number] 06/11/2021 02:01:25 PM EDT active As needed, Starting on Marily 06/11/21 at 1401, Intra-Proc edure [facility] Medication administered onsite normal saline flush 0.9 % injection 3 mL 83845-235-80 06/11/2021 02:00:00 PM EDT 3 mL Intravenous active 3 mL , Intravenous, Every 8 hours (scheduled), First dose on Marily 06/11/21 at 1400, Pre-op
Rapid push positive pressure flushing shall be performed with a 10 cc normal saline syringe to check the PATENCY of a PIV site prior to any infusion therapy initiation unless resistance is met.
[facility] Medication administered onsite NITROGLYCERIN 0.4 MG/ML IV SOLN 7506-7533-20 06/11/2021 01:40:47 PM EDT active As needed, Starting on Marily at 1340, Intra-Procedure [facility] Medication administered onsite 1 ML heparin sodium, porcine 1000 UNT/ML Injection hep misael (porcine) injection heparin (porcine) injection 06/11/2021 01:21:29 PM EDT active As needed, Starting on Marily 06/11/21 at 1321, Intra-Procedure [facility] Medication administered onsite 4 ML Verapamil hydrochloride 2.5 MG/ML Injection verap shari (ISOPTIN) injection verapamil (ISOPTIN) injection 06/11/2021 01:21:19 PM EDT active As needed, Starting on Marily 06/11/21 at 1321, Intra-Procedure [facility] Medication administered onsite fentaNYL Citrate (PF) (SUBLIMAZE) injection 1496-5047-28 06/11/2021 01:12:33 PM EDT active As neede d, Starting on Marily 06/11/21 at 1312, Intra-Procedure [facility] Medication administered onsite 2 ML Midazolam 1 MG/ML Injection midazolam (VERSED) in jection midazolam (VERSED) injection 06/11/2021 01:12:26 PM EDT active As needed, Starting on Marily 06/11/21 at 1312, Intra-Procedure [facility] Medication administered onsite lidocaine 1 % injection 0895-5608-20 06/11/2021 01:11:45 PM EDT active As needed, Starting on Marily at 1311, Intra-Procedure [facility] Medication administered onsite sodium chloride 0.9% (NS) infusion 8392-7310-48 06/11/2021 11:00:00 AM EDT 100 mL/h Intravenous active at 100 m L/hr, 100 mL/hr, Intravenous, Continuous, Starting on Marily 06/11/21 at 1100, Pre-op
Start two hours prior to scheduled start time
[facility] Medication administered onsite Acetaminophen 325 MG Oral Tablet acetaminophen (TYLENO L) 325 MG tablet 650 mg acetaminophen (TYLENOL) 325 MG tablet 650 mg 06/11/2021 10:44:03 AM EDT 650 mg Oral active 650 mg, Or al, Every 4 hours PRN, headaches, and non cardiac pain, Starting on Marily 06/11/21 at 1044, Pre-op
"Maximum dose of acetaminophen is 4,000 mg from all sources in 24 hours."
[facility] Medication administered onsite clopidogrel 75 MG Oral Tablet clopidogrel (PLAVIX) 75 MG tablet clopidogrel (PLAVIX) 75 MG tablet 06/11/2021 12:00:00 AM EDT 75 mg Oral active Take 1 tablet (75 mg total) by mouth daily [facility] ferrous sulfate 325 MG Delayed Release O ral Tablet Ferrous Sulfate 325 (65 Fe) MG Ferrous Sulfate 325 (65 Fe) MG 04/15/2021 12:00:00 AM EDT 1. 0 {tablet} active Ferrous Sulfate 325 (65 Fe) MG [facility] ferrous sulfate 325 MG Delayed Release O ral Tablet Ferrous Sulfate 325 (65 Fe) MG Ferrous Sulfate 325 (65 Fe) MG 04/15/2021 12:00:00 AM EDT 1. 0 {tablet} active Ferrous Sulfate 325 (65 Fe) MG eCW1 ([facility]) ferrous sulfate 325 MG Delayed Release O ral Tablet Ferrous Sulfate 325 (65 Fe) MG Ferrous Sulfate 325 (65 Fe) MG 04/15/2021 12:00:00 AM EDT 1. 0 {tablet} active Ferrous Sulfate 325 (65 Fe) MG eCW1 ([facility]) ferrous sulfate 325 MG Delayed Release O ral Tablet Ferrous Sulfate 325 (65 Fe) MG Ferrous Sulfate 325 (65 Fe) MG 04/15/2021 12:00:00 AM EDT 1. 0 {tablet} active Ferrous Sulfate 325 (65 Fe) MG eCW1 ([facility]) ferrous sulfate 325 MG Delayed Release O ral Tablet Ferrous Sulfate 325 (65 Fe) MG Ferrous Sulfate 325 (65 Fe) MG 04/15/2021 12:00:00 AM EDT 1. 0 {tablet} active Ferrous Sulfate 325 (65 Fe) MG eCW1 ([facility]) ferrous sulfate 325 MG Delayed Release O ral Tablet Ferrous Sulfate 325 (65 Fe) MG Ferrous Sulfate 325 (65 Fe) MG 04/15/2021 12:00:00 AM EDT 1. 0 {tablet} active Ferrous Sulfate 325 (65 Fe) MG eCW1 ([facility]) ferrous sulfate 325 MG Delayed Release O ral Tablet Ferrous Sulfate 325 (65 Fe) MG Ferrous Sulfate 325 (65 Fe) MG 04/15/2021 12:00:00 AM EDT 1. 0 {tablet} active Ferrous Sulfate 325 (65 Fe) MG eCW1 [facility] ferrous sulfate 325 MG Delayed Release O ral Tablet Ferrous Sulfate 325 (65 Fe) MG Ferrous Sulfate 325 (65 Fe) MG 04/15/2021 12:00:00 AM EDT 1. 0 {tablet} active Ferrous Sulfate 325 (65 Fe) MG [facility]CW1 ([facility] ferrous sulfate 325 MG Delayed Release O ral Tablet Ferrous Sulfate 325 (65 Fe) MG Ferrous Sulfate 325 (65 Fe) MG 04/15/2021 12:00:00 AM EDT 1. 0 {tablet} active Ferrous Sulfate 325 (65 Fe) MG eCW1 ([facility]) ferrous sulfate 325 MG Delayed Release O ral Tablet Ferrous Sulfate 325 (65 Fe) MG Ferrous Sulfate 325 (65 Fe) MG 04/15/2021 12:00:00 AM EDT 1. 0 {tablet} active Ferrous Sulfate 325 (65 Fe) MG [facility]CW1 [facility]) Lisinopril 5 MG Oral Tablet Lisinopril 02/26/2021 12:00:00 AM EDT ORAL active [facility] ([facility]) Aspirin 81 MG Delayed Release Oral Tablet Aspirin 02/26/2021 1 2:00:00 AM EDT ORAL active [facility] ([facility]) Rosuvastatin calcium 20 MG Oral Tablet Rosuvastatin Calcium 02/26/2021 12:00:00 AM EDT ORAL active [facility] ([facility] clopidogrel 75 MG Oral Tablet clopidogrel (PLAVIX) 75 MG tablet clopidogrel (PLAVIX) 75 MG tablet 75 mg Oral aborted Ta ke 75 mg by mouth daily [facility] Ticagrelor (BRILINTA PO) drug or medication Oral aborted Take by mouth [facility] Insurance Providers Payer name Policy type / Coverage type Policy ID Covered libertarian ID Covered libertarian's relationship to [place]itting[place] Policy [place] Plan Information MVP Commercial [id number] Self [facility] Commercial [id number] Self [id number] [place] [employer]([place]) Workers Compensation [id number] Self 0 [id number] [facility] Workers Compensation [id number] [id number] Self 0 [id number] [facility] Workers Compensation [id number] 2.16.840.1.373038.3.227.99.991.97190.0 Self 0 [id number] [facility] Workers Compensation [id number] 2.16.840.1.001397.3.227.99.991.61272.0 Self 0 [id number] [facility] Workers Compensation [id number] 2.16.840.1.264623.3.227.99.991.97173.0 Self 0 [id number] [facility] Workers Compensation [id number] 2.16.840.1.145178.3.227.99.991.64830.0 Self 0 [id number] [facility] Workers Compensation [id number] 2.16.840.1.938950.3.227.99.991.78142.0 Self 0 [id number] [facility] Workers Compensation [id number] 2.16.840.1.577914.3.227.99.991.64392.0 Self 0 [id number] [employer](WC) Workers Compensation [id number] 2.0.1.383413.3.227.99.991.99481.0 Self 0 [id number] [facility] [id number] SP [id number] Lifetime Benefit Solution Medigap Part B [id number] 2.0.1.856622.3.227.99.991.61476.0 Self [id number] [employer] Commercial [id number] Self [employer] Commercial [id number] 2..1.988526.3.227.99.572.22827.0 Self E [id number] [employer] Commercial [id number] Self [id number] [employer] Commercial [id number] Self [id number] [employer] Commercial [id number] 2..1.614249.3.227.99.572.09864.0 Self E [id number] [employer] Commercial [id number] Self [id number] [employer] Commercial [id number] 2.0.1.683803.3.227.99.572.75520.0 Self E [id number] [employer] Commercial [id number] 2..1.524863.3.227.99.572.17585.0 Self E [id number] [employer] Commercial [id number] Self [id number] [employer] Commercial [id number] Self [id number] [employer] Commercial [id number] 2.0.1.961828.3.227.99.572.63090.0 Self [id number] [employer] Commercial [id number] Self [id number] [employer] Commercial [id number] Self [employer] FHP Commercial [id number] 2.0.1.234173.3.227.99.572.92882.0 Self [id number] [employer] FHP Commercial [id number] 2.0.1.543694.3.227.99.572.49814.0 Self [id number] [employer] FHP Commercial [id number] 2.0.1.711618.3.227.99.572.46777.0 Self [id number] [employer] Medigap Part B [id number] 2.0.1.024721.3.227.99.572.61439.0 Family Dependent V [id number] [employer] Medigap Part B [id number] 2.0.1.998668.3.227.99.572.69702.0 Family Dependent V [id number] [employer] Medigap Part B [id number] Family Dependent [employer] Medigap Part B [id number] Family Dependent [id number] [employer] Medigap Part B [id number] 2.0.1.712807.3.227.99.572.56352.0 Family Dependent V [id number] [employer] Medigap Part B [id number] Family Dependent [id number] [employer] Medigap Part B [id number] Family Dependent [id number] [employer] Medigap Part B [id number] 2.16840.1.924175.3.227.99.572.31805.0 Family Dependent V [id number] Medicaid Medigap Part B [id number] MRN.[id number] Self [id number] Medicaid Medigap Part B [id number] 2.16.840.1.866378.3.227.99.572.1810 4.0 Self [id number] Medicaid Medigap Part B [id number] 2.16.840.1.311115.3.227.99.572.1810 4.0 Self [id number] Medicaid Medigap Part B [id number] MRN.[id number] Self [id number] Medicaid Medigap Part B [id number] Self Medicaid Medigap Part B [id number] 2.16.840.1.577182.3.227.99.572.1810 4.0 Self [id number] Medicaid Medigap Part B 1 [id number] Self 1 1 Medicaid Medigap Part B [id number] 2.16.840.1.537170.3.227.99.572.1810 4.0 Self [id number] Medicaid Medigap Part B [id number] MRN.[id number] Self [id number] SMC/Employee Health Workers Compensation [id number] Self EXCELLUS C [id number] Spouse [id number] BCBS Excell[employer] U/W Medigap Part B [id number] Self [id number] BCBS Excell[employer] U/W Medigap Part B [id number] Self [id number] BC/BS [place] Medigap Part B [id number] Self BCBS Excellus Ppo U/W Medigap Part B [id number] Self BCBS Excell[employer] U/W Medigap Part B [id number] .0.1.452541.3.227.99.572.24049.0 Self V [id number] BCBS [employer] U/W Medigap Part B [id number] [id number] Self [id number] BCBS [employer] U/W Medigap Part B [id number] .1.464729.3.227.99.572.26523.0 Self V [id number] BCBS [employer] U/W Medigap Part B [id number] .1.827024.3.227.99.572.71909.0 Self V [id number] BCBS Excell[employer] Ppo U/W Medigap Part B [id number] ..1.642931.3.227.99.572.40364.0 Self V [id number] [facility] Comm Plan Medicaid F [id number] SELF [id number] [facility] Comm Plan Medicaid F [id number] SELF [id number] [facility] Comm Plan Medicaid F [id number] SELF [id number] HC COMMUNITY PLAN [facility] [id number] SP [id number] UNHC COMMUNITY PLAN [facility] [id number] SP [id number] [facility] Plan Commercial [id number] [id number] Self [id number] [facility] COMMUNTY PLAN [id number] 18 [id number] UNHC COMMUNITY PLAN [id number] 18 [id number] UNHC COMMUNITY PLAN [facility] [id number] SP [id number] Medicaid [facility] S D [id number] SELF [id number] [facility] MEDICAID [id number] [facility] MEDICAID [id number] [place] [id number] O [id number] U [id number] UNHC COMMUNITY PLAN MCDHMO [id number] SP [id number] [place] [id number] SP [id number] T [facility] [id number] SP [id number] UNHC COMMUNITY PLAN MCDHMO [id number] SP [id number] EMED[place] [id number] SP [id number] SELF PAY ONLY [id number] SP [id number] EMEDNY [id number] SP [id number] ANSI-Medicaid [id number] [facility] COMMUNITY PLAN [place] [id number] 18 [id number] UNHC COMMUNITY PLAN XIX [id number] 18 [id number] [facility] Plan[facility] Commercial [id number] Self [id number] [facility] Plan[facility] Commercial [id number] Self [id number] [facility] Plan[facility] Commercial [id number] Self [id number] ANS-Medicaid [id number] ANSI-Medicaid [id number] ANSI-Medicaid [id number] ANSI-Medicaid [id number] ANSI-Medicaid [id number] ANSI-Medicaid [id number] [facility] O [id number] S [id number] [facility] Commercial [id number]9.572.83690.0 Self 1 [id number] [facility] Commercial [id number].572.74282.0 Self [id number] ANSI-Medicaid [id number] ANSI-Medicaid [id number] ANSI-Medicaid [id number] ANSI-Medicaid [id number] [facility] Health Maintenance Organization (HMO) [id number] [id number] Self [id number] ANSI-Medicaid [id number] ANSI-Medicaid [id number] ANSI-Medicaid [id number] ANSI-Medicaid [id number] [facility] Commercial [id number]..[id number] Self [id number] [facility] Health Maintenance Organization (O) [id number]..[id number] Self [id number] [facility] Health Maintenance Organization (O) [id number]..[id number] Self [id number] [facility] Commercial [id number]..[id number] Self [id number] [facility] [id number] 18 [id number] [facility] Health Maintenance Organization (HMO) [id number]..[id number] Self [id number] U/HC Medicaid Comm Plan Commercial [id number] Self UNHC AMERICHOICE XIX -O [id number] 18 [id number] [facility] Health Maintenance Organization (HMO) [id number] Self [place] 306/806 [id number] MEDICAID W [id number] S [id number] MEDICAID W [id number] S [id number] [place] PPO 302/307 [id number] [place] PPO 302/307 [id number] SELF PAY UNAVAILABLE SP UNAVAILA BLE [facility] FAMILY HLTH PLUS [id number] SP [id number] MEDICAID [id number] [employer] WORKER COMP [id number] SP [id number] 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 [id number] SP [id number] [facility] PHY [id number] SP [id number] [place] [place] PPO 302/[id number] HU2 [id number] [place] P [id number] P VYS [id number] BCBS [facility] O [id number] U [id number] [place]BS [place] O [id number] U [id number] [facility] [id number] SP [id number] Problems, Conditions, and Diagnoses Code Display Name Description Problem Type Effective Dates Data Source(s) I10 Essential (primary) hypertension Essential (primary) h ypertension Diagnosis 06/11/2021 10:15:00 AM EDT [facility] R07.9 Chest pain, unspecified Chest pain, unspecified Diagno sis 06/11/2021 10:15:00 AM EDT [facility] R94.39 Abnormal result of other cardiovascular function study Abnormal result of other cardiovascular Diagnosis 06/11/2021 10:15:00 AM EDT [facility] F17.210 [id number] Cigarette nicotine dependence without com plication Problem 06/16/2021 12:00:00 AM EDT [facility] F17.200 [id number] Nicotine dependence, uncomplicated, unspecified nicotine product type Problem 04/15/2021 12:00:00 AM EDT eCW[facility] ([facility]) D50.8 [id number] Iron deficiency anem ia secondary to inadequate dietary iron intake Problem 04/15/2021 12:00:00 AM EDT eCW1 ([facility]) F50.89 65756127 Pica in adults Problem 02/19/2021 12:00:00 A M EDT [facility] I25.10 Coronary artery disease Coronary artery disease Proble m 01/26/2021 12:00:00 AM EDT [facility] R20.2 [id number] Paresthesia of skin Problem 01/21/2021 12:00 :00 AM EDT [facility]) N83.8 [id number] Ovarian mass, left Problem 01/08/2021 12:00:00 AM EDT [facility]) N94.10 [id number] Dyspareunia in female Problem 01/08/2021 12: 00:00 AM EDT [facility]) Z80.41 [id number] Family hx of ovarian malignancy Problem 01/08/2021 12:00:00 AM EDT [facility]) F17.200 [id number] Tobacco use disorder Problem 01/08/2021 12:0 0:00 AM EDT [facility]) Z90.710 [id number] Hx of hysterectomy Problem 01/07/2021 12:00: 00 AM EDT [facility]1 ([facility]) Surgeries/Procedures Procedure Description Date Indications Data Source(s) CARDIAC CATHETERIZATION <td>CARDIAC CATHETERIZATION</td><td>Routine</td><td>06/11/2021 1:59 PM EDT</td><td> Chest pain Essential hypertension</td><td> </td> 06/11/2021 01:59:11 PM EDT Essential hypertensionChest pain [facility] Essential hypertension Chest pain ECG ROUTINE ECG W/LEAST 12 LDS TRCG ONLY W/O I&R <td>E CG 12- LEAD</td><td>Routine</td><td>06/11/2021 10:55 AM EDT</td><td></td><td></td> 06/11/2021 10:55:56 AM EDT [facility] COVID/FLU AB/RSV PCR <td>COVID/FLU AB/RSV PCR</td ><td>STAT</td><td>06/11/2021 10:00 AM EDT</td><td></td><td> </td> 06/11/2021 10:00:00 AM EDT [facility] Perc Transcatheter Placement, Intracoronary Stent W/Plasty 05/21/2021 12:00:00 AM EDT [facility] ([facility] Left Heart Cath W/Wo LV & Coronary Angiography 021 12:00:00 AM EDT [facility] ([facility]) DOP ECHOCARD COLOR FLOW VELOCITY MAPPING 05/08/2021 12 :00:00 AM EDT [facility] ([facility]) ECHO TTHRC R-T 2D W/WO M-MODE REST&STRS CONT ECG 05/08 12:00:00 AM EDT [facility] ([facility]) ECG ROUTINE ECG W/LEAST 12 LDS W/I&R 02/26/2021 12:00: 00 AM EDT [facility] ([facility]) OFFICE OUTPATIENT VISIT 25 MINUTES 02/26/2021 12:00:00 AM EDT [facility] ([facility]) TOBACCO USE CESSATION INTERMEDIATE 3-10 MINUTES 2020 12:00:00 AM EDT [facility] ([facility]) RADEX ANKLE COMPLETE MINIMUM 3 VIEWS 08/27/2020 12:00: 00 AM EST [facility] ([facility]) Results ID Date Data Source VITAMIN B12 LEVEL 07/15/2021 12:00:00 AM EDT eCW1 ([facility]) Name Value Range Interpretation Code Description Data Karen rce(s) Supporting Document(s) [id number] VITAMIN B12 LEVEL eC1 ([facility]) ID Date Data Source TOTAL IRON BINDING CAPACIT 07/15/2021 12:00:00 AM EDT [facility] Name Value Range Interpretation Code Description Data Karen rce(s) Supporting Document(s) [phone] TOTAL IRON BINDING CAPACI TY [facility]CW1 [facility]) 98 50-170 IRON (FE) eCW1 ([facility]) 29.8 13.2-45.0 PERCENT SATURATION eCW1 ([facility]) ID Date Data Source MAGNESIUM LEVEL 07/15/2021 12:00:00 AM EDT eCW1 ([facility]) Name Value Range Interpretation Code Description Data Karen rce(s) Supporting Document(s) 1.8 1.8-2.4 MAGNESIUM LEVEL eCW1 ([facility]) ID Date Data Source CBC with Differential 07/15/2021 12:00:00 AM EDT eCW1 ([facility]) Name Value Range Interpretation Code Description Data Karen rce(s) Supporting Document(s) 10.1 4.0-10.0 WHITE BLOOD COUNT eCW1 ([facility]) 94.3 80.0-96.0 MEAN CORPUSCULAR VOLUME e CW1 ([facility]) 14.4 12.0-15.5 HEMOGLOBIN eCW1 ([facility]) 43.2 36.0-47.0 HEMATOCRIT eCW1 ([facility]) 4.58 4.00-5.40 RED BLOOD COUNT eCW1 ([facility]) 207 150-450 PLATELET COUNT, AUTOMATED eCW1 ([facility]) 33.3 32.0-36.5 MEAN CORPUSCULAR HGB CONC eCW1 ([facility]) 31.4 27.0-33.0 MEAN CORPUSCULAR HEMOGLOB IN eCW1 ([facility]) 15.7 11.5-14.5 RED CELL DISTRIBUTION WID TH eCW1 ([facility]) 5.7 2.0-8.0 MONO % eCW1 ([facility]) 69.6 36.0-66.0 NEUTROPHILS % eCW1 [facility]) 20.2 24.0-44.0 LYMPH % eCW1 ([facility]) 3.3 0.0-3.0 EOS % eCW1 ([facility]) 0.7 0.0-1.0 BASO % eCW1 ([facility]) 0.6 0.0-0.8 MONO # eCW1 ([facility]) 7.0 1.5-8.5 NEUTROPHILS # [facility]CW[facility]) 2.0 1.5-5.0 LYMPH # eCW1 ([facility]) 0.3 0.0-0.5 EOS # eCW1 ([facility]) 0.1 0.0-0.2 BASO # eCW1 ([facility]) ID Date Data Source [id number] 06/11/2021 02:10:06 PM EDT [facility] Name Value Range Interpretation Code Description Data Karen rce(s) Supporting Document(s) &PDF [facility] GBUHHn6xQnRBYwGi13/ELEchOXSes5ThAQesSAn4DDysFGHdJ9ZuaSobDYdGSQEWDC5FRHgKR9IgRLLb yKE [file] xO220X7r+AjJb9PMYTBFO4uTyglQ0dU+Sw4umzvjCz8R0t8pHNDyfuYeSCq6Nd5+HFnaVSGW5e1ZO/Molecular Genetic Pathologist [file] AgICAgICAgICAgICAgICAgICAgICAgICAgICAgICAgICAgICAgICAgICAgICAgICAgICAgICAgICAgIC AgICAgICAgICAgICAgDQogICAgICAgICAgICAgICAg ICAgICAgICAgICAgICAgICAgICAgICAgICAgICAgICAgICAgICAgICAgICAgICAgICAgICAgICAgICAg ICAgICAgICAgICAgICAgICAgICAgICAgDQogICAgICAgICAgICAgICAgICAgICAgICAgICAgICAgICAg ICAgICAgICAgICAgICAgICAgICAgICAgICAgICAgIC AgICAgICAgICAgICAgICAgICAgICAgICAgICAgICAgICAgDQogICAgICAgICAgICAgICAgICAgICAgIC AgICAgICAgICAgICAgICAgICAgICAgICAgICAgICAgICAgICAgICAgICAgICAgICAgICAgICAgICAgIC AgICAgICAgICAgICAgICAgDQogICAgICAgICAgICAg ICAgICAgICAgICAgICAgICAgICAgICAgICAgICAgICAgICAgICAgICAgICAgICAgICAgICAgICAgICAg ICAgICAgICAgICAgICAgICAgICAgICAgICAgDQogICAgICAgICAgICAgICAgICAgICAgICAgICAgICAg ICAgICAgICAgICAgICAgICAgICAgICAgICAgICAgIC AgICAgICAgICAgICAgICAgICAgICAgICAgICAgICAgICAgICAgDQogICAgICAgICAgICAgICAgICAgIC AgICAgICAgICAgICAgICAgICAgICAgICAgICAgICAgICAgICAgICAgICAgICAgICAgICAgICAgICAgIC AgICAgICAgICAgICAgICAgICAgDQogICAgICAgICAg ICAgICAgICAgICAgICAgICAgICAgICAgICAgICAgICAgICAgICAgICAgICAgICAgICAgICAgICAgICAg ICAgICAgICAgICAgICAgICAgICAgICAgICAgICAgDQogICAgICAgICAgICAgICAgICAgICAgICAgICAg ICAgICAgICAgICAgICAgICAgICAgICAgICAgICAgIC AgICAgICAgICAgICAgICAgICAgICAgICAgICAgICAgICAgICAgICAgDQogICAgICAgICAgICAgICAgIC AgICAgICAgICAgICAgICAgICAgICAgICAgICAgICAgICAgICAgICAgICAgICAgICAgICAgICAgICAgIC ZpHAOdJNNiFHGjSVKrRSZjKWSbXEXaPXh9N0geEKNh KXYaYY7sBSy8Ya1+ZHrPByXiEXW7ncJdmV1JIG4jb3DtIFrbDSChj3LpFSx5ZX3TAPGjJTnhRR7AEKfw gc8IFQJuXYWlwDKZn8gbQbHyKIF5BGKkTavbDP3DALBdU9fxynXqBBAbMWNWOYcvOJWNPZehTQHWAMAb MEIhQnUrGbKmGQSkUP6LRCJgX115xbSqUX6FSa7VEg YqDO8jbd2BHmvlARHpVjtAUij3NSvpKR4AnEFnrJKxFDJiPYDYIkDeC8dpo1AeQnllLGGUIUqgAS8Yz5 VudCAxDQo+En3ZFR4pp5IuMEnsCKOyAX2luz7SLZhFApQhX8TjfNcwYCdopUvhevNmFT3FCAIqRHNwjZ DhRVnmZVMALH5AHCszTZS9TFuenwZcaXZoQAttZA3R YXJlbnQgMzcgMCBSDQo+Ga9WKN4hu1HmWXoqVYUcIL8jpc0JTKzLTrZyU9J3kPOmF8N0LIjfRj6YPVGo YXSpCsKqCMKELCusOO1CCP6kbiQ6AE0UnFRtRQFmHOFibPIyYFz1G99apDVoNLgdSA7PXWS+Lisa+Pg0K EXOmJOCgNONuApQcBQWMQiSvD5SsH0USp1WvX8WqXI 49hQzoraZoXAggEY8KCQ7hLHPkMZGGIH0LnZPhvJ5dayMbYgKsOAILZgQnE14paXSxYGXwHWF4EVDtUh 4IHKLrR2TizsUmsPjublQxPTJyDKPYCU4CDOnrauFxuLAoqZzeTX21kFeiKJ6LOf0OQgAwNA5hvt0JsL DpQz3OZCS7LR2TDKDjSBZlLKKcWFR0JQUuHcVbTFie MQIgUHYoIKG1BCTxLNYyIA3NGeAiQWFpNHU2LPxlLJEhGHMrpo7MNPQqWDU7FyL6SKSkVCNkFUTeKMhn QSJcVZMoFPhhYBDhRHUjXI0XXnAhKSRfCUEyUngrIACeIOUnvt1PFKQtPUPsBcCrRbPcHAUpEOQxENrk CWMaZHY2PyBwZIGvQUQaPB4AEhIuQEXmGKH6KosmVX KvWVZhqu8QFRYaAQMtXgD5FFVcIAGvVSAuDJiaWOJtZNW1OOi3SFArBTCfZJ7ORgTiZUMvWRl4LLXwUX CoJAUtse4DWSNvJMHtNUs1VFKpLAOcHDWvSQwbGKDwEDFuUMx4PJNrXHLkTJ8IBiKwUZFlNSArXHBzRG WuFTFsxg2TVNGgERBbTBX8ChBvMDMkFYGiSSumTIEx EPDlECR9RRFzTHBsXQ5PCkVqQIBrJVX8BvYrLTThAYJanj6CQVZoAJKfYgA4LQRiFVFoRPYtDYatNQDo HAPwFhuaZCKiDKUnLS9EPcAiJWJkEFA4HSQlSTQpNJVzjo6ARMKhCFXkLghdGhJnWMMdLOYnAKxyZNLw BQB3JGC6TKUgQUNwBA9JEsYmUKCtENcyTwRfNCYjUQ Glek1NGGAcSGEdANLvSgSnXATlETVrYMpzWLDeRDK8TjNeTXBuEKGxAM1CDeXaOOZjOgX8AAniWSMuJU Zoxa1BQFSxOIIwEAW0OvRtAGKcHSKzGOizCRUlPRB2SyAaNDZdAZNwHN1KLsWkSSAtWMDfJIGyYIExWG Vnye3FQEToEDH1KeFcYQJhKDFlYSRgKRkqTTPbXJP7 ZVz0VLDdMAQhLB1PJvHhTCKnVzX1UZWaTCEdKHZlge0ZCXSgNMH1WMSuOOYtIJEvKNNkULuzMDBbKJma QzD1YGHuNPEdXX3OUlYgTVIpHGC9HsBwTEGmRAQyzj6TTPBzXKW1EYThBJGnUNGeAODyWFjoTPIeTWod UTs2KSDxGSOySP1OLpYiVOAkBUI6FDUoNYCiUVWgnl 9NIMRsCNF5Rwc2ZJJmUZOpOYNcTUy7vnMmqRAoYMx5MP6RV3YtyyOaLTGXCd0Kl985FII6KLBoRa7HZ9 xzZa1aBZBcFHZAGz5KBRb3IEGoD4IzWwM0Cog8JcWsTmH6OCV9BQO1LRYtBZOfAHM+IDwxMDAzYjBjNj ohHzJtKNRsKNIdXdr0WcG1DtG4ELH5Ul6kINWXAu4+MJiqiSBdvYbsJQBVYlsbKBg0FWwnRVYUUr5M ID Date Data Source [id number] 06/11/2021 11:33:00 AM EDT [facility] Name Value Range Interpretation Code Description Data Karen rce(s) Supporting Document(s) EKG [facility] WELTMm0bEcJEHcBkn3WhDqCySQJlYC3cxip3H8C8mPIyU8DmxGGiw8qeU8HpP6WoBIIwVPRXFB2LbLZb jb2 [file] a54i449+vVt++ve57G8/safety admin assistant/90Uee9EeH4jLAr0/ff/H1/Y+2csaAmzj7vB/WO8wFlx4BuJ+ZmxlWw61H f1z76B/1mJW4jY0atjd8197rV10iV//35tc/9v+j3W V85DJx5kHWDMr5JH396c+/fP+XT+7q2uZdh2dNB2/Gfp3u88hO//8n6ea2O+//+ISjIm4/cAi7ak2th0 P+4XLS3zqmlfbn85/DNgB8ZO8tx/nxX+/f/nj+ejvo7zzPGxqojLNg/VB3w6h69Ee2WPqaMHWahluE/3 yzpOXDPxb+0lD0bDG1PytXjkFmA8J8tMX/PsYb5Knm HjBB5aAX07ylfI10Sx3lJ0/I3syyv0XpdCCaaqB/EhCNj83HTD3hv1FiSCAxFoPoLC6xrmfoHHIaDN8z oif4F6NjqQoeFBuKZYKeGa1izNHfXW6TUDC2GKviPVZbJXNrK5VboM3qX24mjNXoTgAhLUSKUE6TvrT8 PYZ6VXK7KYChIyAoPQNrUW64EWEdIBCMLa0sltZzTb cVFgXoCL8vzid7T6D7cPNvM389bVfmdjCdDF9Lb1CksISuGF9FgTWwkTFfEVVcODPaY3ncz2VcCGjyNR VQGl3dxlOgFkdUTxVnNO5kdlj8H3H4rDyiwlDcWEOINIqzYwmeCM5zcPkexvvkI6MlqXOeZXWiU1SuQH Vbb72AEDImQWiACmDgFuZrCLSrHNMoDpngZiIdOJLg KTHiABFzSD3VrHGpHZRtWGUFNAetIpiuLXLcgS1waEWLw5YoMSCQZNjhJR2ALOqJZ4JfKXBfNiLeKgDc MSYtA8VnvuNhiBAcWUZMZYbgTmjmABLmyJ8umKtgZ8EpRNA8v0SiUB5JT1EyVRJvOBUUPSV0x4EcSKYv fvuyybbpPsKeQXLcKIHrHJCgFQ6Gtd7vhPJtpwAvIV LCDWdbZuinAQ5ceIoethqtP7BioOQrDTV+PbRrEC4lfx0+OdTtCYVwLbu1XDNgCVgrBUNmLOVlMNQsQ5 ufTCKuFkAdOGJtWeLbHB3Yx7XnyXYcKl6yylDvUgpEqYHiVlegWHVqVUGuKOFxKiLMVSHvJCMxKKOlIW K1OEDpMYShUGcwDFUyATUdNHH0TQQwROYdXY7wKnKy IITeIMXqWmgxXTDrYTGdhcGBPKNiLKK7RyG2VzJkEVRqKUYaDTuvAJIzUZJtMUFoLFK6LYD7XTFzTrKq PTFgGMYwGPBiXHVjUWHgjsAEHZFwJWGuGUV6LQOsZFGzJLYrMHyjOMTvCXQxLOklCLOzMMCpUG0vTwOk MDAwMDAyOTggMDAwMDAgbiAKMDAwMDAwMDQwOSAwMD PdNVWaBGpsDUHdXTIxKSMuGRJpJIVtGU9sTeNmGTVcKKE7VMAxEZAbKQEenzIPSMBzZPPqCVg2TZRxJX XsPTFtJJcoEHTqEYFkXAV1IRFkPUAgZT8nFbStJXGtBYB7OtTdECGdJMQngxNFBYJjRYGhEIO1IwPfHQ NrLADqLNnmWYQbAOEfFQbiSIFfEYJuCT2xOsYvKJUb LJJtXHvgGBNlYEKlzvEJWCHtBFTqAZTsWjEpETMjKHUwQDqhXUNeYIIhFFu4ZELcUKQpXG1xTvNkPUIp MDS4YOmuFEMpQZDajzWJKXAjBGRjWPgeRSJiMPIdNZYnTXxmDMHwSMQzBGU0TMEgPUWvGD8wWiCrNNEa GSIpRRXmKsE7TyClXhBGxBPmcSygwnh1GYaaL0d8BN NtVWukGM1oubKpKRUhGscgPd5jvRI7JEVjRgaTXh1Op2TntfU1ktUeLeEjYOruOxSmRK3C ID Date Data Source [id number] 06/11/2021 11:27:17 AM EDT [facility] INFORMATIONPatient MRN Name Date of Age Gend*PT [id number] Lisa Mcclellan 1965 55 years F HOPPT Location Admission Date/Time Visit ID Attending Provider06/11/21 1015 --- [facility]([id number][facility] EPI ID CSN Admitting Provider [id number] Fernanda Manley MD([id number])Updated H&PPlease see the scanned/dictated outpatient note.I have reviewed the note, clinical history and physical exam findings. Therehave been no significant changes.Plan as outlined in the outpatient note.Risk/benifit/alternative of cardiac catheterization was discussed withpatient/family. Risks included, but not limited to; AL, CVA, , renalimpairment, vascular complication, and need for emergency surgery were discussedand accepted by patient.Fernanda Manley MD, [facility], [facility]TAAIInterventional Telehealth Nurse Name Value Range Interpretation Code Description Data Karen rce(s) Supporting Document(s) ID Date Data Source [id number] 06/11/2021 10:00:00 AM EDT [facility] Name Value Range Interpretation Code Description Data Karen rce(s) Supporting Document(s) SARS coronavirus 2 RNA [Presence] in Res piratory specimen by BLAKE with probe detection NOT DETECTED [facility] This lab was reported by [facility]. ID Date Data Source [id number] 06/11/2021 11:28:41 AM EDT [facility] Name Value Range Interpretation Code Description Data Karen rce(s) Supporting Document(s) SPECIMEN DESCRIPTION [facility] INFLUENZA A (NEG) [facility] INFLUENZA B (NEG) [facility] RSV (NEG) [facility] COMMENT [facility] THE U.[place]. FDA HAS MADE THIS TEST AVAILABL EUNDER AN EMERGENCY USE AUTHORIZATION(EUA) FOR THE DETECTION AND/OR DIAGNOSISOF THE VIRUS THAT CAUSES COVID-19.PERFORMED AT [address] [place] [address] [place] [address] COVID19 RESULT (NDET) [facility] THIS ASSAY AMPLIFIES AND DETECTSTHE TARG ET RNA USING REAL-TIME PCR.TESTING PERFORMED ON [employer] GENEXPERTNEGATIVE 2019_NCOV RT-PCR RESULTS DONOT PRECLUDE 2019_NCOV INFECTION ANDSHOULD NOT BE USED THE SOLE BASISFOR PATIENT MANAGEMENT DECISIONS. FIRST TEST [facility] EMPLOYED IN HLTHCARE Lab [facility] of [facility] SYMPTOMATIC [facility] of [facility] DATE OF SYMPT ONSET Lab [facility] of [facility] HOSPITALIZED [facility] of [facility] ICU [facility] CONGREGATE CARE SET Lab [facility] of [facility] ID Date Data Source [id number] 06/08/2021 09:40:00 AM EDT [facility] Name Value Range Interpretation Code Description Data Karen rce(s) Supporting Document(s) SARS-CoV-2 (COVID-19) RNA [Presence] in Respiratory specimen by BLAKE with probe detection Not Detected [facility] This lab was ordered by [facility] and reported by [employer] ID Date Data Source [id number] 06/08/2021 09:40:00 AM EDT [facility] ([facility] Name Value Range Interpretation Code Description Data Karen rce(s) Supporting Document(s) Laboratory test finding (navigational concept) Laboratory test result [facility] ([facility]) ASSAY INFORMATION: Real Time RT-PCR or T MA. Both RT-PCR and TMA are nucleic acid amplification tests (NAAT) which are molecular testing modalities and recommended by the CDC for passenger travel. Testing and International Air Travel, cdc.gov/coronavirus/2019-ncov/travelers/lcormcy-anx-jymtex.html 11/06/2020 NOTE: The COVID-19 assay is under Emergency Use Authorization (EUA) by the U.S. Food and Drug Administration. [employer] and [facility] [facility] are designated as high complexity laboratories by the Clinical Laboratory Improvement Amendments of 1988 (CLIA) and are qualified to perform this test. Not Detected ID Date Data Source [id number] 05/29/2021 11:48:00 AM EDT [facility] ([facility] Name Value Range Interpretation Code Description Data Karen rce(s) Supporting Document(s) Glucose, Fasting 85 mg/dL 70-100 Normal (applies to non-numeric results) [facility] ([facility]) Blood Urea Nitrogen 8 mg/dL 7-18 Normal (applies to non-nume joel results) [facility] ([facility]) Glomerular Filtration Rate Laboratory test result Normal (applies to non- numeric results) [facility]) <content>Units are mL/min/1.73 m2</content>
<content></content>
<content>Chronic Kidney Disease Staging per NKF:</content>
<content></content>
<content>Stage I & II GFR >=60 Normal to Mildly Decreased</content>
<content>Stage III GFR 30- 59 Moderately Decreased</content>
<content>Stage IV GFR 15-29 Severely Decreased</content>
<content>Stage V GFR <15 Very Little GFR Left</content>
<content>ESRD GFR <15 on CERTIFIED ORTHOTIC FITTER</content>
<content></content> Creatinine For GFR 0.55 mg/dL 0.55-1.30 Normal (applies to non -numeric results) [facility] ([facility]) Sodium Level 142 meq/L 136-145 Normal (applies to non-numeric res ults) [facility] ([facility]) Carbon Dioxide Level 31 mmol/L 20-29 Above high normal [facility] ([facility]) Chloride Level 109 meq/L 98-107 Above high normal [facility] ([facility]) Potassium Serum 4.1 meq/L 3.5-5.1 Normal (applies to non-numeric results) [facility] ([facility]) Anion Gap 2 meq/L 8-16 Below low normal [facility] ( [facility]) Calcium Level 9.6 mg/dL 8.5-10.1 Normal (applies to non-numeric re sults) [facility] ([facility]) ID Date Data Source [id number] 05/29/2021 11:48:00 AM EDT [facility] ([facility] Name Value Range Interpretation Code Description Data Karen rce(s) Supporting Document(s) White Blood Count 8.7 10 4.0-10.0 Normal (applies to non-numeri c results) [facility] ([facility]) Red Blood Count 4.55 10 4.00-5.40 Normal (applies to non-numeric results) [facility] ([facility]) Hemoglobin 13.5 g/dL 12.0-15.5 Normal (applies to non-numeric resul ts) [facility] ([facility]) Hematocrit 41.3 % 36.0-47.0 Normal (applies to non-numeric resul ts) [facility] ([facility]) Mean Corpuscular Volume 90.8 fl 80.0-96.0 Normal ( applies to non-numeric results) [facility] ([facility] Mean Corpuscular Hemoglobin 29.7 pg 27.0-33.0 Norm al (applies to non-numeric results) [facility] ([facility] Platelet Count, Automated 207 10 150-450 Normal (applies to non-numeric results) [facility] ([facility] Neutrophils % 63.0 % 36.0-66.0 Normal (applies to non-numeric re sults) [facility] ([facility]) Red Cell Distribution Width 18.2 % 11.5-14.5 Above high normal [facility] ([facility]) Mean Corpuscular HGB Conc 32.7 g/dL 32.0-36.5 Normal (applies to non-numeric results) [facility] ([facility] Eos % 5.4 % 0.0-3.0 Above high normal [facility] ([facility]) [place] % 4.7 % 2.0-8.0 Normal (applies to non-numeric resul ts) [facility] ([facility]) Lymph % 25.8 % 24.0-44.0 Normal (applies to non-numeric resul ts) [facility] ([facility]) Nucleated Red Blood Cell % 0.0 % 0-0 Normal (applies to n on-numeric results) [facility] ([facility]) Baso % 0.6 % 0.0-1.0 Normal (applies to non-numeric resul ts) [facility] ([facility]) Immature Granulocyte % 0.5 % 0-3.0 Normal (applies to non-n umeric results) [facility] ([facility]) Neutrophils # 5.5 10 1.5-8.5 Normal (applies to non-numeric re sults) [facility] ([facility]) [place] # 0.4 10 0.0-0.8 Normal (applies to non-numeric resul ts) [facility] ([facility]) Eos # 0.5 10 0.0-0.5 Normal (applies to non-numeric resul ts) [facility] ([facility]) Lymph # 2.3 10 1.5-5.0 Normal (applies to non-numeric resul ts) [facility] ([facility]) Baso # 0.1 10 0.0-0.2 Normal (applies to non-numeric resul ts) [facility] ([facility]) ID Date Data Source [id number] 03/09/2021 02:46:04 PM EDT [facility] PCName: Lisa McclellanDOB: 1965Provider: Dianne Rosales: 03/09/2021 Reason For VisitLisa Mcclellan is here today for L Spine. Lisa has not had the Covid vaccine. Lisa Mcclellan is an established patient here for follow up and Lisa Mcclellan is here for evaluation of MRI results. Patient reports no changes since her last visit. NKI. The patient has not had a course of physical therapy for greater than 4 weeks. The patient has not had a course of NSAIDs for greater than 4 weeks. 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 Patient is not working at this time due to unrelated issues. PlanChief complaint patient states here for MRI follow-upThis is a pleasant female with a history of low back pain and over the past 3-4 months patient developed right buttock pain, lateral hip pain and lateral thigh pain. She reports numbness the right lateral thigh as well as the bilateral feet. She has had 3 previous back surgeries.Her medical history significant for COPD, heart disease, hypertension, cardiac disorder, polymyalgia. She is a current every day smoker and smokes 1 pack per dayMRI with contrast is ordered for the patientPatient states her pain is not improved since her last visit. Her pain is stable. It affects the right hip, groin, the anterior thigh. The pain is moderate to severe. Is present every day and constant throb today. Is worse with walking and laying on her right side, worse with lumbar flexion. She feels subjective weakness the right leg. Nothing has provided significant improvement The patient demonstrates a normal gait . There is no posterior tenderness in the lower back. Motor strength is 5 out of 5 from L2-S1 and sensation is intact from L2-S1 bilaterally. Reflexes are 2+ at the patellar tendon and at the Achilles bilaterally. Straight leg raise is negative bilaterally. Contralateral straight leg raise is negative. There is no hip pain with internal or external rotation. Brisk distal capillary refill bilaterallyX-rays reviewed from February 11, 2001 surgery pedis. No scoliosis. There is severe DDD from L4-S4Yqvfvm spine MRI reviewed with contrast extending 2020 surgery. Centrally, the canals pain. There is L5-S1 severe left foraminal stenosis. I reviewed the report as well. On report, the radiologist states that at L4-5 and L5-S1 there is moderate bilateral lateral recess and foraminal stenosisAssessmentlumbar radiculopathy, L4 S1 foraminal stenosis with DDDtype: radiculopathylocation: lumbaretiology: degenerative stenosisplan:1. Medication: anti-inflammatories as needed. Medrol Dosepak and diclofenac prescribed for pain2. Imaging: No further imaging at this time3. Injection: lumbar spine right L4-5 and L5-S1 transforaminal injection4. Activity:as tolerated. 5. Referral: [place] [facility] injection 6. Surgical management deferred at this point followup after after injection. We discussed that the treatment if she response to injections the L4-5 and L5-S1 fusion. She would need to pass his nicotine test. There is no significant central stenosis, the stenosis is at the neural foramen bilaterally with severe DDD. Signatures Electronically signed by : Jay Jay Rosales M.D.; Mar 09 2021 2:46PM EST (Author) Name Value Range Interpretation Code Description Data Karen rce(s) Supporting Document(s) ID Date Data Source [id number] 03/05/2021 09:17:00 AM EDT [facility] PATIENT MR#: [id number] NAME: Lisa Chan ADATE OF : 1965REFERRING PHYSICIAN: Jay Jay Fitzpatrick DATE: 03/04/2021XAM: LUMBAR SPINE MRI WITHOUT AND WITH GADOLINIUMINDICATION: Low back pain. Right hip pain.COMPARISON: 05/26/2013.TECHNIQUE: Multiple MRI sequences of the lumbar spine were obtained in thesagittal and axial planes before and after administration of IV gadolinium. CONTRAST: 15 ML CLARISCAN.FINDINGS: There is normal lumbar lordosis. Normal vertebral body heights and alignmentare maintained.The patient appears to be status post laminectomies at L4-L5 and L5- S1. Broad-based concentric disc bulging and facet arthropathy at both levels resultsin moderate bilateral lateral recess and foraminal stenosis.At L3-L4, a broad-based concentric disc bulge with associated facet arthropathyresults in moderate central spinal canal stenosis, without significant neuralforaminal narrowing.Otherwise, the remainder of the lumbar levels appear unremarkable, withoutevidence of disc herniation, central spinal canal stenosis, or neural foraminalnarrowing.No paravertebral or epidural mass is identified. No abnormal intrathecalenhancement is seen. The conus appears unremarkable.IMPRESSION: Since 05/26/2013,Status post laminectomies at L4-L5 and L5-S1, with residual broad-basedconcentric disc bulging and facet arthropathy resulting in moderate bilaterallateral recess and foraminal stenosis.Moderate central spinal canal stenosis at L3-L4, secondary to broad-basedconcentric disc bulge and facet arthropathy.Read by: Hari Sandersoncribed by: Hari King Date: 03/05/2021 9:17:00 AMElectronically signed by: Hari Neal signed: 03/05/2021 9:17:29 AM Name Value Range Interpretation Code Description Data Karen rce(s) Supporting Document(s) ID Date Data Source [id number] 02/12/2021 11:38:10 AM EDT [facility] PCName: Lisa McclellanDOB: 1965Provider: Edin Santos: 02/11/2021 Reason For VisitLisa Mcclellan is here today for L Spine. Lisa has not had the Covid vaccine. Lisa Mcclellan is a new patient. L Spine eval, no films or PT, NKI, reports numbness to CRISTAL feet which causes her fall NKI. The patient has not had a course of physical therapy for greater than 4 weeks. The patient has not had a course of NSAIDs for greater than 4 weeks. 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 History of Present IllnessThis is a 55-year-old female complaining of increased lower back pain. Over the last few months, the pain radiates into the right buttock, right lateral hip and lateral thigh. She gets numbness in the right lateral thigh as well as in both feet. She has had 3 previous back surgeries Lumbar discectomies L4-5 and L5-S1. No bladder or bowel dysfunction. No left leg pain. Lower back pain worsens with increased bending, lifting and twisting. She has multiple drug allergies so she does not take any pain medication. She has had extensive physical therapy in the past without relief. Results/DataXRays were ordered, obtained and interpreted today in the office. Indication: pain/dysfunction. Site: Lumbar Spine Views: 4 Views, AP/Lateral/Flexion/Extension Severe disc space narrowing L4-S1. Plan BUN ( Blood Urea Nitrogen ); Status:Active; Requested for:11Feb2021; Perform:Outside Facility; Due:21Feb2021; Last Updated By:Tawnya Toscano; 02/11/2021 1:17:36 PM;Ordered; For:Lower back pain, Lumbar herniated disc, Lumbar radiculopathy; Ordered By:Chaz Santos; Creatinine (CREATININE, GFR, GFR ( AMER), GFR INTERPRETATION);Status:Active; Requested for:11Feb2021; Perform:Outside Facility; Due:21Feb2021; Last Updated By:Tawnya Toscano; 02/11/2021 1:17:36 PM;Ordered; For:Lower back pain, Lumbar herniated disc, Lumbar radiculopathy; Ordered By:Chaz Santos; X-Ray I Lumbosacral Comp - 4 views (XRays were ordered, obtained and interpretedtoday in the office. Indication: pain/dysfunction.); Status:Complete; Done: 11Feb2021 Perform:SOS22; Due:25Feb2021; Last Updated By:Theresa Hoffman; 02/11/2021 12:54:14 PM;Ordered; For:Lower back pain; Ordered By:Chaz Santos; You need to quit smoking.; Status:Complete; Done: 11Feb2021 Last Updated By:Elsie Brewer; 02/11/2021 12:51:06 PM;Ordered; For:Health Maintenance; Ordered By:Chaz Santos; MRI (SOS) Referral Diagnostic Diagnostic Status: Need Information - FinancialAuthorization Requested for: 11Feb2021 Ordered;For: Lower back pain, Lumbar herniated disc, Lumbar radiculopathy; Ordered By: Chaz Santos Performed: Due: 25Feb2021; Last Updated By: Tawnya Toscano; 02/11/2021 1:16:37 PMPatient will follow up with: : NEW RATNA after testingMRI Ordered Contrast : 02: without and with Gado IVLaterality: : _Not Applicable Plan, Assessment and Recommendation(s) Assessment: Degenerative disc disease L4-S1, acute on chronic low back pain, lumbar radiculitis. Plan: I recommend a lumbar MRI scan to further evaluate her symptoms and consultation with Dr. Rosales. Follow-up after that scan is performed. She agrees with the plan. Work / School NoteThe patient is working at this time. This document was dictated and electronically signed using [employer] software. A reasonable attempt at proof reading has been made to minimize errors. Please call with any questions. Signatures Electronically signed by : Paulina Rapp; Feb 11 2021 1:19PM EST (Author) Electronically signed by : Jay Jay Rosales M.D.; Feb 12 2021 11:38AM EST Name Value Range Interpretation Code Description Data Karen rce(s) Supporting Document(s) ID Date Data Source CARSON HIP COMPLETE (AP/LAT) 01/21/2021 12:00:00 AM EDT [facility] Name Value Range Interpretation Code Description Data [facility] rce(s) Supporting Document(s) CARSON HIP COMPLETE (AP/LAT) eCW 1 ([facility]) ID Date Data Source [id number] 2020 03:43:00 AM EDT [facility] ([facility], ) Name Value Range Interpretation Code Description Data [facility] rce(s) Supporting Document(s) Surgical pathology study Laboratory test result [facility] ([facility], ) FINAL DIAGNOSIS Appendix and portion of cecum, excision: Ruptured acute appendicitis with associated serositis. 12/16/2020 - 1333 CLINICAL DIAGNOSIS Acute appendicitis 2020 - 1428 GROSS DIAGNOSIS Received in formalin labeled "appendix with portion of cecum" is an approximately 6.5 by maximally 2.5 x 2 cm. portion of appendix with attached cecum. A staple line is noted on the cecal aspect. The appendix shows serosal congestion with focal purulent exudate. Sectioning of the appendix reveals a small 0.7 cm. fecalith with associated surrounding hemorrhage and probable small perforation. The rest of the cecum is unremarkable. [employer] sections are submitted in two blocks. -AMBER 12/16/2020 - 1334 Signed Barbara Crawford MD 12/16/2020 1335 ID Date Data Source [id number] 12/14/2020 11:02:00 PM EDT [facility] ([facility], ) Name Value Range Interpretation Code Description Data [facility] Supporting Document(s) Coronavirus 2019 Nasopharygeal Laboratory test result [facility] ([facility], ) Laboratory test finding (navigational concept) Laboratory test r esult Normal (applies to non-numeric results) [facility] ([facility], ) A false negative result may occur if a s pecimen is improperly collected, transported or handled. False negative results may also occur if inadequate numbers of organisms are present in the specimen. As with any molecular test, mutations within the target regions of Xpert Xpress SARS-CoV-2 could affect primer and/or probe binding resulting in failure to detect the presence of virus. This test cannot rule out diseases caused by other bacterial or viral pathogens. DISCLAIMER: Testing was performed using the [employer] SARS-CoV-2 test. This test was developed and its performance characteristics determined by [employer]. This test has not been FDA cleared or approved. This test has been authorized by FDA under an Emergency Use Authorization (EUA). This test is only authorized for the duration of time the declaration that circumstances exist justifying the authorization of the emergency use of in vitro diagnostic tests for detection of SARS-CoV-2 virus and/or diagnosis of COVID-19 infection under section 564(b)(1) of the Act, 21 U.S.C. 360bbb-3(b)(1), unless the authorization is terminated or revoked sooner. ID Date Data Source [id number] 12/14/2020 11:02:00 PM EDT [facility] Name Value Range Interpretation Code Description Data Karen rce(s) Supporting Document(s) SARS coronavirus 2 RNA [Presence] in Res piratory specimen by BLAKE with probe detection NEGATIVE [facility] This lab was ordered by [facility] a nd reported by [facility]. ID Date Data Source [id number] 12/14/2020 03:09:00 PM EDT [facility] Name Value Range Interpretation Code Description Data Karen rce(s) Supporting Document(s) White Blood Count 10.8 4.0-10.0 [facility] ([facility]) Red Blood Count 4.35 4.00-5.40 [facility] ([facility]) Platelets 228 150-450 [facility] ([facility]) Hemoglobin 12.1 [facility] ([facility]) Hematocrit 37.9 [facility] ([facility]) ID Date Data Source [id number] 12/14/2020 03:09:00 PM EDT [facility] Name Value Range Interpretation Code Description Data Karen rce(s) Supporting Document(s) Lipoprotein lipase [Enzymatic activity/volume] in Serum or Plasma 158 [facility] ([facility]) ID Date Data Source [id number] 12/14/2020 03:09:00 PM EDT [facility] Name Value Range Interpretation Code Description Data Karen rce(s) Supporting Document(s) Alanine aminotransferase [Enzymatic activity/volume] i n Serum or Plasma 16 30-65 [facility] ([facility] [place]) Aspartate aminotransferase [Enzymatic activity/volume] in Se rum or Plasma 7 7-37 [facility] ([facility]) Alk Phos 97 50-136 [facility] [place] Total Bilirubin 0.3 0.0-1.0 [facility] ([facility]) Albumin 3.8 3.2-5.2 [facility] [place] Total Protein 7.1 6.4-8.2 [facility] ([facility] [place]) A/G Ratio 1.2 1.00-1.93 [facility] [place] Procedure Social History Code Duration Value Status Description Data Source(s ) Smoking 07/15/2021 12:00:00 AM EDT Current Smoker completed Curre nt Smoker [facility]CW1 ([facility]) Smoking 07/15/2021 12:00:00 AM EDT Current Smoker completed Curre nt Smoker eCW1 ([facility]) Smoking 06/16/2021 12:00:00 AM EDT Current Smoker completed Curre nt Smoker eCW1 ([facility]) Smoking 06/16/2021 12:00:00 AM EDT Current Smoker completed Curre nt Smoker eCW1 ([facility]) Alcohol intake 06/11/2021 12:00:00 AM EDT Ex-drinker (finding) comp leted Ex- drinker (finding) [facility] Tobacco use and exposure 06/11/2021 12:00:00 AM EDT Never used co mpleted Never used [facility] Cigarettes smoked current (pack per day) - Reported 06/11/20 12:00:00 AM EDT UNK completed [facility] Smoking 06/11/2021 12:00:00 AM EDT Current every day smoker co mpleted Current every day smoker [facility] Smoking 05/20/2021 12:00:00 AM EDT Current Smoker completed Curre nt Smoker [facility]CW1 ([facility]) Smoking 05/20/2021 12:00:00 AM EDT Current Smoker completed Curre nt Smoker eCW1 ([facility]) Smoking 04/15/2021 12:00:00 AM EDT Current Smoker completed Curre nt Smoker eCW1 ([facility]) Smoking 04/15/2021 12:00:00 AM EDT Current Smoker completed Curre nt Smoker eCW1 ([facility]) Smoking 04/15/2021 12:00:00 AM EDT Current Smoker completed Curre nt Smoker eCW1 ([facility]) Smoking 04/15/2021 12:00:00 AM EDT Current Smoker completed Curre nt Smoker eCW1 ([facility]) Smoking 04/15/2021 12:00:00 AM EDT Current Smoker completed Curre nt Smoker eCW1 ([facility]) Smoking 04/15/2021 12:00:00 AM EDT Current Smoker completed Curre nt Smoker eCW1 ([facility]) Smoking 02/19/2021 12:00:00 AM EDT Current Smoker completed Curre nt Smoker eCW1 ([facility]) Smoking 02/19/2021 12:00:00 AM EDT Current Smoker completed Curre nt Smoker eCW1 ([facility]) Smoking 01/26/2021 12:00:00 AM EDT Current Smoker completed Curre nt Smoker eCW1 ([facility]) Smoking 01/26/2021 12:00:00 AM EDT Current Smoker completed Curre nt Smoker eCW1 ([facility]) Smoking 01/26/2021 12:00:00 AM EDT Current Smoker completed Curre nt Smoker eCW1 ([facility]) Smoking 01/26/2021 12:00:00 AM EDT Current Smoker completed Curre nt Smoker eCW1 ([facility]) Smoking 01/26/2021 12:00:00 AM EDT Current Smoker completed Curre nt Smoker eCW1 ([facility]) Smoking 01/08/2021 12:00:00 AM EDT Current Smoker completed Curre nt Smoker eCW1 ([facility]) Vital Signs ID Date Data Source [id number] Name Value Range Interpretation Code Description Data Source(s) Body weight 156.12 [lb_av] 156.12 [lb_av] MEDEN T ([facility]) Body temperature 96.9 [degF] 96.9 [degF] [facility] ([facility]) Body height 66.5 [in_i] 66.5 [in_i] [facility] ([facility]) 5'6.50" Body mass index (BMI) [Ratio] 24.8 kg/m2 24.8 k g/m2 [facility] ([facility]) Body weight 155.8 [lb_av] 155.8 [lb_av] eCW1 ([facility]) Body weight 70.67 kg 70.67 kg eCW1 ([facility]) Body height 67.75 [in_i] 67.75 [in_i] eCW1 ([facility]) Body mass index (BMI) [Ratio] 23.86 kg/m2 23.86 kg/m2 eCW1 [facility]) Heart rate 90 /min 90 /min eCW1 ([facility]) Respiratory rate 20 /min 20 /min eCW1 ([facility]) Body temperature 98.2 [degF] 98.2 [degF] [facility]CW[facility] Systolic blood pressure 108 mm[Hg] 108 mm[Hg] e CW1 ([facility]) Diastolic blood pressure 72 mm[Hg] 72 mm[Hg] eCW1 ([facility]) Body weight 157 [lb_av] 157 [lb_av] eCW1 ([facility]) Body weight 71.21 kg 71.21 kg eCW1 ([facility]) Body height 67.75 [in_i] 67.75 [in_i] eCW1 ([facility]) Body mass index (BMI) [Ratio] 24.05 kg/m2 24.05 kg/m2 eCW1 ([facility]) Heart rate 93 /min 93 /min eCW1 ([facility]) Respiratory rate 20 /min 20 /min eCW1 ([facility]) Body temperature 98.4 [degF] 98.4 [degF] eCW1 ( [facility]) Systolic blood pressure 130 mm[Hg] 130 mm[Hg] e CW1 ([facility]) Diastolic blood pressure 74 mm[Hg] 74 mm[Hg] eCW1 [facility]) Systolic blood pressure 116 mm[Hg] 116 mm[Hg] [facility] Diastolic blood pressure 76 mm[Hg] 76 mm[Hg] [facility] Heart rate 69 /min 69 /min [facility] Body temperature 36.56 Oumou 36.56 Oumou [facility] Respiratory rate 16 /min 16 /min [facility] Oxygen saturation in Arterial blood by Pulse oximetry 95 % 95 % [facility] Body height 170.2 cm 170.2 cm [facility] Body weight 70.6 kg 70.6 kg [facility] Body mass index (BMI) [Ratio] 24.38 kg/m2 24.38 kg/m2 [facility] Body weight 158 [lb_av] 158 [lb_av] W1 ([facility]) Body height 67.75 [in_i] 67.75 [in_i] W1 ([facility]) Body mass index (BMI) [Ratio] 24.2 kg/m2 24.2 k g/m2 eCW1 [facility]) Systolic blood pressure 132 mm[Hg] 132 mm[Hg] e CW1 ([facility]) Diastolic blood pressure 78 mm[Hg] 78 mm[Hg] eCW1 ([facility]) Body weight 149.00 [lb_av] 149.00 [lb_av] JULIA Snow ([facility]) Body height 67 [in_i] 67 [in_i] DOREEN ([facility]) 5'7" Body mass index (BMI) [Ratio] 23.3 kg/m2 23.3 k g/m2 DOREEN ([facility]) Body weight 159 [lb_av] 159 [lb_av] eCW1 ([facility]) Body height 67.75 [in_i] 67.75 [in_i] eCW1 ([facility]) Body mass index (BMI) [Ratio] 24.35 kg/m2 24.35 kg/m2 eCW1 [facility]) Systolic blood pressure 132 mm[Hg] 132 mm[Hg] e CW1 ([facility]) Diastolic blood pressure 78 mm[Hg] 78 mm[Hg] eCW1 ([facility]) Body weight 158.12 [lb_av] 158.12 [lb_av] eCW1 ([facility]) Body height 67.75 [in_i] 67.75 [in_i] eCW1 ([facility]) Body mass index (BMI) [Ratio] 24.22 kg/m2 24.22 kg/m2 eCW1 ([facility]) Heart rate 81 /min 81 /min eCW1 ([facility]) Respiratory rate 18 /min 18 /min eCW1 ([facility]) Body temperature 97.9 [degF] 97.9 [degF] eCW1 ( [facility]) Systolic blood pressure 124 mm[Hg] 124 mm[Hg] e CW1 ([facility]) Diastolic blood pressure 72 mm[Hg] 72 mm[Hg] eCW1 ([facility]) Body mass index (BMI) [Ratio] 25.5 kg/m2 25.5 k g/m2 [facility] ([facility]) Diastolic blood pressure 80 mm[Hg] 80 mm[Hg] [facility] ([facility]) sitting, regular cuff Systolic blood pressure 144 mm[Hg] 144 mm[Hg] M EDENT ([facility]) sitting Diastolic blood pressure 84 mm[Hg] 84 mm[Hg] [facility] ([facility]) sitting Systolic blood pressure 144 mm[Hg] 144 mm[Hg] M EDENT ([facility]) sitting, regular cuff Heart rate 84 /min 84 /min [facility] ([facility]) Regular Respiratory rate 16 /min 16 /min [facility] ( [facility]) Body weight 163.00 [lb_av] 163.00 [lb_av] JULIA Snow ([facility]) Body height 67 [in_i] 67 [in_i] DOREEN ([facility]) 5'7" Body weight 164 [lb_av] 164 [lb_av] eCW1 ([facility]) Body height 67.75 [in_i] 67.75 [in_i] eCW1 ([facility]) Body mass index (BMI) [Ratio] 25.12 kg/m2 25.12 kg/m2 eCW1 [facility]) Heart rate 90 /min 90 /min eCW1 ([facility]) Respiratory rate 18 /min 18 /min eCW1 ([facility]) Body temperature 98.1 [degF] 98.1 [degF] eCW1 ( [facility]) Systolic blood pressure 135 mm[Hg] 135 mm[Hg] e CW1 ([facility]) Diastolic blood pressure 85 mm[Hg] 85 mm[Hg] eCW1 ([facility]) Body weight 167 [lb_av] 167 [lb_av] eCW1 ([facility]) Body weight 75.75 kg 75.75 kg eCW1 ([facility] Body height 67.75 [in_i] 67.75 [in_i] eCW1 ([facility]) Body mass index (BMI) [Ratio] 25.58 kg/m2 25.58 kg/m2 eCW1 ([facility]) Systolic blood pressure 130 mm[Hg] 130 mm[Hg] e CW1 ([facility]) Diastolic blood pressure 70 mm[Hg] 70 mm[Hg] eCW1 ([facility]) Body weight 165 [lb_av] 165 [lb_av] eCW1 ([facility]) Body height 67.75 [in_i] 67.75 [in_i] eCW1 ([facility]) Body mass index (BMI) [Ratio] 25.27 kg/m2 25.27 kg/m2 eCW1 ([facility]) Heart rate 90 /min 90 /min eCW1 ([facility]) Respiratory rate 18 /min 18 /min eCW1 ([facility]) Body temperature 98.5 [degF] 98.5 [degF] eCW1 ( [facility]) Systolic blood pressure 134 mm[Hg] 134 mm[Hg] e CW1 ([facility]) Diastolic blood pressure 85 mm[Hg] 85 mm[Hg] eCW1 ([facility]) Body weight 165 [lb_av] 165 [lb_av] eCW1 ([facility]) Body weight 74.84 kg 74.84 kg eCW1 ([facility] Body height 67.75 [in_i] 67.75 [in_i] eCW1 ([facility]) Body mass index (BMI) [Ratio] 25.27 kg/m2 25.27 kg/m2 eCW1 [facility]) Systolic blood pressure 136 mm[Hg] 136 mm[Hg] e CW1 ([facility]) Diastolic blood pressure 80 mm[Hg] 80 mm[Hg] eCW1 ([facility]) Body height 67 [in_i] 67 [in_i] [facility] ([facility], ) 5'7" Hitchcock body weight 135 [lb_av] 135 [lb_av] MEDEN T ([facility], ) Body weight 76.205 kg 76.205 kg [facility] ([facility], ) Systolic blood pressure 140 mm[Hg] 140 mm[Hg] M EDENT ([facility], ) Diastolic blood pressure 70 mm[Hg] 70 mm[Hg] [facility] Body weight 168.00 [lb_av] 168.00 [lb_av] MEDEN T ([facility], ) Body mass index (BMI) [Ratio] 26.3 kg/m2 26.3 k g/m2 [facility] ([facility], ) Body surface area Derived from formula 1.88 m2 1.88 m2 [facility] ([facility], ) Body temperature 97.3 [degF] 97.3 [degF] [facility] ([facility]) Body height 67 [in_i] 67 [in_i] [facility] ([facility]) 5'7" Body weight 162.00 [lb_av] 162.00 [lb_av] MEDEN T ([facility]) Body mass index (BMI) [Ratio] 25.4 kg/m2 25.4 k g/m2 [facility] ([facility]) Patient Treatment Plan of Care Planned Activity Planned Date Details Description Data Source (s) gabapentin 300 MG Oral Capsule 06/16/2021 12:00:00 AM EDT [facility] gabapentin 100 MG Oral Capsule 06/16/2021 12:00:00 AM EDT eCW1 ([facility]) normal saline flush 0.9 % injection 3 mL 06/11/2021 03:00:00 PM EDT [facility] normal saline flush 0.9 % injection 3 mL 06/11/2021 02:00:00 PM EDT [facility] sodium chloride 0.9% (NS) infusion 06/11/2021 11:00:00 AM EDT [facility] Acetaminophen 325 MG Oral Tablet 06/11/2021 10:44:03 AM EDT [facility] clopidogrel 75 MG Oral Tablet 06/11/2021 12:00:00 AM EDT [facility] Ticagrelor (BRILINTA PO) [facility] clopidogrel 75 MG Oral Tablet [facility]
--- OUTSIDE RECORDS SUMMARY | 2021-07-31 07:06 | CCD | Continuity of Care Document ---
Author Author Stress Nuclear/Reg Treadmill Lisa Organization Unknown Address [address] [address], [place] [address] Phone [phone] Care Team Providers Care Assistant Director Of Financial Aid Name Role Phone Chris Stevenson AUTM [phone] Candida Smith MD AUTM [phone] Cameron Aguilar MD AUTM [phone] Wolf Correa DO AUTM [phone] Patty Jara MICROFICHE DUPLICATOR AUTM [phone] Robbie Trimble MD AUTM [phone] Problems Active Problems Provider Date Coronary arteriosclerosis Jo Boone PA-C Onset: 2013 Old myocardial infarction Jo Boone PA-C Onset: 2013 Essential hypertension NATALIIA Cunha-C Onset: 6 Pure hypercholesterolemia NATALIIA Cunha-C Onset: 2013 Cigarette smoker MARK CunhaC Onset: 09/27/2016 Syncope and collapse NATALIIA Cunha-C Onset: 08/24/2017 Paroxysmal supraventricular tachycardia Jo Boone PA-C Onset: 02/27/2018 Social History Type Date Description [...] Note Liver Function Test/ Liver Hep 12/14/2020 [facility] - not interfaced (315)- - Ast/Sgot 7 7-37 Alt/SGPT 16 30-65 Alk Phos 97 50-136 Albumin 3.8 3.2-5.2 Total Bilirubin 0.3 0.0-1.0 Total Protein 7.1 6.4-8.2 A/G Ratio 1.2 1.00-1.93 Laboratory test finding 12/14/2020 [facility] - not interf aced (315)- - Lipase 158 CBC without Differential 12/14/2020 [facility] - not inter faced (315)- - White Blood Count 10.8 High 4.0-10.0 Red Blood Count 4.35 4.00-5.40 Platelets 228 150-450 Hemoglobin 12.1 Hematocrit 37.9 Procedures Date Code Description Status 05/08/2021 34626 Stress Echocardiography Complete d 05/08/2021 82037 Doppler Color Flow Velocity Zeke ing Completed 02/26/2021 36761 Smoking & Tobacco Ce ssation Counseling Visit Intermediate 3-10Min Completed 02/26/2021 87421 Office/Outpatient Established Mo d MDM 30-39 Min Completed 02/26/2021 46875 ECG 12-Lead Completed Medical Devices Description No Information Available Encounters Type Date Location Provider Dx Diagnosis Office Visit 02/26/2021 9:45a Main Office oJ Boone PA-C I25.1 18 Athscl heart disease of [place] cor art w oth ang pctrs I25.2 Old myocardial infarction I10 Essential (primary) hyperten aline I47.1 Supraventricular tachycardia E78.00 Pure hypercholesterolemia, u nspecified F17.218 Nicotine dependence, cigaret jamir, w oth disorders Z87.891 Personal history of nicotine dependence Z71.6 Tobacco abuse counseling Assessments Date Code Description Provider 05/08/2021 R06.02 Shortness of breath Stress Nucle ar/Reg Treadmill 05/08/2021 I25.118 Atherosclerotic hear t disease of [place] coronary artery with other forms of angina pectoris Stress Nuclear/Reg Treadmill 02/26/2021 I25.118 Atherosclerotic hear t disease of [place] coronary artery with other forms of angina [...] Boone PA-C* I25.118 Atherosclerotic heart disease of [place] coronary artery with other forms of angina [...] ECHO AUTH EMR-EXPIRES 06/19/21. [place]ated [address] [facility], [facility] [address] [phone]
[2021-07-31] MEDS ORDERED: ASPI81CH4 PO (07:10)
[2021-07-31 07:29] LABS: HEMATOCRIT 43.4 % (36.0-47.0); HEMOGLOBIN 14.4 g/dl (12.0-15.5); MEAN CORPUSCULAR HEMOGLOBIN 31.4 pg (27.0-33.0); MEAN CORPUSCULAR HGB CONC 33.2 g/dl (32.0-36.5); MEAN CORPUSCULAR VOLUME 94.6 fl (80.0-96.0); PLATELET COUNT, AUTOMATED 222 10^3/uL (150-450); RED BLOOD COUNT 4.59 10^6/uL (4.00-5.40); WHITE BLOOD COUNT 8.1 10^3/uL (4.0-10.0)
[2021-07-31] MEDS ORDERED: SCOPOLAMINE 1MG TRANSDERMAL PATCH TOP ONE (08:15)
[2021-07-31] MEDS ORDERED: BUPIVACAINE HCL 0.25% 10ML VIAL As Ordered ONE (08:16)
[2021-07-31] MEDS ORDERED: ONDANSETRON 4MG/2ML VIAL As Ordered ONE (08:52)
[2021-07-31] MEDS ORDERED: LIDOCAINE 2% 100MG/5ML SDV (FOR ANES.) As Ordered ONE (08:52)
[2021-07-31] MEDS ORDERED: HYDROmorphone HCL 2 MG/ML 1ML VIAL As Ordered ONE (08:52)
[2021-07-31] MEDS ORDERED: dexameTHASONE 4 MG/ML 1ML VIAL (J1100 PER 1MG) As Ordered ONE (08:52)
[2021-07-31] MEDS ORDERED: PHENYLephrine 500MCG 5ML (100MCG/ML) SYRINGE As Ordered ONE (08:52)
[2021-07-31] MEDS ORDERED: fentaNYL 100 MCG/2 ML INJECTION (J3010) As Ordered ONE (08:52)
[2021-07-31] MEDS ORDERED: MIDAZOLAM INJ 2MG/2ML VIAL (J2250 PER 1MG) As Ordered ONE (08:52)
[2021-07-31] MEDS ORDERED: propofoL 200 MG/20 ML VIAL As Ordered ONE (08:52)
[2021-07-31] MEDS ORDERED: SUGAMMADEX SODIUM 500 MG/5 ML VIAL (BRIDION) As Ordered ONE (08:52)
[2021-07-31] MEDS ORDERED: ROCURONIUM BROMIDE 50 MG/5 ML VIAL As Ordered ONE (08:52)
[2021-07-31] MEDS ORDERED: ePHEDrine SULFATE 25 MG/5 ML(5MG/ML) SYRINGE As Ordered ONE (09:06)
--- NOTE | 2021-07-31 10:16 | ROOPDOC ---
[facility] Report Of Operation Report of Operation DATE OF PROCEDURE: 07/31/21 PREPROCEDURE DIAGNOSES: Bilateral complex ovarian cysts, pelvic pain. POSTPROCEDURE DIAGNOSES: Same. PROCEDURE PERFORMED: Laparoscopic bilateral salpingo-oophorectomy. SURGEON: Margoth Delgado MD ANESTHESIA: GETA. ESTIMATED BLOOD LOSS: Approximately 10 mL. COMPLICATIONS: none. FINDINGS: Surgically absent uterus. 3 to 4 cm complex cystic mass involving the right ovary. 7 to 8 cm complex cystic mass involving the left ovary. Probable necrotic epiploica in the posterior cul-de-sac. No significant abdominal pelvic adhesions seen. SPECIMENS REMOVED: Bilateral ovaries and fallopian tubes PROCEDURE NOTE: The patient was taken to the operating room where general endotracheal anesthesia was induced. She was prepped and draped in a sterile fashion in the dorsal lithotomy position. The bladder was emptied with a catheter. A sponge stick was placed in the vagina to use as a manipulator. A periumbilical incision was made with a scalpel. A Veress needle was placed through this incision while tenting up on the skin of the abdomen. An intra- abdominal location the Veress needle was assessed with the use of a saline filled syringe. A pneumoperitoneum was created. The Veress needle was removed. An 11 mm trocar using Visiport was inserted through this incision. Two 5 mm suprapubic port were placed under direct visualization. A grasping instrument was used to elevate each fallopian tube. A LigaSure device was used to coagulate and incise the IP ligaments and broad ligament attachments to the ovaries. Both ovaries and tubes were removed through the suprapubic port. The cysts were drained outside the abdomen. The pneumoperitoneum was released. All instruments were removed. The skin was closed with 4-0 Monocryl subcuticular sutures. Sponge instrument and needle counts were correct. The patient went to the recovery room in stable condition. MARGOTH DELGADO MD Jul 31, 2021 10:16
[2021-07-31] MEDS ORDERED: ONDANSETRON 4MG/2ML VIAL IV PRN (10:20)
[2021-07-31] MEDS ORDERED: LR 1,000 ML IV SCH ×2 (10:20)
[2021-07-31] MEDS ORDERED: PROMETHAZINE INJ 25 MG/ML VIAL (J2550) IV PRN (10:20)
[2021-07-31] MEDS ORDERED: fentaNYL 100 MCG/2 ML INJECTION (J3010) IV PRN (10:20)
[2021-07-31] MEDS ORDERED: PERCOCET 5MG/325MG TAB PO PRN (10:20)
[2021-07-31] MEDS: NORCO, ANEXSIA 5/325MG TABLET (HYDROcodone/ACETAMINOPHEN) PO PRN ×2 (10:42→11:15)
[2021-07-31 12:05] VITALS: BP 138/77
[2021-07-31] MEDS ORDERED: ONDA8TAB8 PO (20:26)
[2021-07-31] MEDS ORDERED: PERCOCET PO (20:26)
== END 2021-07-31 12:07 | disposition home or self-care (01) ==
LOC: M SDC 07:01
PROVIDERS: ATTEND Specialist
DX: N83.209 Unspecified ovarian cyst, unspecified side (principal); D27.9 Benign neoplasm of unspecified ovary; K21.9 Gastro-esophageal reflux disease without esophagitis; Z86.16 Personal history of COVID-19; Z79.899 Other long term (current) drug therapy; M79.7 Fibromyalgia; J44.9 Chronic obstructive pulmonary disease, unspecified; F41.9 Anxiety disorder, unspecified; F32.9 Major depressive disorder, single episode, unspecified; Z88.1 Allergy status to other antibiotic agents; Z79.82 Long term (current) use of aspirin; I25.10 Atherosclerotic heart disease of native coronary artery without angina pectoris; I10 Essential (primary) hypertension; E78.5 Hyperlipidemia, unspecified; Z88.5 Allergy status to narcotic agent; Z88.8 Allergy status to other drugs, medicaments and biological substances
CPT/HCPCS: 36415; 58661; 85027; 88305; J1100; J1170; J2250; J2370; J2405; J3010

== ENCOUNTER → 2021-10-02 | Outpatient (CLI) | payer OTHER ==
[~2021-10-02] MED LIST changes: +ASPI81CH4 PO; -LISI-898 PO; +LISI5TAB11 PO; -LR 1,000 ML IV ONE; +ONDA8TAB8 PO; +PERCOCET PO; +[UNRECOGNIZED DRUG - CODE] PO; -[UNRECOGNIZED DRUG - CODE] PO
== END ==
LOC: M WHC 13:48
PROVIDERS: ATTEND Nurse Practitioner Women's Health
DX: R92.8 Other abnormal and inconclusive findings on diagnostic imaging of breast (principal)
CPT/HCPCS: 77066; G0279

== ENCOUNTER → 2021-10-05 | Outpatient (CLI) | payer OTHER ==
[~2021-10-05] MED LIST changes: +ISOVUE-300 61% 50ML VIAL As Ordered ONE; +LIDOCAINE 1% MDV 20ML VIAL As Ordered ONE; +TRIAMCINOLONE ACETONIDE SUSP 40 MG/ML VIAL (J3301) As Ordered ONE
== END ==
LOC: M RADPRO 10:51
PROVIDERS: ATTEND Physician Assistant
DX: M16.11 Unilateral primary osteoarthritis, right hip (principal)
CPT/HCPCS: 20610; 77002; J3301; Q9967

== ENCOUNTER → 2022-05-13 | Outpatient (CLI) | payer OTHER ==
[~2022-05-13] MED LIST changes: -ISOVUE-300 61% 50ML VIAL As Ordered ONE; -LIDOCAINE 1% MDV 20ML VIAL As Ordered ONE; -TRIAMCINOLONE ACETONIDE SUSP 40 MG/ML VIAL (J3301) As Ordered ONE; +[UNRECOGNIZED DRUG - CODE] PO; -[UNRECOGNIZED DRUG - CODE] PO
[2022-05-13 13:15] LABS: BASO # 0.1 10^3/uL (0.0-0.2); BASO % 0.7 % (0.0-1.0); EOS # 0.2 10^3/uL (0.0-0.5); EOS % 3.1 % (0.0-3.0); HEMATOCRIT 42.1 % (36.0-47.0); HEMOGLOBIN 14.2 g/dl (12.0-15.5); LYMPH # 2.1 10^3/uL (1.5-5.0); LYMPH % 28.8 % (24.0-44.0); MEAN CORPUSCULAR HEMOGLOBIN 32.2 pg (27.0-33.0); MEAN CORPUSCULAR HGB CONC 33.7 g/dl (32.0-36.5); MEAN CORPUSCULAR VOLUME 95.5 fl (80.0-96.0); MONO # 0.3 10^3/uL (0.0-0.8); MONO % 4.4 % (2.0-8.0); NEUTROPHILS # 4.5 10^3/uL (1.5-8.5); NEUTROPHILS % 62.9 % (36.0-66.0); PLATELET COUNT, AUTOMATED 181 10^3/uL (150-450); RED BLOOD COUNT 4.41 10^6/uL (4.00-5.40); WHITE BLOOD COUNT 7.1 10^3/uL (4.0-10.0)
[2022-05-13 13:55] LABS: ALBUMIN 3.9 GM/DL (3.2-5.2); ALT/SGPT 17 U/L (12-78); BILIRUBIN,TOTAL 0.3 MG/DL (0.2-1.0); BLOOD UREA NITROGEN 8 MG/DL (7-18); CALCIUM LEVEL 9.7 MG/DL (8.5-10.1); CARBON DIOXIDE LEVEL 29 MEQ/L (21-32); CHLORIDE LEVEL 102 MEQ/L (98-107); CHOLESTEROL LEVEL 176 MG/DL (<200); CHOLESTEROL RISK RATIO 3.666 (<5); CREATININE FOR GFR 0.54 MG/DL (0.55-1.30); FREE T4 0.98 NG/DL (0.76-1.46); GLOMERULAR FILTRATION RATE > 60.0 (>51); GLUCOSE, FASTING 86 MG/DL (70-100); HDL CHOLESTEROL 48 MG/DL (>40); LDL CHOLESTEROL 102 MG/DL (<100); NON-HDL-C 128 MG/DL; POTASSIUM SERUM 3.9 MEQ/L (3.5-5.1); RHEUMATOID FACTOR QUANT < 10.0 IU/ML (<15.0); SODIUM LEVEL 134 MEQ/L (136-145); THYROID STIMULATING HORMONE 0.828 uIU/ML (0.358-3.740); TOTAL PROTEIN 6.5 GM/DL (6.4-8.2); TRIGLYCERIDES LEVEL 129 MG/DL (<150)
[2022-05-13 14:29] LABS: ERYTHROCYTE SEDIMENTATION RATE 5 mm/hr (0-30)
[2022-05-13 14:30] LABS: HEMOGLOBIN A1c 5.5 %
== END ==
LOC: M LAB 12:15
PROVIDERS: ATTEND Nurse Practitioner Family
DX: S73.191D Other sprain of right hip, subsequent encounter (principal); X58.XXXD Exposure to other specified factors, subsequent encounter; Y92.89 Other specified places as the place of occurrence of the external cause; I10 Essential (primary) hypertension; I25.10 Atherosclerotic heart disease of native coronary artery without angina pectoris; E16.1 Other hypoglycemia; M62.81 Muscle weakness (generalized)

== ENCOUNTER → 2022-06-15 | Outpatient (CLI) | payer OTHER ==
[~2022-06-15] MED LIST changes: +TIZA2TA PO
== END ==
LOC: M LABSMTC 10:40
PROVIDERS: ATTEND Anesthesiology
DX: Z11.52 Encounter for screening for COVID-19 (principal); Z20.822 Contact with and (suspected) exposure to COVID-19

== ENCOUNTER 2022-06-18 07:00 | Day surgery (SDC) | payer OTHER ==
[~2022-06-18] VITALS: Ht 170.2 cm; Wt 59.0 kg
[~2022-06-18 07:00] MED LIST changes: +VANCOMYCIN HCL 1,000 MG, VIAL MATE ADAPTER 1 EACH in D5W 250 ML IV ONE
[2022-06-18] MEDS: LR 1,000 ML IV SCH ×2 (08:08→08:42)
[2022-06-18] MEDS ORDERED: propofoL 500 MG/50 ML VIAL As Ordered ONE (08:21)
[2022-06-18] MEDS ORDERED: LIDOCAINE 2% 100MG/5ML SDV (FOR ANES.) As Ordered ONE (08:21)
[2022-06-18] MEDS ORDERED: MIDAZOLAM INJ 2MG/2ML VIAL (J2250 PER 1MG) As Ordered ONE (08:22)
[2022-06-18] MEDS ORDERED: fentaNYL 100 MCG/2 ML INJECTION As Ordered ONE (08:22)
[2022-06-18] MEDS ORDERED: BUPIVACAINE HCL 0.5% 30ML VIAL As Ordered ONE (08:42)
[2022-06-18] MEDS ORDERED: LIDOCAINE 2% MDV 20ML VIAL As Ordered ONE (08:42)
[2022-06-18] MEDS ORDERED: GENTAMICIN SULF 80MG/2ML VIAL As Ordered ONE (08:42)
[2022-06-18] MEDS ORDERED: dexameTHASONE 4 MG/ML 1ML VIAL (J1100 PER 1MG) As Ordered ONE ×2 (08:42→09:34)
[2022-06-18] MEDS ORDERED: ROPIvacaine 0.5% 30ML INJECTION (J2795 PER 1MG) As Ordered ONE (09:10)
[2022-06-18] MEDS ORDERED: ACETAMINOPHEN 1000MG 100ML IV BTL (OFIRMEV) (J0131 PER 10MG) As Ordered ONE (09:34)
[2022-06-18] MEDS ORDERED: ONDANSETRON 4MG 2ML VIAL As Ordered ONE (09:34)
[2022-06-18] MEDS ORDERED: ePHEDrine SULFATE 25 MG/5 ML(5MG/ML) SYRINGE As Ordered ONE (09:40)
[2022-06-18 11:00] VITALS: BP 113/56
== END 2022-06-18 11:15 | disposition home or self-care (01) ==
LOC: M SDC 07:00
PROVIDERS: ATTEND Podiatrist
DX: M21.621 Bunionette of right foot (principal); M20.41 Other hammer toe(s) (acquired), right foot; I10 Essential (primary) hypertension; R01.1 Cardiac murmur, unspecified; I47.1 Supraventricular tachycardia; E78.5 Hyperlipidemia, unspecified; K21.9 Gastro-esophageal reflux disease without esophagitis; I25.2 Old myocardial infarction; M79.7 Fibromyalgia; F32.A Depression, unspecified; I25.118 Atherosclerotic heart disease of native coronary artery with other forms of angina pectoris; M32.9 Systemic lupus erythematosus, unspecified; F17.200 Nicotine dependence, unspecified, uncomplicated; E16.1 Other hypoglycemia; Z98.84 Bariatric surgery status; Z79.899 Other long term (current) drug therapy; Z88.1 Allergy status to other antibiotic agents; Z88.5 Allergy status to narcotic agent; Z88.8 Allergy status to other drugs, medicaments and biological substances; Z87.891 Personal history of nicotine dependence
CPT/HCPCS: 28110; 28285; 73630; 88300; C1713; J0131; J1100; J1580; J2250; J2405; J2795; J3010; J3370

== ENCOUNTER → 2022-06-23 | Outpatient (CLI) | payer OTHER ==
[~2022-06-23] MED LIST changes: -VANCOMYCIN HCL 1,000 MG, VIAL MATE ADAPTER 1 EACH in D5W 250 ML IV ONE
== END ==
LOC: M WHC 07:43
PROVIDERS: ATTEND Nurse Practitioner Family
DX: R92.8 Other abnormal and inconclusive findings on diagnostic imaging of breast (principal)

== ENCOUNTER → 2022-06-30 | Outpatient (CLI) | payer OTHER ==
[2022-06-30 15:07] LABS: FREE T4 1.1 NG/DL (0.76-1.46); THYROID STIMULATING HORMONE 0.72 uIU/ML (0.358-3.740)
[2022-06-30 15:32] LABS: PROLACTIN 3.1 NG/ML
== END ==
LOC: M PLALAB 10:47
PROVIDERS: ATTEND Surgery
DX: N64.52 Nipple discharge (principal)

== ENCOUNTER → 2022-07-09 | Outpatient (CLI) | payer OTHER ==
[~2022-07-09] MED LIST changes: +ISOVUE-300 61% 50ML VIAL ONE; +LIDOCAINE 1% MDV 20ML VIAL ONE; +TRIAMCINOLONE ACETONIDE SUSP 40 MG/ML VIAL (J3301) ONE
== END ==
LOC: M PLAIMG 14:43 → M RADPRO 14:43
PROVIDERS: ATTEND Physician Assistant
DX: M16.11 Unilateral primary osteoarthritis, right hip (principal)

== ENCOUNTER → 2022-07-16 | Outpatient (CLI) | payer OTHER ==
[~2022-07-16] MED LIST changes: -ISOVUE-300 61% 50ML VIAL ONE; -LIDOCAINE 1% MDV 20ML VIAL ONE; -TRIAMCINOLONE ACETONIDE SUSP 40 MG/ML VIAL (J3301) ONE
== END ==
LOC: M RAD 16:03
PROVIDERS: ATTEND Nurse Practitioner Family
DX: Z12.2 Encounter for screening for malignant neoplasm of respiratory organs (principal); F17.210 Nicotine dependence, cigarettes, uncomplicated

== ENCOUNTER → 2022-07-19 | Outpatient (RCR) | payer OTHER | LOC: M PT 07-16 09:30 | PROVIDERS: ATTEND Nurse Practitioner Family | DX: M89.8X1 Other specified disorders of bone, shoulder (principal); M54.2 Cervicalgia ==

== ENCOUNTER 2022-07-29 10:39 | Emergency (ER) | payer OTHER ==
[2022-07-29] MEDS ORDERED: ACET-683 PO (13:15)
[2022-07-29] MEDS ORDERED: GABA-283 (13:15)
[2022-07-29] MEDS ORDERED: OXYC1TAB23 (13:15)
[2022-07-29] MEDS ORDERED: LIDOCAINE 5% (LIDODERM) PATCH TD ONE (13:55)
[2022-07-29] MEDS ORDERED: KETOROLAC 60MG 2ML VIAL IM ONE (13:55)
[2022-07-29] MEDS ORDERED: diazePAM 10 MG TAB PO ONE (13:55)
[2022-07-29] MEDS ORDERED: ONDANSETRON 4MG ORAL DISINTEGRATING TAB PO ONE (14:10)
[2022-07-29] MEDS ORDERED: MORPHINE 2 MG/ML 1ML VIAL IV ONE (17:40)
[2022-07-29] MEDS ORDERED: ONDANSETRON 4MG 2ML VIAL IV ONE (17:40)
[2022-07-29] MEDS ORDERED: OXYCODONE/APAP 5MG/325MG(HOME DOSE PACK) PO ONE (20:25)
[2022-07-29] MEDS ORDERED: PHENAZOPYRIDINE 100 MG TAB PO ONE (20:25)
[2022-07-29] MEDS ORDERED: NITROFURANTOIN (MACROBID) 100 MG CAP PO ONE (20:25)
[2022-07-29] MEDS ORDERED: PRED20TA PO (20:32)
[2022-07-29] MEDS ORDERED: MACR100C43 PO (20:32)
[2022-07-29] MEDS ORDERED: PYRI1TAB5 PO (20:32)
[2022-07-29] MEDS ORDERED: METH-1165 PO (20:32)
[2022-07-29] MEDS ORDERED: PERC5TAB12 PO (20:32)
[2022-07-29] MEDS ORDERED: predniSONE 20 MG TAB PO ONE (20:35)
[2022-07-29] MEDS ORDERED: PROMETHAZINE 25 MG TAB PO ONE (20:45)
[2022-07-29] MEDS ORDERED: ONDA4TAB6 PO (20:47)
[2022-07-29 21:17] VITALS: BP 153/91
== END 2022-07-29 21:18 | disposition home or self-care (01) ==
LOC: M ED 10:39
DX: N39.0 Urinary tract infection, site not specified (principal); M51.37 Other intervertebral disc degeneration, lumbosacral region; I10 Essential (primary) hypertension; E78.5 Hyperlipidemia, unspecified; M79.7 Fibromyalgia; J44.9 Chronic obstructive pulmonary disease, unspecified; M32.9 Systemic lupus erythematosus, unspecified; F17.200 Nicotine dependence, unspecified, uncomplicated; Z79.82 Long term (current) use of aspirin; Z79.899 Other long term (current) drug therapy; Z88.1 Allergy status to other antibiotic agents; Z88.8 Allergy status to other drugs, medicaments and biological substances; Z88.5 Allergy status to narcotic agent; Z91.81 History of falling; Z90.710 Acquired absence of both cervix and uterus; Z90.49 Acquired absence of other specified parts of digestive tract; Z98.890 Other specified postprocedural states
CPT/HCPCS: 72110; 72148; 73502; 81000; 87086; 96372; 96374; 99283; J1885; J2270; J7512

== ENCOUNTER → 2022-08-18 | Outpatient (RCR) | payer OTHER ==
[~2022-08-18] MED LIST changes: +ACET-683 PO; +GABA-283; +MACR100C43 PO; +METH-1165 PO; +ONDA4TAB6 PO; +OXYC1TAB23; +PERC5TAB12 PO; +PRED20TA PO; +PYRI1TAB5 PO
== END ==
LOC: M PT 07-22 10:34
PROVIDERS: ATTEND Nurse Practitioner Family
DX: M89.8X1 Other specified disorders of bone, shoulder (principal); M54.2 Cervicalgia

== ENCOUNTER 2022-09-14 12:39 | Outpatient (RCR) | payer OTHER ==
[~2022-09-14 12:39] MED LIST changes: +[UNRECOGNIZED DRUG - CODE] PO; -[UNRECOGNIZED DRUG - CODE] PO
== END 2022-09-18 ==
LOC: M PT 12:39
PROVIDERS: ATTEND Nurse Practitioner Family
DX: M54.50 Low back pain, unspecified (principal)

== ENCOUNTER → 2022-09-30 | Outpatient (CLI) | payer OTHER | LOC: M PLARAD 13:56 | PROVIDERS: ATTEND Orthopaedic Surgery | DX: M16.11 Unilateral primary osteoarthritis, right hip (principal); C56.3 Malignant neoplasm of bilateral ovaries; R10.31 Right lower quadrant pain; M25.551 Pain in right hip ==

== ENCOUNTER 2022-10-04 14:01 | Outpatient (RCR) | payer OTHER ==
[~2022-10-04 14:01] MED LIST changes: +ENAL1TAB48 PO; -ENAL5TA PO
== END 2022-10-19 ==
LOC: M PT 14:01
PROVIDERS: ATTEND Nurse Practitioner Family
DX: M54.50 Low back pain, unspecified (principal)

== ENCOUNTER → 2022-12-16 | Outpatient (CLI) | payer OTHER ==
[2022-12-16 10:02] LABS: HEMATOCRIT 44.8 % (36.0-47.0); HEMOGLOBIN 14.6 g/dl (12.0-15.5); MEAN CORPUSCULAR HEMOGLOBIN 32.5 pg (27.0-33.0); MEAN CORPUSCULAR HGB CONC 32.6 g/dl (32.0-36.5); MEAN CORPUSCULAR VOLUME 99.8 fl (80.0-96.0); PLATELET COUNT, AUTOMATED 193 10^3/uL (150-450); RED BLOOD COUNT 4.49 10^6/uL (4.00-5.40); WHITE BLOOD COUNT 9.2 10^3/uL (4.0-10.0)
[2022-12-16 10:38] LABS: ALBUMIN 3.8 G/DL (3.2-5.2); ALKALINE PHOSPHATASE 55 U/L (46-116); ALT/SGPT 21 U/L (7.0-40); AST/SGOT 18 U/L (<34); BILIRUBIN,TOTAL 0.6 MG/DL (0.3-1.2); BLOOD UREA NITROGEN 11 MG/DL (9-23); CALCIUM LEVEL 9.7 MG/DL (8.5-10.1); CARBON DIOXIDE LEVEL 30 MMOL/L (20-31); CHLORIDE LEVEL 106 MMOL/L (98-107); CHOLESTEROL LEVEL 136 MG/DL (<200); CHOLESTEROL RISK RATIO 3.01 (<5); CREATININE FOR GFR 0.59 MG/DL (0.55-1.30); GLOMERULAR FILTRATION RATE > 60.0 (>51); GLUCOSE, FASTING 86 MG/DL (60-100); HDL CHOLESTEROL 45.1 MG/DL (>40); LDL CHOLESTEROL 75.9 MG/DL (<100); MAGNESIUM LEVEL 1.8 MG/DL (1.8-2.4); NON-HDL-C 90.9 MG/DL; POTASSIUM SERUM 4.3 MMOL/L (3.5-5.1); SODIUM LEVEL 140 MMOL/L (136-145); TOTAL PROTEIN 6.2 G/DL (5.7-8.2); TRIGLYCERIDES LEVEL 75 MG/DL (<150)
== END ==
LOC: M LAB 08:35
PROVIDERS: ATTEND Physician Assistant
DX: R00.2 Palpitations (principal); I10 Essential (primary) hypertension; E78.00 Pure hypercholesterolemia, unspecified; I25.118 Atherosclerotic heart disease of native coronary artery with other forms of angina pectoris

== ENCOUNTER → 2023-08-25 | Outpatient (REF) | payer OTHER ==
[~2023-08-25] MED LIST changes: -EFFE150C2 PO; +EFFE150C3 PO; -GABA-283; -GABA-283 PO; +GABA-284; +GABA-284 PO; -ROSU20TA5 PO; +ROSU20TA61 PO
[2023-08-25 12:22] LABS: BASO # 0.1 10^3/uL (0.0-0.2); BASO % 0.7 % (0.0-1.0); EOS # 0.3 10^3/uL (0.0-0.5); EOS % 3.4 % (0.0-3.0); HEMOGLOBIN 13.9 g/dl (12.0-15.5); LYMPH # 2.2 10^3/uL (1.5-5.0); LYMPH % 25.6 % (24.0-44.0); MEAN CORPUSCULAR HEMOGLOBIN 32.5 pg (27.0-33.0); MEAN CORPUSCULAR HGB CONC 33.1 g/dl (32.0-36.5); MEAN CORPUSCULAR VOLUME 98.1 fl (80.0-96.0); MONO # 0.5 10^3/uL (0.0-0.8); MONO % 5.4 % (2.0-8.0); NEUTROPHILS # 5.5 10^3/uL (1.5-8.5); NEUTROPHILS % 64.7 % (36.0-66.0); PLATELET COUNT, AUTOMATED 214 10^3/uL (150-450); RED BLOOD COUNT 4.28 10^6/uL (4.00-5.40); WHITE BLOOD COUNT 8.5 10^3/uL (4.0-10.0)
[2023-08-25 12:42] LABS: ALBUMIN 4.1 G/DL (3.2-5.2); ALKALINE PHOSPHATASE 54 U/L (46-116); ALT/SGPT 25 U/L (7.0-40); AST/SGOT 19 U/L (<34); BILIRUBIN,TOTAL 0.5 MG/DL (0.3-1.2); BLOOD UREA NITROGEN 10 MG/DL (9-23); CALCIUM LEVEL 9.7 MG/DL (8.5-10.1); CARBON DIOXIDE LEVEL 29 MMOL/L (20-31); CHLORIDE LEVEL 104 MMOL/L (98-107); CHOLESTEROL LEVEL 138 MG/DL (<200); CHOLESTEROL RISK RATIO 3.01 (<5); CREATININE FOR GFR 0.54 MG/DL (0.55-1.30); GLOMERULAR FILTRATION RATE > 60.0 (>51); GLUCOSE, FASTING 77 MG/DL (60-100); HDL CHOLESTEROL 45.7 MG/DL (>40); LDL CHOLESTEROL 72.3 MG/DL (<100); MAGNESIUM LEVEL 1.9 MG/DL (1.8-2.4); NON-HDL-C 92.3 MG/DL; POTASSIUM SERUM 4.5 MMOL/L (3.5-5.1); SODIUM LEVEL 138 MMOL/L (136-145); TOTAL PROTEIN 6.6 G/DL (5.7-8.2); TRIGLYCERIDES LEVEL 100 MG/DL (<150)
[2023-08-25 12:46] LABS: FREE T4 1.17 NG/DL (0.89-1.76); THYROID STIMULATING HORMONE 1.608 uIU/ML (0.55-4.78); TOTAL 25(OH) VITAMIN D 19.8 NG/ML (20.0-100.0)
== END ==
LOC: M SFHCCLAY 09:32
PROVIDERS: ATTEND Nurse Practitioner Family
DX: E78.2 Mixed hyperlipidemia (principal); F17.210 Nicotine dependence, cigarettes, uncomplicated; I10 Essential (primary) hypertension; M53.9 Dorsopathy, unspecified; I25.10 Atherosclerotic heart disease of native coronary artery without angina pectoris

== ENCOUNTER → 2023-09-02 | Outpatient (CLI) | payer OTHER | LOC: M WHC 08:59 | PROVIDERS: ATTEND Nurse Practitioner Family | DX: Z12.31 Encounter for screening mammogram for malignant neoplasm of breast (principal) ==

== ENCOUNTER → 2023-09-21 | Outpatient (CLI) | payer OTHER | LOC: M WHC 08:19 | PROVIDERS: ATTEND Nurse Practitioner Family | DX: Z12.31 Encounter for screening mammogram for malignant neoplasm of breast (principal) ==

== ENCOUNTER → 2023-09-27 | Outpatient (CLI) | payer OTHER | LOC: M CLY 11:08 | PROVIDERS: ATTEND Nurse Practitioner Family | DX: S05.90XA Unspecified injury of unspecified eye and orbit, initial encounter (principal); X58.XXXA Exposure to other specified factors, initial encounter; Y92.9 Unspecified place or not applicable; Y93.9 Activity, unspecified; Y99.9 Unspecified external cause status ==

== ENCOUNTER → 2023-09-29 | Outpatient (CLI) | payer OTHER | LOC: M RAD 13:33 | PROVIDERS: ATTEND Nurse Practitioner Family | DX: Z12.2 Encounter for screening for malignant neoplasm of respiratory organs (principal); F17.210 Nicotine dependence, cigarettes, uncomplicated ==

== ENCOUNTER → 2023-10-19 | Outpatient (CLI) | payer OTHER | LOC: M WHC 10:23 | PROVIDERS: ATTEND Physician Assistant Surgical | DX: S22.070A Wedge compression fracture of T9-T10 vertebra, initial encounter for closed fracture (principal); S22.060A Wedge compression fracture of T7-T8 vertebra, initial encounter for closed fracture; Y93.9 Activity, unspecified; Y92.9 Unspecified place or not applicable ==

== ENCOUNTER → 2023-11-14 | Outpatient (CLI) | payer OTHER | LOC: M PLAIMG 08:58 | PROVIDERS: ATTEND Pain Medicine Interventional Pain Medicine | DX: M48.54XA Collapsed vertebra, not elsewhere classified, thoracic region, initial encounter for fracture (principal); M47.9 Spondylosis, unspecified; M51.26 Other intervertebral disc displacement, lumbar region ==

== ENCOUNTER → 2023-11-21 | Outpatient (CLI) | payer OTHER | LOC: M CARPUL 07:24 | PROVIDERS: ATTEND Nurse Practitioner Family | DX: J43.9 Emphysema, unspecified (principal) ==